=== PATIENT | female | born 1950 | race Asian ===

== ENCOUNTER 2022-09-21 10:15 | Emergency (ER) | payer MEDICARE, SELFPAY ==
--- NOTE | ~2022-09-21 | XR_ITS ---
EXAMINATION: XR knee RT 3V DATE: 09/21/2022 11:56 INDICATION: Right knee pain TECHNIQUE: Three views of the right knee were obtained. COMPARISON: None. FINDINGS: Alignment is normal. No fracture or osteochondral lesion. There is mild tricompartmental os teoarthritis characterized by tiny marginal osteophytes. No joint effusion/synovitis. Soft tissues a re unremarkable. IMPRESSION: 1. No acute osseous abnormality. Reviewed, dictated and finalized at location L.
--- NOTE | ~2022-09-21 | XR_ITS ---
EXAMINATION: XR foot RT min 3V DATE: 09/21/2022 10:49 INDICATION: Right foot pain TECHNIQUE: Dorsoplantar, lateral, and 2 oblique views of the right foot were obtained. COMPARISON: 10/09/2014 FINDINGS: There is a healed fracture in the distal aspect of the fifth metatarsal. No acute fracture is identified. There is mild to moderate polyarticular osteoarthritis. The soft tissues are unremarka ble. IMPRESSION: 1. Healed fifth metatarsal fracture without acute osseous abnormality. Reviewed, dictated and finalized at location L.
[2022-09-21 10:30] VITALS: BP 95/64; PULSE 63; RESP 18; TEMP 36.5; O2SAT 97
--- NOTE | 2022-09-21 11:40 | ED.GENADULT ---
HPI - General Adult General Chief complaint: Extremity Injury, Lower Stated complaint: right foot pain Time Seen by Provider: 09/21/22 11:08 Source: patient Mode of arrival: wheelchair Limitations: no limitations History of Present Illness HPI narrative: This is a 71-year-old female presents to the ED with chief complaint of right foot pain and right knee pain following an injury this morning. Patient states that she was walking outside and stepped on pinecone which caused her to twist and fall down to the ground. States she was initially ambulatory but started to have more pain with ambulation when she got here. Denies any further site of pain or injury. Denies any pop. Denies numbness, weakness. Related Data Allergies Allergy/AdvReac Type Severity Reaction Status Date / Time No Known Allergies Allergy Unverified 08/02/14 22:39 Review of Systems Review of Systems: CONSTITUTIONAL: Denies fever, chills, or sweats. SKIN: Endorses bruising. Denies rash or itching. MUSCULOSKELETAL: Endorses right foot pain and right knee pain. Denies back pain, joint pain, or myalgia. NEUROLOGIC: Denies headache, numbness, dizziness, or weakness. PSYCHIATRIC: Denies anxiety or depression. PMFSH Social History Social History Smoking status: Never smoker Alcohol intake: never Exam Narrative: GENERAL: Well-appearing, well-nourished, and in no acute distress. Presents in wheelchair for mobility. HEAD: Normocephalic, atraumatic. EYES: PERRLA and EOMI. EXTREMITIES: Right knee: Medial bruising. Mild effusion. Mild tenderness medially. No deformity. Normal range of motion. No edema. Left knee: Benign Right foot: Mild bruising to the dorsum of the midfoot. Mild tenderness to the dorsum of the midfoot. No deformity. No swelling. Left foot: Benign MSK exam is otherwise benign. Neurovascularly intact distally in the right lower extremity. Soft compartments. SKIN: Warm, dry, no rash. NEURO: Alert and oriented x3. No focal deficits. PSYCH: Normal mood and affect. Course Vital Signs Vital signs: Vital Signs Temperature 97.7 F 09/21/22 10:30 Pulse Rate 63 09/21/22 10:30 Respiratory Rate 18 09/21/22 10:30 Blood Pressure 95/64 L 09/21/22 10:30 Pulse Oximetry 97 09/21/22 10:30 Oxygen Delivery Room Air 09/21/22 10:30 Temperature 97.7 F 09/21/22 10:30 Pulse Rate 63 09/21/22 10:30 Respiratory Rate 18 09/21/22 10:30 Blood Pressure 95/64 L 09/21/22 10:30 Pulse Oximetry 97 09/21/22 10:30 Oxygen Delivery Room Air 09/21/22 10:30 Medical Decision Making MDM Narrative Medical decision making narrative: This is a 71-year-old female presents to the ED with chief complaint of right foot pain and right knee pain after an injury this morning. She was walking outside and stepped on a pinecone which caused her to fall. Vitals are stable. Tells me that her blood pressure normally runs pretty low. She has some bruising to the medial right knee as well as to the dorsum of the right foot. Mild tenderness in those areas. Imaging does not reveal any acute fractures or dislocations. I do not see evidence of a Lisfranc injury. Informed the patient that her imaging was negative and that she would be given Rigo wrap and crutches for comfort. She is to follow-up with her primary care on this problem. If she does not get better, she may need orthopedic follow-up. Supportive measures discussed, return precautions given. Patient is understanding and agreeable with plan for discharge. Vital Signs Vital Signs: Vital Signs Temperature 97.7 F 09/21/22 10:30 Pulse Rate 63 09/21/22 10:30 Respiratory Rate 18 09/21/22 10:30 Blood Pressure 95/64 L 09/21/22 10:30 Pulse Oximetry 97 09/21/22 10:30 Oxygen Delivery Room Air 09/21/22 10:30 Temperature 97.7 F 09/21/22 10:30 Pulse Rate 63 09/21/22 10:30 Respiratory Rate 18 09/21/22 10:30 Blood Pressure 95/64 L 09/21/22 10:30 Pulse
== END 2022-09-21 12:30 | disposition home or self-care (01) ==
PROVIDERS: Emergency Provider Physician Assistant
DX: S80.01XA Contusion of right knee, initial encounter (principal); S90.31XA Contusion of right foot, initial encounter; W01.0XXA Fall on same level from slipping, tripping and stumbling without subsequent striking against object, initial encounter
CPT/HCPCS: 73562; 73630; 99284

== ENCOUNTER 2022-12-13 14:26 | Emergency (ER) | payer MEDICARE, SELFPAY ==
--- NOTE | ~2022-12-13 | XR_ITS ---
EXAM: XR foot LT min 3V DATE: 12/13/2022 15:24 HISTORY: injury / pain LATERAL FOOT PAIN . COMPARISON: None available. FINDINGS: Decreased mineralization. Mildly comminuted fracture of the distal shaft of the left fifth metatarsal with minimal medial displacement and plantar angulation. No lytic or blastic lesion. Join t spaces are maintained. Plantar enthesopathy. No erosion or periosteal change. Soft tissue swelling over the fracture site. IMPRESSION: Comminuted, minimally displaced and angulated fracture of the left fifth metatarsal shaft . Reviewed, dictated and finalized at location K. IMPRESSION: Comminuted, minimally displaced and angulated fracture of the left fifth metatarsal shaft.
[2022-12-13 14:39] VITALS: BP 124/77; PULSE 83; RESP 16; TEMP 36.8; O2SAT 99
--- NOTE | 2022-12-13 16:11 | ED.LOWEXIN ---
HPI - Extremity Injury (Lower) General Chief Complaint: Extremity Injury, Lower Stated Complaint: L foot pain Time Seen by Provider: 12/13/22 14:56 History of Present Illness HPI Narrative: Patient is a 71-year-old female here for evaluation of left foot pain x4 hours. Patient states that she missed a step when she was getting off of her stepstool and she landed with her foot and eversion. Since then she has had pain and swelling to the lateral aspect of her left foot and she has not been able to bear weight due to the discomfort. She took Tylenol prior to arrival. She had no numbness, tingling, weakness in the foot. Related Data Allergies Allergy/AdvReac Type Severity Reaction Status Date / Time No Known Allergies Allergy Unverified 08/02/14 22:39 Review of Systems Review of Systems: Gen.: Denies fevers or chills Eyes: Denies eye pain or visual change ENT: Denies congestion Respiratory: Denies shortness of breath or cough CV: Denies chest pain or palpitations GI: Denies abdominal pain nausea, emesis or diarrhea denies burning, urgency, frequency or hematuria Musculoskeletal: Reports left foot pain Neuro: Denies numbness, tingling, weakness or focal weakness Skin: Denies rash Except as documented, all other systems reviewed and negative [facility] Social History Social History Smoking status: Never smoker Alcohol intake: never Exam Narrative: Gen: Alert, oriented, no acute distress Eyes: EOMI, no icterus Pulm: Respirations even and unlabored, symmetric thorax expansion, no audible stridor or visible cyanosis CV: 2+ DP PT pulses bilaterally. GI: No distension, no voluntary/involuntary guarding Neuro: AOx4, moves all extremities without apparent difficulty or weakness, follows commands MSK: There is tenderness to palpation to the medial third of the left fifth metatarsal. There is no overlying bruising or swelling or deformity. She has no tenderness to palpation along the ankle joint, knee or hip. Skin: No break in the skin integrity in the left foot. No jaundice, no visible bruising, rashes, lesions or wounds on exposed skin Psych: Normal mood/affect, insight/judgement good, adequate fund of knowledge, recent/remote memory intact Course Vital Signs Vital signs: Vital Signs Temperature 98.2 F 12/13/22 14:39 Pulse Rate 83 12/13/22 14:39 Respiratory Rate 16 12/13/22 14:39 Blood Pressure 124/77 12/13/22 14:39 Pulse Oximetry 99 12/13/22 14:39 Temperature 98.2 F 12/13/22 14:39 Pulse Rate 82 12/13/22 16:45 Respiratory Rate 16 12/13/22 16:45 Blood Pressure 123/80 12/13/22 16:45 Pulse Oximetry 98 12/13/22 16:45 MDM - Extremity Injury (Lower) MDM Narrative Medical decision making narrative: 71-year-old female here for evaluation of left foot pain after inversion injury earlier today with evidence of a comminuted left fifth metatarsal fracture on the x-ray. NVID and she has soft compartments. Patient unable to bear weight, she was placed in a splint and provided with orthopedic follow-up. She declines pain meds in the ED. We discussed return precautions and she voiced understanding. Discharge Plan Discharge Clinical Impression: Fracture of fifth metatarsal bone of left foot Patient Disposition: Home, Self-Care Condition: Stable Instructions: Antibiotic Form, Foot Fracture in Adults (ED), Splint Care (ED) Additional Instructions: You are found to have a fracture in one of the bones in your feet, please wear the splint as directed and follow-up with orthopedist next week. Return to the ED if your toes feel numb and tingly, you have worsening pain, you cannot move the toes. Follow-up/Referrals: PHYSICIAN NOT ON STAFF,NONSTAFF [Primary Care Provider] -
[2022-12-13 16:45] VITALS: BP 123/80; PULSE 82; RESP 16; O2SAT 98
== END 2022-12-13 16:45 | disposition home or self-care (01) ==
PROVIDERS: Emergency Provider Physician Assistant
DX: S92.352A Displaced fracture of fifth metatarsal bone, left foot, initial encounter for closed fracture (principal); W10.9XXA Fall (on) (from) unspecified stairs and steps, initial encounter
CPT/HCPCS: 29515; 73630; 99284

== ENCOUNTER 2025-05-20 15:08 | Emergency (ER) | payer MEDICARE, SELFPAY ==
--- OUTSIDE RECORDS SUMMARY | 2025-05-19 14:00 | XMS_ITS | Encounter Summary ---
Author Organization [facility] Address [address] [facility] [address] [place] [address] Phone Care Team Providers Care Banquet Server Name Role Phone Jeffry Horton MD Primary Care Provider [phone] Ligia Larsen MD Unavailable AftJennie MD PhD Unavailable Donna Moser PhD Unavailable [phone] Nae Hunt SPA ASSOCIATE Unavailable [phone] Trino Loza MD Unavailable [phone] Danika Elizondo MD PhD Unavailable [phone] Reason for Visit * Consultation (Urgent) - Authorized Specialty Diagnoses / Procedures Referred By Alex gomez Referred To Contact Thoracic Surgery / Thoracic Diseases Diagnoses Thymic carcinoma (HCC) Danika Elizondo MD PhD [address] [place] [address] Phone: tel: fax: Kelley Kohler MD [address] [facility] [address] [place] [address] Phone: tel: fax: Referral ID Status Reason Start Date Expiration Date Visits Requested Visits Authorized [id number] Authorized Specialty Services Required 06/04/2026 99 99 Encounter Details Date Type Department Care Team (Late st Contact Info) Description 05/19/2025 2:00 PM INTERNET MANAGER Office Visit [facility] Medicine Surgery [address] [facility] [address] [place] [id number] Kelley Kohler MD [id number] [place] [address] Thymic carcinoma (HCC) (Primary Dx) Social History Tobacco Use Types Packs/Day Years Used Date Smoking Tobacco: Never Passive Smoke Exposure: Never Smokeless Tobacco: Never Alcohol Use Standard Drinks/Week Comments No 0 (1 standard drink = 0.6 oz pur e alcohol) PHQ-2 Answer Date Recorded PHQ-2 Total Score (If total score is 3 or more points, staff should administer the PHQ-9) 2 04/16/2025 AUDIT-C Answer Date Recorded Frequency of Alcohol Consumption Not on file 03/19/2025 Q2: How many drinks containi ng alcohol do you have on a typical day when you are drinking? Patient does not drink Frequency of Binge Drinking Not on file 07/2024 Personal Safety Answer Date Recorded Have you ever been in or are you currently in a harmful physical or emotional relationship or is someone making you feel afraid or unsafe? 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 Not on file Not on file Not on file documented as of this encounter Last Filed Vital Signs Vital Sign Reading Time Taken Comments Blood Pressure 122/75 05/19/2025 1:52 PM INTERNET MANAGER Pulse 71 05/19/2025 1:52 PM INTERNET MANAGER Temperature 36.3 C (97.3 F) 05/19/2025 1:52 PM INTERNET MANAGER Respiratory Rate 18 05/19/2025 1:52 PM INTERNET MANAGER Oxygen Saturation 98% 05/19/2025 1:52 PM INTERNET MANAGER Inhaled Oxygen Concentration - - Weight 66 kg (145 lb 8 oz) 05/19/2025 1:52 PM CS T Height - - Body Mass Index 25.77 05/13/2025 4:46 PM INTERNET MANAGER documented in this encounter Functional Status * BP Location Answer Date of Assessment Author Left arm 05/19/2025 1:52 PM INTERNET MANAGER Demario Lees CMA * BP Location Answer Date of Assessment Author Left arm 05/19/2025 1:52 PM INTERNET MANAGER Demario Lees CMA documented as of this encounter Progress Notes * Kelley Kohler MD - 05/19/2025 2:00 PM CST Images from the original note were not included. Consult requested by: Danika Elizondo MD PhD PCP: Jeffry Horton MD New Patient Consult Dear Dr. Elizondo: Thank you for asking me to see Hari Rocha in consultation. I saw the patient in clinic today with a steam turbine operator: Adonay Craig SPA ASSOCIATE. As you know, Hari Rocha is a 74 y.o. female here for the main complaint of thymic carcinoma HPI: Hari Rocha is a 74 y.o. female never smoker who had previous left breast cancer (stage I s/p RT/chemo) who presented with hemoptysis in 01/13/25 and was found to have a soft tissue right anterior mediastinal mass. This was found when she had hemoptysis in December [address] [facility] Diagnosed with PNA and treated - follow up CT showed this soft-tissue mass in the mediastinum She walks 2 miles/day Breast surgery but no other chest surgeries, laminectomies and MRIs in previous imaging ROS: The review of systems was scanned in as a separate entry and I personally reviewed this. History: I have reviewed and agree with the past medical history, social history, family history and review of systems entered into the medical record. We also reviewed and updated the medication list and allergies. The history was pertinent for breast cancer (stage I, s/p partial mastectomy and radiation and TCx4 cycles in 2015), hypercholesteremia, DDD, spinal stenosis, LEONEL on CPAP, GERD, glaucoma. The patient's smoking history: reports that she has never smoked. She has never been exposed to tobacco smoke. She has never used smokeless tobacco. OBJECTIVE: Vitals BP 122/75 (BP Location: Left arm, Patient Position: Sitting) Pulse 71 Temp 36.3 ??C (97.3 ??F) (Temporal) Resp 18 Wt 66 kg (145 lb 8 oz) SpO2 98% BMI 25.77 kg/m?? Wt Readings from Last 1 Encounters: 05/19/25 66 kg (145 lb 8 oz) ECOG PERFORMANCE STATUS: 1 Restricted in physically strenuous activity but ambulatory and able to carry out work of a light or sedentary nature, e.g., light house work, office work Physical Exam On physical exam, patient is well appearing and in no acute distress. I have reviewed the vital signs taken in clinic today. The eyes, ears, nose and throat are normal. The skin is clear, with no icterus. No cervical or supraclavicular adenopathy. Regular rate, non-labored breathing. Abdomen is soft and nontender. There is no lower extremity edema. Skin is warm and dry. Mood and affect are normal. Patient is alert and oriented x 3. 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 3) MRI Brain 05/13/25: MRI on 05/13/2025. This was negative for intracranial metastasis. 4) MRI chest 03/28/25: FINDINGS: Again seen is a anterior mediastinal mass measuring 4.9 cm x 3.7 cm x 6.2 cm. This mass is not significantly changed in size This mass abuts the tubular ascending aorta. The mass encases the superior vena cava and left brachiocephalic vein resulting in mass effect and mild stenosis. There is additional abutment of subsegmental branches of the right upper lobe pulmonary arteries. The mass additionally abuts the anterior pericardium, posterior sternum, and right internal mammary neurovascular bundle. The mass is mildly T2 hyperintense with heterogeneous signal due to areas of susceptibility from calcification. The mass has progressive enhancement during the dynamic phases of postcontrast imaging. This is most apparent at its periphery. No microscopic fat on in and opposed imaging. There are numerous tree-in-bud nodules in the right lung, which are better evaluated on prior CT. There is bandlike consolidation in the lingula, which is improved compared to CT within the limitations in differences in technique. THORACIC AORTA: Sinuses of Valsalva (cusp to commissure): 30 mm x 30 mm x 29 mm Sinotubular junction: 35 mm x 33 mm Ascending aorta: 42 mm x 42 mm Descending thoracic aorta: 27 mm x 27 mm IMPRESSION: 1. Right anterior mediastinal mass, which is unchanged in size compared to 01/13/2025. 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 2. Encasement of the superior vena cava and left brachiocephalic vein by the mediastinal mass. There is mild narrowing of the superior vena cava, which remains patent. There is additional abutment of multiple structures, including the tubular ascending aorta, as above. 3. Similar tree-in-bud nodules in the right lung with improvement in lingular consolidation, which may be related to an infectious granulomatous process such as atypical mycobacterium. 4. Mildly dilated ascending aorta at 42 mm. 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 The tumor is somewhat complex in that it is wrapping around the innominate vein, and it compresses the SVC extra pericardial lead. There is abutment to the aorta. It appears that this likely is resectable although I am worried about a aortic margin. To resect this tumor we would have to do a sternotomy and reconstruct thesuperior vena cava and ligate the innominate vein. There is a possibility based on the imaging thatI can tell right now that there will be a positive R 1 margin on the aorta. I talked to the patientin depth about the procedure. I talked to her about this risk. I talked to Dr. Worthington about this as well. I did talk to Dr. Elizondo about doing induction chemotherapy 1st, the patient and Dr. Worthington are not super enthusiastic about this approach given that it is quite toxic and it could set her back functionally. We talked about risks of an operation, we talked about infection, bleeding, we talked about how thephrenic nerve would likely be taken and we would try to do a diaphragm plication at the same time of the operation. We talked about the possibility of an R1 resection. We talked about the possibilityof not being able to get the tumor off the aorta. We settled that we would discuss her case at tumor board tonight and get more information from the radiologist about their interpretation of the imaging and whether or not there is a plane on the aorta that can come off. If there is then we would likely plan for a resection 1st approach and adjuvant chemotherapy. We also discussed with the radiation oncologist there thought and whether or not they can provide some adjuvant radiotherapy or her chances of treatment with radiation alone and without surgery if we thought this was unresectable after discussion with our radiologist at tumor board. I provided counseling and education to the patient and to family/caregiver. We discussed the options available at this point, and discussed the risks for morbidity with and without intervention. We discussed management of the issues and settled on the following plans for management: Plan for discussion at tumor board Potential for upfront surgical resection with diaphragm plication versus nonoperative management versus neoadjuvant chemotherapy approach Kelley Kohler MD Security Guard Dispatcher completed with [employer]. Security Guard Dispatcher variances may occur. RNET MANAGER documented in this encounter Plan of Treatment Not on file documented as of this encounter Goals Goal Patient Goal Type Associated Problems Recent Progress Patient-Stated? Author CCM Chronic Pain Care Plan Chronic Care Management No Alma Singh, RN Note: Problem: Chronic Pain Goals: 1. Minimize further functional decline 2. Maximize quality of life 3. Control pain Strategies: - Activity/exercise program recommendation - Conservative stepwise pain medicine strategy with multi-disciplinary approach - Recommend healthy lifestyle strategies and compensatory methods as needed Reduce the likelihood of falling Lifestyle No Alma Singh, RN Note: Below are four things you can do to prevent falls: Begin an exercise program to improve your leg strength & balance Ask your doctor or pharmacist to review your medicines Get annual eye check-ups & update your eyeglasses Make your home safer by: Removing clutter & tripping hazards Putting railings on all stairs & adding grab bars in the bathroom Having good lighting, especially on stairs Contact your local community or senior center for information on exercise, fall prevention programs, or options for improving home safety. 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 documented in this encounter Orders Outpatient Referral Count Last Ordered Date Fir st Ordered Date AMB REFERRAL TO THORACIC SURGERY 1 05/19/20 25 documented in this encounter Care Teams Banquet Server Relationship Specialty Start Date End Date Jeffry Horton MD [facility] [address] [address] PCP - General Internal Medicine 11/05/17 Ligia Larsen MD [address] [place] [address] Radiation Oncologist Radiation Oncology 09/10/18 AftJennie MD PhD [address] [place] [address] Surgeon Surgical Oncology 09/10/18 Donna Moser, PhD [address] [facility] [place] [address] Nurse Practitioner Radiation Oncology 09/10/18 Nae Hunt SPA ASSOCIATE [address] [place] [address] Nurse Practitioner Medical Oncology 01/12/20 Trino Loza MD [address] [facility] [place] [address] Referring Physician Pulmonary Disease 04/30/25 Danika Elizondo MD PhD [address] [facility] [place] [address] Medical Oncologist/Creative Intern Medical Oncology 04/30/25 documented as of this encounter
--- OUTSIDE RECORDS SUMMARY | 2025-05-19 14:00 | XMS_ITS | Encounter Summary ---
Author Organization [facility] Address [address] [facility] [address] [place] [address] Phone Care Team Providers Care Tank Cooper Name Role Phone Jeffry Horton MD Primary Care Provider [phone] Ligia Larsen MD Unavailable AftJennie MD PhD Unavailable Donna Moser PhD Unavailable [phone] Nae Hunt LETTER CARRIER Unavailable [phone] Trino Loza MD Unavailable [phone] Danika Elizondo MD PhD Unavailable Reason for Visit * Consultation (Urgent) - Authorized Specialty Diagnoses / Procedures Referred By Alex gomez Referred To Contact Thoracic Surgery / Thoracic Diseases Diagnoses Thymic carcinoma (HCC) Danika Elizondo MD PhD [address] [place] [address] Phone: tel: fax: Kelley Kohler MD [address] [facility] 8[address]10[address]17 [place] [address] Phone: tel: fax: Referral ID Status Reason Start Date Expiration Date Visits Requested Visits Authorized [id number] Authorized Specialty Services Required 06/04/2026 99 99 Encounter Details Date Type Department Care Team (Late st Contact Info) Description 05/19/2025 2:00 PM MALT HOUSE SUPERVISOR Office Visit [facility] Medicine Surgery [address] [facility] Floor 5 [place] [id number] Kelley Kohler MD [id number] [place] [address] Thymic carcinoma (HCC) (Primary Dx) Social History [...] on file Legal Sex Female 1:14 AM MALT HOUSE SUPERVISOR Gender Identity Female 05/14/2020 6:01 PM MALT HOUSE SUPERVISOR Sexual Orientation Straight 03/03/2019 8: 24 PM CDT 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 Not on file Not on file Not on file documented as of this encounter Last Filed Vital Signs Vital Sign Reading Time Taken Comments Blood Pressure 122/75 05/19/2025 1:52 PM MALT HOUSE SUPERVISOR Pulse 71 05/19/2025 1:52 PM MALT HOUSE SUPERVISOR Temperature 36.3 C (97.3 F) 05/19/2025 1:52 PM MALT HOUSE SUPERVISOR Respiratory Rate 18 05/19/2025 1:52 PM MALT HOUSE SUPERVISOR Oxygen Saturation 98% 05/19/2025 1:52 PM MALT HOUSE SUPERVISOR Inhaled Oxygen Concentration - - Weight 66 kg (145 lb 8 oz) 05/19/2025 1:52 PM CS T Height - - Body Mass Index 25.77 05/13/2025 4:46 PM MALT HOUSE SUPERVISOR documented in this encounter Functional Status * BP Location Answer Date of Assessment Author Left arm 05/19/2025 1:52 PM MALT HOUSE SUPERVISOR Demario Lees CMA * BP Location Answer Date of Assessment Author Left arm 05/19/2025 1:52 PM MALT HOUSE SUPERVISOR Demario Lees CMA documented as of this [...] the patient in clinic today with a presentation team member: Adonay Craig LETTER CARRIER. As you know, Hari Rocha is a [...] found when she had hemoptysis in December [address] [facility] Diagnosed with PNA and treated - follow [...] versus neoadjuvant chemotherapy approach Kelley Kohler MD Warehouse Supervisor 3Rd Shift completed with [employer]. Warehouse Supervisor 3Rd Shift variances may occur. HOUSE SUPERVISOR documented in this encounter Plan of Treatment [...] 25 documented in this encounter Care Teams Tank Cooper Relationship Specialty Start Date End Date Jeffry Horton MD [facility]0 [facility] [address] [address] PCP - General Internal Medicine 11/05/17 Ligia Larsen MD [address] [facility] [address] [place] [address] Radiation Oncologist Radiation Oncology 09/10/18 AftJennie MD PhD [address] [place] [address] Surgeon Surgical Oncology 09/10/18 Donna Moser, PhD [address] [facility] [address] [place] [address] Nurse Practitioner Radiation Oncology 09/10/18 Nae uHnt LETTER CARRIER [address] [place] [address] Nurse Practitioner Medical Oncology 01/12/20 Trino Loza MD [address] DIV IM PULMONARY AND CCM, [address] [place] [address] Referring Physician Pulmonary Disease 04/30/25 Danika Elizondo MD PhD [address] [facility] MEDICAL ONCOLOGY, [address], [address]B, [address] [place] [address] Medical Oncologist/Furnace Firer Medical Oncology 04/30/25 documented as of this encounter
--- OUTSIDE RECORDS SUMMARY | 2025-05-19 15:00 | XMS_ITS | Encounter Summary ---
Author Organization [facility] Address [address] [place] [address] Phone Care Team Providers Care Resource Director Name Role Phone Jeffry Horton MD Primary Care Provider [phone] Ligia Larsen MD Unavailable Aft, Jennie Pack MD PhD Unavailable Donna Moser PhD Unavailable [phone] Nae Hunt NAILHEAD SETTER Unavailable [phone] Trino Loza MD Unavailable [phone] Danika Elizondo MD PhD Unavailable [phone] Encounter Details Date Type Department Care Team (Late st Contact Info) Description 05/19/2025 3:00 PM POSTAL SORTING OFFICER Office Visit [facility] Medicine Oncology [address] [facility] Floor 5 [place] [address] Danika Elizondo MD PhD [address] [place] [address] Thymic carcinoma (HCC) Social History Tobacco Use Types Packs/Day Years [...] on file Legal Sex Female 1:14 AM POSTAL SORTING OFFICER Gender Identity Female 05/14/2020 6:01 PM POSTAL SORTING OFFICER Sexual Orientation Straight 03/03/2019 8: 24 PM CDT 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 documented in this encounter Orders Appointment Requests Count Last Ordered Date Fi rst Ordered Date ONCBCN CLINIC APPOINTMENT REQUEST 1 025 documented in this encounter Care Teams Resource Director Relationship Specialty Start Date End Date Jeffry Horton MD [address] [place] [address] [address] [facility] [address] [place] [address] PCP - General Internal Medicine 11/05/17 Ligia Larsen MD [address] [place] [address] Radiation Oncologist Radiation Oncology 09/10/18 IvonnetJennie MD PhD [address] [place] [address] Surgeon Surgical Oncology 09/10/18 Donna Moser, PhD [address] [place] [address] Nurse Practitioner Radiation Oncology 09/10/18 Nae Hunt, NAILHEAD SETTER [address] [place] [address] Nurse Practitioner Medical Oncology 01/12/20 Trino Loza MD [address] DIV IM PULMONARY AND CCM, [address] [place] [address] Referring Physician Pulmonary Disease 04/30/25 Danika Elizondo MD PhD [address] DIV IM MEDICAL ONCOLOGY, [facility] 7A, 7B, [address] [place] [address] Medical Oncologist/Heddler Tier Medical Oncology 04/30/25 documented as of this encounter
--- OUTSIDE RECORDS SUMMARY | 2025-05-19 15:00 | XMS_ITS | Encounter Summary ---
Author Organization [facility] Address [address] [place] [address] Phone Care Team Providers Care Entry Level Accountant Name Role Phone Jeffry Horton MD Primary Care Provider Ligia Larsen MD Unavailable Aft, Jennie Pack MD PhD Unavailable [phone] Donna Moser PhD Unavailable [phone] Nae Hunt ORACLE DATABASE ARCHITECT Unavailable Trino Loza MD Unavailable [phone] Danika Elizondo MD PhD Unavailable [phone] Encounter Details Date Type Department Care Team (Late st Contact Info) Description 05/19/2025 3:00 PM COMMODITIES REQUIREMENTS ANALYST Office Visit [facility] Medicine Oncology [address] [facility] Floor 5 [place] [address] Danika Elizondo MD PhD [address] [place] [address] Thymic carcinoma (HCC) Social History [...] on file Legal Sex Female 1:14 AM COMMODITIES REQUIREMENTS ANALYST Gender Identity Female 05/14/2020 6:01 PM COMMODITIES REQUIREMENTS ANALYST Sexual Orientation Straight 03/03/2019 8: 24 PM CDT 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 documented in this encounter Orders Appointment Requests Count Last Ordered Date Fi rst Ordered Date ONCBCN CLINIC APPOINTMENT REQUEST 1 025 documented in this encounter Care Teams Entry Level Accountant Relationship Specialty Start Date End Date Jeffry Horton MD [address] [place] [address] [address] [facility] [address] [place] [address] PCP - General Internal Medicine 11/05/17 Ligia Larsen MD [address] [place] [address] Radiation Oncologist Radiation Oncology 09/10/18 IvonnetJennie MD PhD [address] [place] [address] Surgeon Surgical Oncology 09/10/18 Donna Moser, PhD [address] [place] [address] Nurse Practitioner Radiation Oncology 09/10/18 Nae Hunt, ORACLE DATABASE ARCHITECT [address] [place] [address] Nurse Practitioner Medical Oncology 01/12/20 Trino Loza MD [address] DIV IM PULMONARY AND CCM, [address] [place] [address] Referring Physician Pulmonary Disease 04/30/25 Danika Elizondo MD PhD [address] DIV IM MEDICAL ONCOLOGY, [facility] 7A, 7B, [address] [place] [address] Medical Oncologist/Orthopedics Nurse Medical Oncology 04/30/25 documented as of this encounter
--- NOTE | ~2025-05-20 | XR_ITS ---
EXAMINATION: XR foot LT min 3V, 05/20/2025 15:20 DERRICK WORKER [employer] HISTORY: injury COMPARISON: No comparisons available. Findings: Nondisplaced fractures of the proximal fourth and fifth metatarsals. Nondisplaced fracture of the shaft of the fourth metatarsal. There is a remote appearing fracture of the distal fifth metatarsal. No significant degenerative changes. Soft tissues unremarkable. Impression: Fractures detailed above Reviewed, dictated and finalized at location P. ICK WORKER [employer] Impression: Fractures detailed above
--- NOTE | ~2025-05-20 | XR_ITS ---
EXAMINATION: XR ankle LT min 3V, 05/20/2025 15:20 CARPENTRY FOREMAN HISTORY: injury COMPARISON: No comparisons available. Findings: No acute fracture or malalignment. No significant degenerative changes. Soft tissues unremarkable. Impression: No acute fracture or malalignment. Reviewed, dictated and finalized at location P. ENTRY FOREMAN Impression: No acute fracture or malalignment.
--- NOTE | 2025-05-20 15:22 | PC.NURSE ---
patient in x-ray at this time
--- NOTE | 2025-05-20 15:23 | PC.NURSE ---
patient in x-ray at this time
[2025-05-20 15:40] VITALS: BP 125/87; PULSE 70; RESP 16; TEMP 36.3; O2SAT 98
--- NOTE | 2025-05-20 15:41 | ED_ITS ---
HPI - Extremity Injury (Lower) General Chief Complaint: Extremity Injury, Lower Stated Complaint: L ankle injury Time Seen by Provider: 05/20/25 15:10 History of Present Illness HPI Narrative: 74-year-old female presents ER complaining of left foot pain. Patient states that she fell down several stairs, twisting her foot. No other injuries. Unable to bear weight her and ambulate. Related Data Home Medications ?Medication ?Instructions ?Recorded ?Confirmed ?Last Taken ?Type No Home Medications 12/14/22 01/17/23 U nknown History Allergies Allergy/AdvReac Type Severity Reaction Status Date / Time No Known Allergies Allergy Unverified 01/17/23 09:45 Review of Systems Review of Systems: All systems reviewed & are unremarkable except as noted in HPI and below PMFSH Past Medical History Medical History Arthritis of right shoulder region Social History Social History Smoking status: Never smoker Alcohol intake: never Exam Const: General: healthy appearing, no acute distress and alert Nutritional Appearance: well nourished Resp: Effort & Inspection: normal respiratory effort Auscultation: clear to auscultation bilaterally Cardio: Rate: regular rate Rhythm: regular rhythm Skin: General skin exam: normal color Neuro: General: patient oriented x3 and moves all extremities Extrem: Other: left foot: TTP with STS over the 4th and 5th metatarsals. Limited range of motion. Neurovascular is intact distally MDM MDM Narrative Medical decision making narrative: In summary: Some 4 old female presents the ER complained left foot pain following fall down several stairs. Imaging shows evidence of fractures of the 4th and 5th metatarsals. Patient was placed into a walking boot. Will use a walker she has at home. Refused pain medication. Differential Diagnosis Differential Diagnosis: Foot fracture, foot sprain, foot contusion dislocation Imaging Data Radiologist's impression: ITS Impressions Foot X-Ray 05/20/25 15:31 Impression: Fractures detailed above Ankle X-Ray 05/20/25 15:32 Impression: No acute fracture or malalignment. Discharge Plan Discharge Clinical Impression: Foot fracture, left Qualifiers: Encounter type: initial encounter Fracture type: closed Qualified Code(s): S92.902A - Unspecified fracture of left foot, initial encounter for closed fracture Patient Disposition: Home Condition: Stable Instructions: Antibiotic Form Patient Language: Micronesian Prescriptions: No Action No Home Medications Follow-up/Referrals: Ganesh Collins Jr., DPM [Physician, Podiatry] PHYSICIAN NOT ON STAFF,NONSTAFF [Primary Care Provider] Dallas Vincent MD [Physician, Orthopedics] Time of Disposition: 15:49
--- OUTSIDE RECORDS SUMMARY | 2025-05-20 16:28 | XMS_ITS | Clinical Summary ---
Author Organization [facility] Address [facility] [place] [address] Care Team Providers Care Wood Science Professor Name Role Phone Unavailable Primary Care Provider Unavailabl e Immunizations Immunization Administration Dates Next Due MODERNA COVID-19 (12+) MRNA, LNP-S, PF, 100 MCG/ 0.5 ML DOSE 08/05/2020,07/08/2020 Social History Tobacco Use Types Packs/Day Years Used Date Smoking Tobacco: Never Assessed Comments Unknown Sex and Gender Information Value Date Recorded Sex Assigned at Not on file Legal Sex Female 11:33 AM ROVING TECHNICIAN Gender Identity Not on file Sexual Orientation Not on file Plan of Treatment Health Maintenance Due Date Last Done Comments Colorectal Cancer Screening Colonoscopy (10 Years) 1950 Hepatitis C 1968 Mammogram Screening 1990 Zoster Vaccines (2 of 3) 06/29/2014 05/04/2014 Dexa Scan (General) 12/30/2015 DTaP, Tdap and Td Vaccines (2 - Td or Tdap) 08/08/2017 08/08/2007 COVID-19 Vaccine (3 - season) 2025 08/05/2020, 07/08/2020 Influenza Adult (#1) 2025 03/11/2019, 03/18/2018, 02/26/2018, Additional history exists RSV Immunization or 60+ Years (1 - 1-dose 75+ series) 2025 Pneumococcal Vaccine: 50+ Years Completed 06/18/2017, 06/18/2016, 06/13/2016, Additional history exists Hepatitis A Vaccines Aged Out No long er eligible based on patient's age to complete this topic Meningococcal B Vaccine Aged Out No l onger eligible based on patient's age to complete this topic Meningococcal Vaccine Aged Out No tory bravo eligible based on patient's age to complete this topic RSV Immunizations Under 20 Months Aged Out No longer eligible based on patient's age to complete this topic
--- OUTSIDE RECORDS SUMMARY | 2025-05-20 16:28 | XMS_ITS | Encounter Summary ---
Author Organization [facility] Address [address] [place] [address] Phone Care Team Providers Care Molding Cutter Name Role Phone Jeffry Horton MD Primary Care Provider [phone] Ligia Larsen MD Unavailable Aft, Jennie Pack MD PhD Unavailable Donna Moser PhD Unavailable [phone] Nae Hunt PROPERTY LOSS INSURANCE CLAIM ADJUSTER Unavailable [phone] Trino Loza MD Unavailable [phone] Danika Elizondo MD PhD Unavailable Encounter Details Date Type Department Care Team (Late st Contact Info) Description 03/23/2025 Results Follow-Up [facility] Medicine Pulmonary [address] [facility] Advanced Medicine 8th [place] [address] [place] [address] Trino Loza MD [address] [facility] [address] [place] [address] [email or web address] Blood Social History Tobacco Use Types Packs/Day Years Used Date Smoking Tobacco: Never Passive Smoke Exposure: Never Smokeless Tobacco: Never Alcohol Use Standard Drinks/Week Comments No 0 (1 standard drink = 0.6 oz pur e alcohol) PHQ-2 Answer Date Recorded PHQ-2 Total Score (If total score is 3 or more points, staff should administer the PHQ-9) 2 03/11/2025 AUDIT-C Answer Date Recorded Frequency of Alcohol [...] on file Legal Sex Female 1:14 AM STEAM AND GAS TURBINE ASSEMBLER Gender Identity Female 05/14/2020 6:01 PM STEAM AND GAS TURBINE ASSEMBLER Sexual Orientation Straight 03/03/2019 8: 24 PM CDT 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 Author CCM Chronic Pain Care Plan Chronic Care Management No Alma Singh, DAYAN Note: Problem: Chronic Pain Goals: 1. Minimize further functional decline 2. Maximize quality of life 3. Control pain Strategies: - Activity/exercise program recommendation - Conservative stepwise pain medicine strategy with multi-disciplinary approach - Recommend healthy lifestyle strategies and compensatory methods as needed Reduce the likelihood of falling Lifestyle No Alma Singh, DAYAN Note: Below are four things you can [...] stairs Contact your local community or [facility] [place] for information on exercise, fall prevention programs, or options for improving home safety. documented as of this encounter Visit Diagnoses Not on filedocumented in this encounter Care Teams Molding Cutter Relationship Specialty Start Date End Date Jeffry Horton MD [address] [place] [address] PCP - General Internal Medicine 11/05/17 Ligia Larsen MD [address] [place] [address] Radiation Oncologist Radiation Oncology 09/10/18 AftJennie MD PhD [address] [place] [address] Surgeon Surgical Oncology 09/10/18 Donna Moser, PhD [address] [place] [address] Nurse Practitioner Radiation Oncology 09/10/18 Nae Hunt, PROPERTY LOSS INSURANCE CLAIM ADJUSTER [address] [place] [address] Nurse Practitioner Medical Oncology 01/12/20 Trino Loza MD [address] DIV IM PULMONARY AND CCM, [address] [place] [address] Referring Physician Pulmonary Disease 04/30/25 Danika Elizondo MD PhD [address] DIV IM MEDICAL ONCOLOGY, [address], [address] [place] [address] Medical Oncologist/Insurance Legal Assistant Medical Oncology 04/30/25 documented as of this encounter
--- OUTSIDE RECORDS SUMMARY | 2025-05-20 16:28 | XMS_ITS | Encounter Summary ---
Author Organization [facility] Address [address] [place] [address] Phone Care Team Providers Care Image Scientist Name Role Phone Jeffry Horton MD Primary Care Provider [phone] Ligia Larsen MD Unavailable Aft, Jennie Pack MD PhD Unavailable [phone] Donna Moser PhD Unavailable [phone] Nae Hunt RADAR ENGINEER Unavailable Trino Loza MD Unavailable [phone] Danika Elizondo MD PhD Unavailable [phone] Encounter Details Date Type Department Care Team (Late st Contact Info) Description 04/16/2025 Results Follow-Up [facility] Medicine Pulmonary [address] [facility] Advanced Medicine 8th [place] [address] [place] [address] Trino Loza MD [address] [facility] [address] [place] [address] Differential, auto Social History Tobacco Use Types Packs/Day Years [...] on file Legal Sex Female 1:14 AM TRANSFER STATION ATTENDANT Gender Identity Female 05/14/2020 6:01 PM TRANSFER STATION ATTENDANT Sexual Orientation Straight 03/03/2019 8: 24 PM CDT 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 Answer Date of Assessment Author Never 04/16/2025 1:47 PM CDT Michael Yao Provider * Q2: How many drinks containing alcohol do you have on a typical day when you are drinking? Answer Date of Assessment Author Patient does not drink 04/16/2025 1:47 PM CDT My chart, Generic Provider * Q3: How often do you have six or more drinks on one occasion? Answer Date of Assessment Author Never 04/16/2025 1:47 PM CDT Michael Yao Provider documented as of this encounter Plan of Treatment Not on file documented as of this encounter Goals Goal Patient Goal Type Associated Problems Recent Progress Patient-Stated? Author [facility] Chronic Pain Care Plan Chronic Care Management No Alma Singh, DAYAN Note: Problem: Chronic Pain Goals: 1. Minimize further functional decline 2. Maximize quality of life 3. Control pain Strategies: - Activity/exercise program recommendation - Conservative stepwise pain medicine strategy with multi-disciplinary approach - Recommend healthy lifestyle strategies and compensatory methods as needed Reduce the likelihood of falling Lifestyle Alma Merchant RN Note: Below are four things you [...] on stairs Contact your local community or [facility] for information on exercise, fall prevention programs, or options for improving home safety. documented as of this encounter Visit Diagnoses Not on filedocumented in this encounter Care Teams Image Scientist Relationship Specialty Start Date End Date Jeffry Horton MD [facility] [address] [address] PCP - General Internal Medicine 11/05/17 Ligia Larsen MD [address] [facility] # LL [facility] [address] [place] [address] Radiation Oncologist Radiation Oncology 09/10/18 Jennie Liu MD PhD [address] [facility] [address] LL [facility] [address] [place] [address] Surgeon Surgical Oncology 09/10/18 Donna Moser, PhD [address] [facility] [address] LL [facility] [address] [place] [address] Nurse Practitioner Radiation Oncology 09/10/18 Nae Hunt, RADAR ENGINEER [address] [place] [address] Nurse Practitioner Medical Oncology 01/12/20 Trino Loza MD [address] [facility] [address] DIV IM PULMONARY AND CCM, [address] [place] [address] Referring Physician Pulmonary Disease 04/30/25 Danika Elizondo MD PhD [address] [facility] [address] DIV IM MEDICAL ONCOLOGY, [address], [address], [address] [place] [address] Medical Oncologist/Bell Tier Medical Oncology 04/30/25 documented as of this encounter
--- OUTSIDE RECORDS SUMMARY | 2025-05-20 16:28 | XMS_ITS | Encounter Summary ---
Author Organization [facility] Address [address] [place] [address] Care Team Providers Care [employer] English Teacher Name Role Phone Jeffry Horton MD Primary Care Provider Ligia Larsen MD Unavailable Aft, Jennie Pack MD PhD Unavailable [phone] Donna Moser PhD Unavailable [phone] Nae Hunt SECURITY TECH Unavailable [phone] Trino Loza MD Unavailable [phone] Danika Elizondo MD PhD Unavailable [phone] Encounter Details Date Type Department Care Team (Late st Contact Info) Description 04/20/2025 Results Follow-Up [facility] [address] [place] [address] Jeffry Horton MD [address] [place] [address] [address] [facility] [address] [place] [address] Lipid panel, Hemoglobin A1c, Comprehensive metabolic panel, without glucose (Outreach), Additional followed-up results: 2 Social History Tobacco Use Types Packs/Day Years [...] on file Legal Sex Female 1:14 AM SAMPLE DRILLER Gender Identity Female 05/14/2020 6:01 PM SAMPLE DRILLER Sexual Orientation Straight 03/03/2019 8: 24 PM CDT 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 Not on file Not on file Not on file documented as of this encounter Functional Status * Question Answer Date of Assessment Author MAP (mmHg) 86 04/22/2025 10:30 AM Chasity Angelo RN * [place] Fall Risk Question Answer Date of Assessment Author History of Falling 0 04/22/2025 8:29 AM Chasity Barahona RN Secondary Diagnosis 0 04/22/2025 8:29 AM CS Chasity Wade RN Ambulatory Aids 0 04/22/2025 8:29 AM Chasity Headley RN Intravenous Therapy/Heparin/Saline Lock 0 04/22/2025 8:29 AM Ashia Barahona RN Gait/Transferring 0 04/22/2025 8:29 AM Chasity Barahona RN Mental Status 0 04/22/2025 8:29 AM Chasity Angelo RN [place] Fall Risk Score (Score >= 45 places fall precaution order) 0 04/22/2025 8:29 AM Chasity Barahona RN Prior Fall Event (Autopopulated from EMR) None found 04/22/2025 8:29 AM Emperatriz Barahona RN * BP Location Answer Date of Assessment Author Right arm 04/20/2025 1:24 PM Shin Marrero MA * BP Location Answer Date of Assessment Author Right arm 04/20/2025 1:24 PM Shin Marrero MA documented as of this encounter Plan of [...] on stairs Contact your local community or [facility] for information on exercise, fall prevention programs, or options for improving home safety. documented as of this encounter Visit Diagnoses Not on filedocumented in this encounter Care Teams [employer] English Teacher Relationship Specialty Start Date End Date Jeffry Horton MD [address] [place] [address] [address] [place] [address] PCP - General Internal Medicine 11/05/17 Ligia Larsen MD [address] [facility] [address] [place] [address] Radiation Oncologist Radiation Oncology 09/10/18 Jennie Liu MD PhD [address] [place] [address] Surgeon Surgical Oncology 09/10/18 Donna Moser, PhD [address] [facility] [address] [place] [address] Nurse Practitioner Radiation Oncology 09/10/18 Nae Hunt, SECURITY TECH [address] [facility] [place] [address] Nurse Practitioner Medical Oncology 01/12/20 Trino Loza MD [address] [facility] [address] DIV IM PULMONARY AND CCM, [address] [place] [address] Referring Physician Pulmonary Disease 04/30/25 Danika Elizondo MD PhD [address] [facility] [address] DIV IM MEDICAL ONCOLOGY, [address] [place] [address] Medical Oncologist/Angle Furnaceman Medical Oncology 04/30/25 documented as of this encounter
--- OUTSIDE RECORDS SUMMARY | 2025-05-20 16:28 | XMS_ITS | Data Portability ---
[facility] [address] [facility] [place] [address] Care Team Providers Care Chartered Wealth Manager Name Role Phone XENA PRAKASH Mill Stenciler MICHAEL HENDRIX Primary Care Provider Assessment No assessment recorded. Plan of Treatment Reminders Order Date Submit Date Provider Last Modified By Organization Details Last Modified Time Details Appointments None recorded. Lab CBC 2016 017 [facility], [address] [facility] [address] [address], [place], [address], 7 08:31:00 CMP, serum or plasma 2016 017 [facility], [address] [facility] [address] [address], [address], [place], [address], 7 08:31:00 vitamin B12 + folate, serum or blood 2016 017 [facility], [address] [facility], [place], [address], 7 08:31:01 pap, IG + reflex HR HPV (16+18) 2016 017 [facility], [address] [facility] [address] [address], [address], [place], [address], 7 14:36:53 vitamin D, 25-hydroxy, total, serum 2015 016 [facility], [address], [place], [address], 6 04:30:04 HbA1c (hemoglobin A1c), blood 2015 016 [facility], [address], [address], [place], [address], 6 04:29:58 CBC 2015 016 [facility], [address], [address], [place], [address], 6 04:29:56 lipid panel, serum 2015 016 [facility], [address], [address], [place], [address], 6 04:29:55 CMP, serum or plasma 2015 016 [facility], [address], [address], [place], [address], 6 04:30:20 TSH, ultra-sensi tive, serum 2015 016 [facility], [address], [address], [place], [address], 6 04:30:11 Referral colonoscopy referral 2016 017 [email or web address] Not available 7 15:18:10 Procedures None recorded. Surgeries None recorded. Imaging MAMMO, diagnostic, digital, unilateral - Pt. had a lumpectomy and subsequentl y a benign needle biopsy with clip placement. 2016 017 [email or web address] Not available 7 15:18:10 Medication Orders None recorded. Patient TargetsNo targets recorded. Patient Instructions Encounter Date Encounter Id Patient Instructions Last Modified By Organization Details Last Modified Time 09/09/2015 [id number] breast lumps: care instructions [email or web address] Not available 09/09/2015 16:37:25 04/13/2016 [id number] healthy diet and exercise f/u in 6 month nsuthan Not available 04/13/2016 10:05:45 09/21/2016 [id number] healthy diet and exercise f/u in 1 year nsuthan Not available 09/21/2016 09:05:34 Reason for Referral Colonoscopy Referral for Scr eening for malignant neoplasm of colon Referring Physician: Xena Prakash SQUARE DANCE CALLER, Encounter Date: 09/12/2016 Results Created Date Observation Date Name Description Value Unit Range Abnormal Flag Note LastModifiedBy Organization Detail LastModifiedTime 10/25/19 16 10/26/2015 CBC w/ auto diff WBC 5.7 x10e3 /uL 3.4-10 .8 Not Available [facility] ([facility]) [address] [place], [address], 10/26/2015 07:22:33 10/25/19 16 10/26/2015 CBC w/ auto diff RBC 4.33 x10e6 /uL 3.77-5 .28 Not Available [facility] ([facility]) [address] [place], [address], 10/26/2015 07:22:33 10/25/19 16 10/26/2015 CBC w/ auto diff hemoglobin 13.5 g/dL 11.1-1 5.9 Not Available [facility] ([facility]) [address] [place], [address], 10/26/2015 07:22:33 10/25/19 16 10/26/2015 CBC w/ auto diff hematocrit 41.0 % 34.0-4 6.6 Not Available [facility] ([facility]) [address] [facility], [place], [address], 10/26/2015 07:22:33 10/25/19 16 10/26/2015 CBC w/ auto diff MCV 95 fL 79-97 Not Available [facility] ([facility]) [address] [facility], [place], [address], 10/26/2015 07:22:33 10/25/19 16 10/26/2015 CBC w/ auto diff MCH 31.2 pg 26.6-3 3.0 Not Available [facility] ([facility]) [address] [facility], [place], [address], 10/26/2015 07:22:33 10/25/19 16 10/26/2015 CBC w/ auto diff MCHC 32.9 g/dL 31.5-3 5.7 Not Available [facility] ([facility]) [address] [facility], [place], [address], 10/26/2015 07:22:33 10/25/19 16 10/26/2015 CBC w/ auto diff RDW 15.4 % 12.3-1 5.4 Not Available [facility] ([facility]) [address] [place], [address], 10/26/2015 07:22:33 10/25/19 16 10/26/2015 CBC w/ auto diff platelets 223 x10e3 /uL 150-37 9 Not Available [facility] ([facility]) [address] [place], [address], 10/26/2015 07:22:33 10/25/19 16 10/26/2015 CBC w/ auto diff neutrophils 65 % Not Available [facility] ([facility]) [address] [place], [address], 10/26/2015 07:22:33 10/25/19 16 10/26/2015 CBC w/ auto diff lymphs 26 % Not Available [facility] ([facility]) [address] [place], [address], 10/26/2015 07:22:33 10/25/19 16 10/26/2015 CBC w/ auto diff monocytes 7 % Not Available [facility] ([facility]) [address] [place], [address], 10/26/2015 07:22:33 10/25/19 16 10/26/2015 CBC w/ auto diff eos 2 % Not Available [facility] ([facility]) [address] [place], [address], 10/26/2015 07:22:33 10/25/19 16 10/26/2015 CBC w/ auto diff basos 0 % Not Available [facility] ([facility]) [address] [place], [address], 10/26/2015 07:22:33 10/25/19 16 10/26/2015 CBC w/ auto diff immature cells SOLAR THERMAL TECHNICIAN Not Available [facility] ([facility]) [address] [place], [address], 10/26/2015 07:22:33 10/25/19 16 10/26/2015 CBC w/ auto diff neutrophils (absolute) 3.7 x10e3 /uL 1.4-7. 0 Not Available [facility] ([facility]) [address] [place], [address], 10/26/2015 07:22:33 10/25/19 16 10/26/2015 CBC w/ auto diff lymphs (absolute) 1.5 x10e3 /uL 0.7-3. 1 Not Available [facility] ([facility]) [address] [place], [address], 10/26/2015 07:22:33 10/25/19 16 10/26/2015 CBC w/ auto diff monocytes(ab solute) 0.4 x10e3 /uL 0.1-0. 9 Not Available [facility] ([facility]) [address] [place], [address], 10/26/2015 07:22:33 10/25/19 16 10/26/2015 CBC w/ auto diff eos (absolute) 0.1 x10e3 /uL 0.0-0. 4 Not Available [facility] ([facility]) [address] [place], [address], 10/26/2015 07:22:33 10/25/19 16 10/26/2015 CBC w/ auto diff baso (absolute) 0.0 x10e3 /uL 0.0-0. 2 Not Available [facility] ([facility]) [address] [place], [address], 10/26/2015 07:22:33 10/25/19 16 10/26/2015 CBC w/ auto diff immature granulocytes 0 % Not Available [facility] ([facility]) [address] [place], [address], 10/26/2015 07:22:33 10/25/19 16 10/26/2015 CBC w/ auto diff immature grans (abs) 0.0 x10e3 /uL 0.0-0. 1 Not Available [facility] ([facility]) [address] [place], [address], 10/26/2015 07:22:33 10/25/19 16 10/26/2015 CBC w/ auto diff NRBC SOLAR THERMAL TECHNICIAN Not Available [facility] ([facility]) [address] [place], [address], 10/26/2015 07:22:33 10/25/19 16 10/26/2015 CBC w/ auto diff hematology comments: SOLAR THERMAL TECHNICIAN A HAND- WRITT EN PANEL /PROF KORI WAS RECEI TERESA FROM YOUR OFFIC E. IN ACCOR DANCE WITH THE [facility] RP ALIVIA UOUS TEST CODE POLIC Y DATED DECEMBER 2002, WE HAVE ASSIG DG CBC WITH DIFFE BELTI AL/PL MERVAT T, TEST CODE #[address] IF THIS IS NOT THE TESTI NG YOU WISHE D TO RECEI VE ON THIS SPECI MEN, PLEAS E CONTA CT THE [facility] RP CLIEN T INQUI RY/ TECHN ICAL SERVI ZEENAT DEPAR TMENT TO NESHA FY THE TEST ORDER . WE APPRE CIATE YOUR BUSIN ESS. Not Available [facility] ([facility]) [address] [facility], [place], [address], 10/26/2015 07:22:33 10/25/19 16 10/26/2015 PT/PT T, plasm a INR 1.0 0.8-1. 2 REFER ENCE INTER DARIUS IS FOR NON-A NTICO AGULA VASHTI PATIE NTS. SUGGE STED INR THERA PEUTI C RANGE FOR VITAM IN K ANTAG ONIST THERA PY: STAND ZA DOSE (MODE RATE INTEN SITY THERA PEUTI C RANGE ): 2.0 - 3.0 HIGHE R INTEN SITY THERA PEUTI C RANGE 2.5 - 3.5 Not Available [facility] ([facility]) [address] [facility], [place], [address], 10/26/2015 07:22:33 10/25/19 16 10/26/2015 PT/PT T, plasm a prothrombin time 10.4 sec 9.1-12 .0 Not Available [facility] ([facility]) [address] [facility], [place], [address], 10/26/2015 07:22:33 10/25/19 16 10/26/2015 PT/PT T, plasm a APTT 30 sec 24-33 THIS TEST HAS NOT BEEN VALID ATED FOR MONIT ORING UNFRA CTION ATED HEPAR IN THERA PY. APTT- BASED THERA PEUTI C RANGE S FOR UNFRA CTION ATED HEPAR IN THERA PY HAVE NOT BEEN ESTAB SHONA Marti. FOR GENER AL GUIDE LINES ON HEPAR IN MONIT ORING , REFER TO THE [facility] RP TREV DE LA CRUZ OF SERVI ZEENAT. Not Available [facility] ([facility]) [address] [place], [address], 10/26/2015 07:22:33 09/13/19 17 09/13/2016 pap, IG + refle x HR HPV (16+1 8) diagnosis: COMMEN T NEGAT [place] FOR INTRA EPITH ELIAL LESIO N AND CHASE GONZALEZ . CELLU CARLOS QUINONEZ ES ASSOC IATED WITH ATROP HY ARE PRESE NT. Not Available [facility] ([facility]) [address] [place], [address], 09/14/2016 14:36:53 09/13/19 17 09/13/2016 pap, IG + refle x HR HPV (16+1 8) specimen adequacy: COMMEN T SATIS FACTO RY FOR EVALU ATION . ENDOC ERVIC AL COMPO NENT MAY NOT BE DISTI NGUIS HED IN CASES OF ATROP HY. Not Available [facility] ([facility]) [address] [place], [address], 09/14/2016 14:36:53 09/13/19 17 09/13/2016 pap, IG + refle x HR HPV (16+1 8) clinician provided ICD10: SHAGUFTA Grier Z01.4 19 Not Available [facility] ([facility]) [address] [place], [address], 09/14/2016 14:36:53 09/13/19 17 09/13/2016 pap, IG + refle x HR HPV (16+1 8) performed by: SHAGUFTA CLARK TH, CYTOT GUTIERREZ Grier (ASCP ) Not Available [facility] ([facility]) [address] [place], [address], 09/14/2016 14:36:53 09/13/19 17 09/13/2016 pap, IG + refle x HR HPV (16+1 8) . . Not Available [facility] ([facility]) [address] [place], [address], 09/14/2016 14:36:53 09/13/19 17 09/13/2016 pap, IG + refle x HR HPV (16+1 8) note: COMMEN T THE PAP SMEAR IS A SCREE GREGOR TEST DESIG DG TO AID IN THE DETEC TION OF CHAD LIGNA NT AND MALIG NANT CONDI TIONS OF THE UTERI NE CERVI X. IT IS NOT A DIAGN OSTIC PROCE DURE AND SHOUL D NOT BE USED THE SOLE MEANS OF DETEC TING CERVI STEPHENIE CANCE R. BOTH FALSE -POSI TIVE AND FALSE -NEGA TIVE REPOR TS DO OCCUR . Not Available [facility] ([facility]) [address] [place], [address], 09/14/2016 14:36:53 09/13/19 17 09/13/2016 pap, IG + refle x HR HPV (16+1 8) test methodology: SHAGUFTA T THIS LIQUI D BASED THINP REP(R ) PAP TEST WAS SCREE DG WITH THE USE OF AN IMAGE GUIDE D MARIANNA M. Not Available [facility] ([facility]) [address] [facility], [place], [address], 09/14/2016 14:36:53 09/13/19 17 09/14/2016 pap, IG + refle x HR HPV (16+1 8) HPV, high-risk NEGATI VE negati ve THIS HIGH- RISK HPV TEST DETEC TS THIRT EEN HIGH- RISK TYPES (16/1 8/31/ 33/35 /39/4 5/51/ 52/56 /58/5 /68) WITHO UT DIFFE RENTI ATION . Not Available [facility] ([facility]) [address] [place], [address], 09/14/2016 14:36:53 09/22/19 17 09/22/2016 CMP, serum or plasm a glucose, serum 83 mg/dL 65-99 Not Available [facility] ([facility]) [address] [place], [address], 09/22/2016 08:31:00 09/22/19 17 09/22/2016 CMP, serum or plasm a BUN 12 mg/dL 8-27 Not Available [facility] ([facility]) [address] [facility] [place], [address], 09/22/2016 08:31:00 09/22/1909/22/2016 CMP, serum or plasm a creatinine, serum 0.64 mg/dL 0.57-1 .00 Not Available [facility] ([facility]) [address] [facility] [place], [address], 09/22/2016 08:31:00 09/22/1909/22/2016 CMP, serum or plasm a eGFR if nonafricn AM 94 mL/mi n/1.7 3 >59 Not Available [facility] ([facility]) [address] [facility] [place], [address], 09/22/2016 08:31:00 09/22/1909/22/2016 CMP, serum or plasm a eGFR if africn AM 108 mL/mi n/1.7 3 >59 Not Available [facility] ([facility]) [address] [facility] [place], [address], 09/22/2016 08:31:00 09/22/1909/22/2016 CMP, serum or plasm a BUN/creatini ne ratio 19 12-28 PLE ASE NOTE REFER ENCE INTER DARIUS QUINONEZ E Not Available [facility] ([facility]) [address] [facility] [place], [address], 09/22/2016 08:31:00 09/22/1909/22/2016 CMP, serum or plasm a sodium, serum 141 mmol/ L 134-14 4 Not Available [facility] ([facility]) [address] [facility] [place], [address], 09/22/2016 08:31:00 09/22/1909/22/2016 CMP, serum or plasm a potassium, serum 4.4 mmol/ L 3.5-5. 2 Not Available [facility] ([facility]) [address] [facility] [place], [address], 09/22/2016 08:31:00 09/22/19 17 09/22/2016 CMP, serum or plasm a chloride, serum 100 mmol/ L 96-106 Not Available [facility] ([facility]) [address] [place], [address], 09/22/2016 08:31:00 09/22/19 17 09/22/2016 CMP, serum or plasm a carbon dioxide, total 25 mmol/ L 18-29 Not Available [facility] ([facility]) [address] [place], [address], 09/22/2016 08:31:00 09/22/1909/22/2016 CMP, serum or plasm a calcium, serum 9.3 mg/dL 8.7-10 .3 Not Available [facility] ([facility]) [address] [place], [address], 09/22/2016 08:31:00 09/22/1909/22/2016 CMP, serum or plasm a protein, total, serum 6.2 g/dL 6.0-8. 5 Not Available [facility] ([facility]) [address] [place], [address], 09/22/2016 08:31:00 09/22/1909/22/2016 CMP, serum or plasm a albumin, serum 4.4 g/dL 3.6-4. 8 Not Available [facility] ([facility]) [address] [place], [address], 09/22/2016 08:31:00 09/22/1909/22/2016 CMP, serum or plasm a globulin, total 1.8 g/dL 1.5-4. 5 Not Available [facility] ([facility]) [address] [place], [address], 09/22/2016 08:31:00 09/22/1909/22/2016 CMP, serum or plasm a A/G ratio 2.4 1.2-2. 2 above high normal PLE ASE NOTE REFER ENCE INTER DARIUS QUINONEZ E Not Available [facility] ([facility]) [address] [place], [address], 09/22/2016 08:31:00 09/22/1909/22/2016 CMP, serum or plasm a bilirubin, total 0.4 mg/dL 0.0-1. 2 Not Available [facility] ([facility]) [address] [place], [address], 09/22/2016 08:31:00 09/22/1909/22/2016 CMP, serum or plasm a alkaline phosphatase, S 55 IU/L 39-117 Not Available [facility] ([facility]) [address] [facility] [place], [address], 09/22/2016 08:31:00 09/22/1909/22/2016 CMP, serum or plasm a AST (SGOT) 18 IU/L 0-40 Not Available [facility] ([facility]) [address] [place], [address], 09/22/2016 08:31:00 09/22/1909/22/2016 CMP, serum or plasm a ALT (SGPT) 12 IU/L 0-32 Not Available [facility] ([facility]) [address] [facility] [place], [address], 09/22/2016 08:31:00 09/22/1909/22/2016 CBC WBC 3.6 x10e3 /uL 3.4-10 .8 Not Available [facility] ([facility]) [address] [facility] [place], [address], 09/22/2016 08:31:00 09/22/1909/22/2016 CBC RBC 4.28 x10e6 /uL 3.77-5 .28 Not Available [facility] ([facility]) [address] [facility] [place], [address], 09/22/2016 08:31:00 09/22/1909/22/2016 CBC hemoglobin 14.1 g/dL 11.1-1 5.9 KANA IFIED BY SAMY JACKSON Not Available [facility] ([facility]) [address] [facility], [place], [address], 09/22/2016 08:31:00 09/22/1909/22/2016 CBC hematocrit 42.1 % 34.0-4 6.6 Not Available [facility] ([facility]) [address] [facility], [place], [address], 09/22/2016 08:31:00 09/22/1909/22/2016 CBC MCV 98 fL 79-97 above high normal Not Available [facility] ([facility]) [address] [facility], [place], [address], 09/22/2016 08:31:00 09/22/1909/22/2016 CBC MCH 32.9 pg 26.6-3 3.0 Not Available [facility] ([facility]) [address] [facility], [place], [address], 09/22/2016 08:31:00 09/22/1909/22/2016 CBC MCHC 33.5 g/dL 31.5-3 5.7 Not Available [facility] ([facility]) [address] [facility], [place], [address], 09/22/2016 08:31:00 09/22/1909/22/2016 CBC RDW 14.3 % 12.3-1 5.4 Not Available [facility] ([facility]) [address] [facility] [place], [address], 09/22/2016 08:31:00 09/22/1909/22/2016 CBC NRBC 0 % 0 - 0 Not Available [facility] ([facility]) [address] [facility] [place], [address], 09/22/2016 08:31:00 09/22/19 17 09/22/2016 vitam in B12 + folat e, serum or blood vitamin B12 628 pg/mL 211-94 6 Not Available [facility] ([facility]) [address] [facility], [place], [address], 09/22/2016 08:31:01 09/22/19 17 09/22/2016 vitam in B12 + folat e, serum or blood folate (folic acid), serum >20.0 NG/mL >3.0 A SERUM FOLAT E CEFERINO NTRAT ION OF LESS THAN 3.1 NG/ML IS CONSI DERED TO REPRE SENT CLINI STEPHENIE DEFIC IENCY . Not Available [facility] ([facility]) [address] [facility], [place], [address], 09/22/2016 08:31:01 08/03/19 16 08/02/2015 MAMMO , diagn ostic , bilat eral No observ ation record ed. [email or web address] Not Available 2015 13:13:52 08/23/19 16 08/23/2015 digit al mammo gram, speci al views , unila teral No observ ation record ed. [email or web address] Not Available 2015 13:20:10 08/27/19 16 05/27/2012 imagi ng/di agnos tic resul t No observ ation record ed. [email or web address] Not Available 14:56:39 08/27/19 16 06/20/2010 imagi ng/di agnos tic resul t No observ ation record ed. [email or web address] Not Available 14:57:54 08/27/19 16 06/20/2010 imagi ng/di agnos tic resul t No observ ation record ed. [email or web address] Not Available 14:59:05 08/27/19 16 05/22/2011 imagi ng/di agnos tic resul t No observ ation record ed. [email or web address] Not Available 15:00:05 08/31/19 16 08/30/2015 lorna kwong am No observ ation record ed. [email or web address] [facility] [address] [place], [address], 03/09/2016 13:22:49 09/02/19 16 08/30/2015 imagi ng/di agnos tic resul t No observ ation record ed. [email or web address] [facility] [address] [place], [address], 09/02/2015 12:21:36 03/29/20 16 02/24/2016 MRI, abdom en, w/o contr ast No observ ation record ed. [email or web address] Not Available 2015 17:17:40 03/29/20 16 03/28/2016 XR, lumba r spine No observ ation record ed. Not Available 2015 17:19:01 06/01/20 16 02/24/2016 MRI proce dure (PROC ) No observ ation record ed. [email or web address] Not Available 2015 11:14:06 Result Notes None recorded. Problems Name Problem SNOMED Code Status Onset Date Resolution Date Notes Provider Name and Address Organization Details Recorded Time Fracture of metacarp al bone 995248060 Active Homerodom Hernández null, [place] - [facility] 6 11:15:59 Closed fracture of metatars al bone 18528048 Active Homerostan Hernández null, [place] - [facility] 6 11:15:59 Pain in limb 53502449 Completed 04/13/2016 Michael Hendrix MD Attn: [address] yeh,[address] [place], [address] [facility] [place] - [facility] 6 08:48:20 Edema of lower extremit y 438101091 Active Homerodom Hernández [place], [place] [facility] 11:15:59 Hyperlip idemia 78760635 Active Homero Hernández [place] [facility] 11:15:59 Blood leukocyt e number below referenc e range 940482390 Completed 04/13/2016 Michael Hendrix MD Attn: Gu[address] yeh,[address] [place], [address], [place] - [facility] 6 09:44:54 Leukopen ia 20266396 Active Homero Hernández null, [place] - [facility] 6 11:15:59 Mammogra phy abnormal 787671896 Completed 04/13/2016 Michael Hendrix MD Attn: [address] yeh,[address] [place], [address], [place] - [facility] 6 09:44:29 Breast lump present 924842842 Completed 04/13/2016 Michael Hendrix MD Attn: Gu[address] yeh,[address] [place], [address], [place] [facility] 6 08:48:30 Allergic conjunct ivitis 655583185 Completed 04/13/2016 Michael Hendrix MD Attn: Gu[address] yeh,[address] [place], [address], [place] [facility] 6 08:48:24 Breast lump 30134759 Completed 04/13/2016 Michael Hendrix MD Attn: [address] yeh,[address] [place], [address], [place] [facility] 6 08:48:14 Cough 28905846 Completed 04/13/2016 Michael Hendrix MD Attn: Gu[address] yeh,[address] [place], [address], [place] [facility] 6 08:48:04 Carcinom a of breast 909254138 Active Stage I A grade 3 invasive ductal CA Left breast cancer-ER /AL -neg, HER-2/saba -neg s/p TC chemother apy and radiation therapy Michael Hendrix MD Attn: Gu[address] yeh,[address] [place], [address], [place] [facility] 6 09:57:16 Low back pain 337036626 Active 2015 with radiculop athy -seeing ortho at [place] s/p laminecto my 1996 Michael Hendrix MD Attn: Accountin g,[address] [facility], [place], [address], [facility] 6 10:00:31 Problem Notes None recorded. Procedures Surgical History Date Name Laterality Status Provider Name and Address Organization Details Recorded Time 09/01/19 17 Most Recent Mammogram completed Adriane Kunz RN [facility] 09/12/2016 08:54:21 09/01/19 17 Breast Biopsy completed Adriane Kunz RN [facility] 09/12/2016 08:55:30 09/16/19 16 Breast Biopsy completed Adriane Kunz RN [facility] 09/12/2016 08:56:10 05/08/20 12 Date of Last Pap Smear completed Xena Prakash [facility] 08/27/2015 09:24:30 06/18/19 05 Colonoscopy with biopsy completed Michael Hendrix MD Attn: Accounting,[address] [facility], [place], [address], [facility] 04/13/2016 08:55:10 Chemotherapy drug completed Adriane Kunz RN [facility] 09/12/2016 08:56:52 Radiation treatment aid(s) completed Adriane Kunz RN [facility] 09/12/2016 08:57:22 Caesarean Section completed Betina Mendoza [facility] 08/27/2015 09:01:32 Other completed Betina Mendoza [facility] 08/27/2015 09:01:32 Imaging Results None recorded. Procedure Notes None recorded. Medical Equipment None Reported. Allergies No known drug allergies Medications Name Sig Start Date Stop Date Status Note LastModified by Organization Details LastModified Time amoxicillin 500 mg capsule active Not Available Not Available Not Available azelastine 0.05 % eye drops INSTILL 1 DROP INTO AFFECTED EYE(S) BY OPHTHALMI C ROUTE 2 TIMES PER DAY 09/12 completed Not Available Not Available Not Available atorvastati n 20 mg tablet Take 1 tablet every day by oral route. 04/13 completed Not Available Not Available Not Available desoximetas one 0.25 % topical cream 04/13 completed Not Available Not Available Not Available B Complex 1 tablet Take 1 tablet every day by oral route. active Not Available Not Available No t Available ciprofloxac in 750 mg tablet 04/13 completed Not Available Not Available Not Available cetirizine 10 mg tablet Take 1 tablet every day by oral route. 09/12 completed Not Available Not Available Not Available atorvastati n 10 mg tablet Take 1 tablet every day by oral route. active Not Available Not Available No t Available azithromyci n 250 mg tablet TAKE 2 TABLETS (500 MG) BY ORAL ROUTE ONCE DAILY FOR 1 DAY THEN 1 TABLET (250 MG) BY ORAL ROUTE ONCE DAILY FOR 4 DAYS 09/12 completed Not Available Not Available Not Available meloxicam 15 mg tablet 09/12 completed Not Available Not Available Not Available prochlorper azine maleate 10 mg tablet 04/13 completed Not Available Not Available Not Available triamterene 37.5 mg-hydrochl orothiazide 25 mg capsule 04/13 completed Not Available Not Available Not Available ondansetron 8 mg disintegrat ing tablet 04/13 completed Not Available Not Available Not Available lidocaine-p rilocaine 2.5 %-2.5 % topical cream 04/13 completed Not Available Not Available Not Available oxycodone-a cetaminophe n 5 mg-325 mg tablet 04/13 completed Not Available Not Available Not Available propranolol 40 mg tablet active Not Available Not Available Not Available dexamethaso ne 4 mg tablet 04/13 completed Not Available Not Available Not Available Glucosamine 500 mg tablet Take 2 tablets every day by oral route. active Not Available Not Available No t Available folic acid 1 mg tablet 04/13 completed Not Available Not Available Not Available Epitol 200 mg tablet active Not Available Not Available No t Available montelukast 10 mg tablet active Not Available Not Available Not Available Fish Oil 500 mg capsule Take 2 capsules every day by oral route. active Not Available Not Available No t Available Pneumovax-2 3 25 mcg/0.5 mL injection syringe active Not Available Not Available Not Available Crestor 5 mg tablet Take 1 tablet every day by oral route. 2014 active Not Available Not Available Not Avai lable Zostavax (PF) 19,400 unit/0.65 mL subcutaneou s suspension active Not Available Not Available N ot Available Pataday 0.2 % eye drops INSTALL 1 DROP IN EACH EYE DAILY 2016 active Not Available Not Available Not Avai lable Prevnar 13 (PF) 0.5 mL intramuscul ar syringe 04/13 completed Not Available Not Available Not Available Vitamin D3 50 mcg (2,000 unit) capsule Take 1 capsule every day by oral route. active Not Available Not Available No t Available Fluzone High-Dose (PF) 180 mcg/0.5 mL intramuscul ar syringe 04/13 completed Not Available Not Available Not Available Vitals Date Recorded Body weight Body mass index (BMI) Body height Systolic And Diastolic Provider Name and Address Organization Details Last Updated DateTime 08/27/2015 97596.950 875 g 23.6 kg/m2 162.56 cm 118/76 mm[Hg] Betina [place] [facility] 08/27/2015 09:01:32 Date Recorded Body height Body temperature Oxygen saturation Heart rate Systolic And Diastolic Provider Name and Address Organization Details Last Updated DateTime 6 162.56 cm 98 [degF] 97 % 74 /min 130/74 mm[Hg] Pat Ga MA [facility] 6 13:56:13 Date Recorded Body height Body weight Body mass index (BMI) Systolic And Diastolic Provider Name and Address Organization Details Last Updated DateTime 09/12/2016 162.56 cm 96016.39 g 23.7 kg/m2 110/72 mm[Hg] Adriane Kunz RN [facility] 09/12/2016 08:50:35 Date Recorded Body height Heart rate Respiratory rate Body temperature Body weight Body mass index (BMI) Oxygen saturation Systolic And Diastolic Provider Name and Address Organization Details Last Updated DateTime 7 162.56 cm 80 /min 16 /min 98 [degF] 18546.6 7 g 23.6 kg/m2 97 % 90/68 mm[Hg] Nabila Nugent [facility] 7 08:45:10 Date Recorded Body height Body weight Body mass index (BMI) Heart rate Respiratory rate Body temperature Oxygen saturation Systolic And Diastolic Provider Name and Address Organization Details Last Updated DateTime 6 162.56 cm 19837.1 5 g 23.5 kg/m2 77 /min 16 /min 98.5 [degF] 99 % 118/74 mm[Hg] Jennifer BoyceALLY melendez [place] - [facility] 6 08:38:41 Social History Question Answer Notes LastModified by Organizat ion Details LastModified Time Tobacco Smoking Status Never Smoker [place] null, [place] - [facility] 03/17/2015 13:55:47 Do You Have An Advance Directive? Yes [email or web address] Information not available 09/12/2016 Is Blood Transfusion Acceptable In An Emergency? Yes [email or web address] Information not available 09/12/2016 What Is Your Level Of Caffeine Consumption? Moderate 2 Cups Of Coffee Daily Information not available 03/17/2015 How Much Tobacco Do You Chew? None Information not available 08/27/2015 What Type Of Diet Are You Following? REGULAR Information not available 08/27/2015 Live Alone Or With Others? With Others Information not available 08/27/2015 How Many Children Do You Have? 1 Information not available 08/27/2015 Performs Monthly Self-breast Exam? Yes Information not available 08/27/2015 What Is Your Relationship Status? Information not available 08/27/2015 Seat Belts Used Routinely Yes Information not available 08/27/2015 Are You Sexually Active? Yes Information not available 08/27/2015 How Much Tobacco Do You Smoke? No Information not available 09/21/2016 General Stress Level Medium Information not available 08/27/2015 Do You Use Sunscreen Routinely? Yes Information not available 08/27/2015 How Many Years Have You Smoked Tobacco? 0 Information not available 09/21/2016 Sex: Unknown Functional Status Question Answer Note LastModified by Organization D etails LastModified Time What is your level of alcohol consumption? None Information not available 03/17/2015 Are you currently employed? Yes Information not available 08/27/2015 What is your exercise level? Moderate Information not available 08/27/2015 Mental Status None recorded. Family History Relationship Description Onset Age of this Age Resolved Age Notes LastModified by Organization Details LastModified Time Mother Hypercholest erolemia [email or web address] Not available 2015 13:56:13 Mother Osteoporosis Not avail able 09/09/2015 13:56:13 Daughter Epilepsy [email or web address] Not availab le 09/09/2015 13:56:13 Medical History Condition Response Other N High Blood Pressure N Breast Cancer Y Depression N Blood Clots N Lung Disease N Breast Problem N Anesthesia Complications N Headaches/Migraines N Anxiety Disorder N Muscle, Joint, or Bone Problems Y Polyps N Infertility N Acid Reflux (GERD) N Cancer N Endometriosis N High Cholesterol Y Liver Disease N Thyroid Problems N Kidney or Bladder Problems N GI Problems N Acne N Eating Disorder N Anemia N Diabetes N Ovarian Cancer N Blood Transfusions N Seizures/Epilepsy Y Abuse/Domestic Violence N Asthma N Hepatitis N Heart Disease N Pre-Eclampsia N Osteoporosis N Gynecological History Statement/Question Response On BCP's at Conception? N STIs/STDs N HPV Vaccine N Current Control Method Menopause Most Recent Mammogram 08/31/2016 Age at First Child 37 If Post Menopausal, Age at Menopause 50 Sexually Active? Y Date of Last Pap Smear 05/08/2012 Sexual Problems? N LMP Obstetrics History GPAL:G 2 P 1 0 1 1 Type Value Multiple Births 0 Full Term 1 Induced 0 Spontaneous 1 Premature 0 Living 1 Ectopics 0 Total 2 Immunizations Vaccine Type Date Status Note Provider Nam e and Address Organization Details Recorded Time zoster live 4 completed Homero Hernández null, [place] [facility] 09/09/2015 14:23:30 Influenza, high-dose, trivalent, PF 6 completed Destiny Tirado RN null, [facility] 03/22/2016 09:51:39 Pneumococcal conjugate PCV 13 6 completed Jennifer Bolivar MA null, [place] 04/13/2016 08:42:28 Tdap 8 completed Malissa Alvarado [place], [place] 04/13/2016 10:29:45 pneumococcal polysaccharide PPV23 6 completed DAYAN Gil[place], [facility] 06/14/2016 16:41:52 Influenza, split virus, quadrivalent, preservative 7 completed DAYAN [place], [facility] 04/26/2017 13:14:17 Past Encounters Encounter ID Performer Location Encounter Start Date Encounter Closed Date Diagnosis/Indication Diagnosis SNOMED-CT Code Diagnosis ICD10 Code Diagnosis IMO Codes Diagnosis Note [id number] Emil Keysmonserrat, DPM [facility] [address] [place] [address] 08/11/2014 10:05:07 08/11/2014 14:58:22 Closed fracture of metatarsal bone 95982907 Pain in limb 42215238 [id number] MD Ching Avaloshalto (Adult Med) [address] [place] [address] 03/17/2015 13:41:24 03/17/2015 14:56:24 Hyperlipidemia 96349580 Patient wants to change the Atorvastat in to Crestor because Atorvastat in is expensive. Will start Crestor 5 mg po daily. Repeat the lipid panel in 2 months. Leukopenia 35708084 Last c bc showed normal WBC count. Repeat the CBC in 2 months. [id number] MD Ching Carvajalhalto ([employer]) [address] [place] [address] 08/27/2015 08:41:49 08/27/2015 09:55:32 Gynecologic examination 24487641 Z01.411 Normal female exam except left breast lump originally found by the patient. She had fasting blood work done 05/2015. She declines STD testing. Breast lump present 1621 37480 N63 Pt. had mammogram and ultrasond of left breast. She has a suspicious mass with a satellite lesion and microcalci fications in the left breast. She is schduled for an end-block resection on 09/16/[address] Liu at [facility]. [id number] MD Sha Avalos (Adult Med) [address] [place] [address] 09/09/2015 13:52:20 09/10/2015 15:14:29 Hyperlipidemia 82151635 E78.5 Continue Atorvastat in 10 mg po daily. Last Lipid panel showed LDL 78 and HDL 89 Breast lump 46562803 N63 Left Brest mass. Patient will go for lumpectomy and sentinel lymph node biopsy. [id number] MD Sha Manning (Adult Med) [address] [place] [address] 04/13/2016 08:34:01 04/13/2016 10:22:59 Low back pain 857267675 M54.5 with radiculopa thy s/p laminectom y 1996pt is seeing ortho and receiving steroid injection pt is on Mobic prn Hyperlipidemia 68850494 E78.5 off of statin for months check labs Dizziness 171289811 R42 had evaluation in the past with ekg/echo/c t head/ tilt table which were benign per pt Discussed about antihistam ine causing dizziness -trial of discontinu ation of Zyrtec for 2 wks Vitamin D deficiency 347 62248 E55.9 [id number] MD Sha Carvajal ([employer]) [address] [place] [address] 09/12/2016 08:37:08 09/14/2016 15:18:10 Gynecologic examination 51385495 Z01.419 Last pap done 05/08/12 was negative with negative hr-HPV. Pt. will be due for pap prior to next annual exam. Pap done today. History of malignant neoplasm of breast 139269575 Z85.3 Pt. completed lumpectomy , chemo, and radiation of the left breast in Feb. She had a calcium deposit on follow-up mammogram and underwent a needle biopsy that was benign and clip placement. Screening for malignant neoplasm of colon 608077546 Z12.11 Last was 2011. Pt. saw Dr. Montoya at [facility]. Dimpling o f surface of breast 265861274 N64.59 Pt. with h/o left breast cancer s/p lumpectomy and benign needle biopsy with clip placement. Now with dimpling of the skin in the same area. Pt. is concerned. Imaging ordered. [id number] MD Sha Manning (Adult Med) [address] [place] [address] 09/21/2016 08:31:44 09/21/2016 12:17:57 Hyperlipidemia 06469662 E78.5 diet and exercise off of statin Dizziness 840004157 R42 -improving had evaluation in the past with ekg/echo/c t head/ tilt table which were benign per pt Low back pain 053560677 M54.5 with radiculopa thy s/p laminectom y 1996pt was seeing ortho and received steroid injectionc ontinue back muscle exercises Carcinoma of breast 2548 48284 C50.919 s/p chemoradia tion Recently had breast biopsy for a lump and it was benign Health Concerns Section Related Observation LastModified by Organization Detai ls LastModified Time None Recorded Concern Status LastModified by Organization Details LastModified Time None Recorded Advance Directives Directive Y: Payers Insurance Date Sequence Insurance Name Policy Number Policy Haney Covered Member ID Haney Member ID Guarantor Name 09/18/2016 1 [facility] (O) [id number] Hari Grier [employer] [id number] Hari Grier [employer] Notes Date Note Type Note Provider Name and Address Organization Details Recorded Time 6 text/html Annual GYNReported by PatientHistoryFor history, patient reportsno gynecologic complaints.Genitourinary symptomsFor menstrual cycle, patient reportsnormal menses. For urinary symptoms, patient reportsno hematuriaandno incontinence. For vulva, patient reportsno genital lesion. For vagina, patient reportsnormal vaginal discharge.Breast symptomsFor breast, patient reportsno breast pain,no breast lump, andno nipple discharge.ContraceptionFor current contraception, (menopause).Endocrine symptomsFor sexual complaints, patient reportsno sexual complaints,no pain during intercourse, andnormal libido. For menopausal symptoms, patient reportsno menopausal symptomsandnormal vaginal lubrication.Psychological symptomsFor psychological symptoms, patient reportsno depression,no anxiety, andno pmdd.Preventative measuresFor preventive measures, patient reportsencourage self breast examination,encourage regular exercise,encourage no tobacco use,encourage regular mammograms starting age 40,mammogram performed within the past year, andup to date on colonoscopy screening (last was 2011, good for 10 years). REUBEN [place] [facility] 08/27/2015 09:33:34 6 text/html HyperlipidemiaReported by PatientHPIFor type of hyperlipidemia, patient reportscombined. For duration, patient reportschronic. For control, patient reportsat goal. For compliance, patient reportscompliant,compliant with diet, andexercises. For complications, patient reportsno coronary artery disease. REUBEN Gann [facility] 09/09/2015 16:15:31 6 text/html DizzinessReported by PatientHPIFor severity, patient reportssome effect on daily activities. For context, patient reportsallergies (pt is on zyrtec)but reportsnon-smoker. For quality, patient reportslightheadedness. For onset/timing, patient reportsactual date of onset: (chronic for years). For aggravating factors, patient reportspositional change. For associated symptoms, patient reportsno blurred vision,no earache,no nausea,no vomiting,no weak limbs, andno history of diabetes. For prior treatments, patient reportsmeclizine. For prior tests, (ekg/echo/ct head /tilt table test).pt is here to establish ( pt of ) Back PainReported by PatientHPIFor location, patient reportspain radiating to the legs(lumbar spine). For quality, patient reportsdull. For severity, patient reportsmoderate (5-7). For associated symptoms, patient reportsnumbness of the legs/feetbut reportsno fever,no weak limbs, andno incontinence. For duration, patient reportschronic. For onset/timing, patient reportsrecurrent episode. For context, patient reportsprior back problems (s/p laminectomy 1996),used medications for back pain, andhad evaluations by back specialist(pt is seeing ortho and receiving injection). Michael Hendrix MD Attn: Accounting,[address] [place] [address], [phone], [place] - [facility] 04/13/2016 10:33:24 7 text/html Annual GYNReported by PatientGenitourinary symptomsFor menstrual cycle, patient reportsnormal menses. For urinary symptoms, patient reportsno hematuriaandno incontinence. For vulva, patient reportsno genital lesion. For vagina, patient reportsnormal vaginal discharge.Breast symptomsFor breast, patient reportsno breast pain,no breast lump, andno nipple discharge.ContraceptionFor current contraception, (menopause).Endocrine symptomsFor sexual complaints, patient reportsno sexual complaints,no pain during intercourse, andnormal libido. For menopausal symptoms, patient reportsno menopausal symptomsandnormal vaginal lubrication.Psychological symptomsFor psychological symptoms, patient reportsno depression,no anxiety, andno pmdd.Preventative measuresFor preventive measures, patient reportsencourage self breast examination,encourage regular exercise,encourage no tobacco use,encourage regular mammograms starting age 40,mammogram performed within the past year, andneeds to schedule colonoscopy. Xena Larry blank, [facility] 09/12/2016 17:44:39 7 text/html HyperlipidemiaReported by PatientHPIFor duration, patient reportschronic. For current therapy, patient reportscurrently taking: (none). For compliance, patient reportscompliant with dietandexercises. For complications, patient reportsno coronary artery disease,no peripheral artery disease, andno cardiovascular disease. For control, (with diet and exercise). Back PainReported by PatientHPIFor location, patient reportspain radiating to the legs(lumbar spine). For severity, patient reportsmild (1-4)but reportsimproving. For associated symptoms, patient reportsnumbness of the legs/feetbut reportsno fever,no weak limbs, andno incontinence. For duration, patient reportschronic. For onset/timing, patient reportsrecurrent episode. For context, patient reportsprior back problems (s/p laminectomy 1996),used medications for back pain, andhad evaluations by back specialist(pt was seeing ortho and received injection. pt is doing back muscle exercises.). Michael Hendrix MD Attn: Accounting,[address] [place] [address], [phone], [facility] 09/21/2016 11:40:30 OBGyn Episode Ob Episode Information Episode Created Date Number of Fetuses Patient Bloodtype Patient rh Status Prepregnancy Weight lbs Domestic Partner Domestic Partner Phone Father Name Cook Helper Vegetable Status 08/27/19 16 1 CLOSED Fetus Data First Name Last Name Admitted to NICU Weight (g) Sex Living Outcome Pediatric Complications Fetus ID Race Codes Race Delivery Type 3430.28 95 F Full Term [id number] Jatinder Calculation Initial Jatinder Date Initial Exam Date Initial Exam Provider Initial Ultrasound Date Last Menstrual Period Date Ultra Sound Weeks Gestation 0 Eighteen To Twenty Week Jatinder Update Ultra Sound Date Fundal Height At Umbil Quickening Date Ultra Sound Latest Weeks Gestation Final Jatinder Confirmed By Final Jatinder Confirmed Date Final Jatinder Date Ultra Sound Latest Days Gestation 0 0 Menstrual History Last Menstrual Date Menses Monthly On Bcp Conception Prior Menses Frequency Hcg Plus Date Menarche Onset Age Delivery Information Delivery Date Delivery Type Labor Anesthesia Weeks Gestation Incision Type Labor Labor Length Hrs Delivered By Post Complications Tubal Sterilization Discharge Date Comments 9 Discharge Information Feeding Method Contraceptive Method Maternal HG B and HCT Levels Ob Episode Information Episode Created Date Number of Fetuses Patient Bloodtype Patient rh Status Prepregnancy Weight lbs Domestic Partner Domestic Partner Phone Father Name Cook Helper Vegetable Status 08/27/19 16 1 CLOSED Fetus Data First Name Last Name Admitted to NICU Weight (g) Sex Living Outcome Pediatric Complications Fetus ID Race Codes Race Delivery Type , Spontane ous [id number] Jatinder Calculation Initial Jatinder Date Initial Exam Date Initial Exam Provider Initial Ultrasound Date Last Menstrual Period Date Ultra Sound Weeks Gestation 0 Eighteen To Twenty Week Jatinder Update Ultra Sound Date Fundal Height At Umbil Quickening Date Ultra Sound Latest Weeks Gestation Final Jatinder Confirmed By Final Jatinder Confirmed Date Final Jatinder Date Ultra Sound Latest Days Gestation 0 0 Menstrual History Last Menstrual Date Menses Monthly On Bcp Conception Prior Menses Frequency Hcg Plus Date Menarche Onset Age Delivery Information Delivery Date Delivery Type Labor Anesthesia Weeks Gestation Incision Type Labor Labor Length Hrs Delivered By Post Complications Tubal Sterilization Discharge Date Comments 7 Discharge Information Feeding Method Contraceptive Method Maternal HG B and HCT Levels
--- OUTSIDE RECORDS SUMMARY | 2025-05-20 16:28 | XMS_ITS ---
Author Organization [facility] Address [address] [address] Care Team Providers Care Sap Technical Developer Name Role Phone Jeffry Horton MD Primary Care Provider [phone] Ligia Larsen MD Unavailable AftJennie MD PhD Unavailable [phone] Donna Moser PhD Unavailable [phone] Nae Hunt INTERIOR DESIGN PROFESSOR Unavailable [phone] Trino Loza MD Unavailable [phone] Danika Elizondo MD PhD Unavailable [phone] Active Problems Patient Care Coordination No te Formatting of this note migh t be different from the original. This is a 74 year old female presenting to us at the request of Dr. 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 She has a medical history significant for hypercholesteremia, DDD, spinal stenosis, LEONEL on CPAP, GERD, glaucoma. She has a medical history significant for stage I breast cancer and is status post lumpectomy followed by adjuvant radiation and TC x4 in 2015. She underwent a chest CT on 01/13/2025 to further evaluate symptoms of hemoptysis. This showed a partially calcified infiltrative soft tissue mass in the right anterior mediastinum. She underwent a pulmonary function test and a 6 minute walk on 03/02/2025. She was able to ambulate 1275 ft and was able to maintain an SpO2 greater than 90% during the 6 minutes of walking. Her FEV1 is 87% of predicted, her DLCO is 88% of predicted. She then underwent a PET scan on 03/27/2025 that showed a markedly avid heterogeneous mass in the anterior mediastinum abutting the aortic wall. She underwent a MRA of the chest on 03/28/2025 that showed a right anterior mediastinum mass with encasement of the superior vena cava. She underwent a CT-guided biopsy on 04/22/2025 and surgical pathology was consistent with a thymic carcinoma. She underwent a brain MRI on 05/13/2025. This was negative for intracranial metastasis. She is here for further surgical evaluation and discussion. Problem Noted Date Diagnosed Date Thymic carcinoma 05/05/2025 Cervical spondylosis 04/24/2025 Bronchiectasis without complication 03/25/2025 Assessment & Plan (04/20/2025 2:49 PM CORPORATE BOND TRADER): Incidental finding on CT imaging. Managing without medications. 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 Right posterior capsular opacification Glaucoma suspect of both eyes 01/07/2025 Pseudophakia of right eye 06/04/2024 Overview (06/04/2024): 06/04/2024- Extraction Cataract - Phacoemulsification And Lens Implant - Right MX60E of power 22.0D AIM: PLANO Assessment & Plan (06/20/2024 9:18 AM CORPORATE BOND TRADER): Status-post Extraction Cataract - Phacoemulsification And Lens Implant - Right 06/04/2024- aim plano Best corrected vision is much improved and the patient is pleased with results. The eye is well-healed with no evidence of infection. Plan discontinue ocuflox and taper prednisione TID (3) x 1 week, BID (2) x 1 week , then daily x 1week, then discontinue . Call if any inflammation increases or other symptoms worsen or occur. Glasses prescription was offered/given for use as needed. The patient was instructed to contact us if any new concerns occur with this eye. Assessment & Plan (06/04/2024 11:17 AM CORPORATE BOND TRADER): Post op day 1s/p Extraction Cataract - Phacoemulsification And Lens Implant - Right 06/04/2024 MX60E of power 22.0D AIM: PLANO No complaints; Doing well Use ofloxacin and prednisolone to operative eye QID; ok to stop antibiotic drop after 1 week Eye shield at bedtime, glasses or shield during the day PO instructions given RTC as scheduled, earlier if any complaints or concerns Hemoptysis 05/21/2024 Spondylosis of cervical shellie on without myelopathy or radiculopathy 02/27/2024 Assessment & Plan (03/18/2024 11:42 AM CDT): Activity as tolerated. S/p epidural injection 4 weeks ago without much change Other secondary scoliosis, lumbar region 024 Small intestinal bacterial overgrowth (SIBO) Gastroesophageal reflux disease 08/25/2022 Assessment & Plan (05/01/2025 12:23 PM CORPORATE BOND TRADER): 1. Chronic, well controlled 2. Discussed how use of her CPAP can help control her reflux 3. She will try tapering off of the pantoprazole Assessment & Plan (02/14/2025 10:15 AM CDT): Suspect recurrent dyspeptic symptoms versus GERD. Start pantoprazole 20 mg daily. Cervical stenosis of spine 04/06/2022 Overview (02/14/2025): Last MRI 09/2023 C5/6 impingement without signal change Assessment & Plan (02/14/2025 10:14 AM CDT): Last MRI 09/2023 C5/6 impingement without signal change; managing with Celebrex and gabapentin. Cervical radiculopathy 04/06/2022 LEONEL on CPAP 03/12/2022 Assessment & Plan (05/01/2025 12:23 PM CORPORATE BOND TRADER): - Chronic, well-controlled - The patient is compliant with positive airway pressure (PAP) therapy and is benefiting from its use. Recommend patient to continue therapy and to maintain compliance - She will continue nightly gabapentin - CPAP usage was monitored. Continue CPAP at current settings. - The humidifier is being used nightly. There are no issues with the mask. - Established a Correct Diagnosis of Obstructive Sleep Apnea Using Objective Tools - Assessed and educated patient on co-morbidities associated with LEONEL including hypertension, stroke, myocardial infarction, decreased daytime alertness, and motor vehicle accidents. - The patient was advised to monitor blood pressure and, if elevated, to contact her PCP for management. - Advised patient to use nasal saline washes, flonase and zrytec to help with nasal congestion symptoms. - Discussed importance of exercise to prevent further weight gain. - The patient was encouraged to contact either her home health company or the [facility] should any problems occur with the CPAP equipment in the near future. - A follow-up appointment will be made approximately 12 months from now for re-evaluation of her obstructive sleep apnea and use of CPAP. Orders: PAP Machine Replacement Supplies Assessment & Plan (10/02/2023 1:54 PM CDT): Continue with CPAP; using nightly with benefit. Assessment & Plan (03/16/2022 12:20 PM CDT): New diagnosis. Awaiting CPAP device. Assessment & Plan (03/15/2022 3:42 PM CDT): 1. Chronic, Poorly-controlled 2. Reviewed sleep study results 3. Discussed treatment options 4. Patient decided on CPAP therapy 5. Will place order Spinal stenosis of lumbar region with radiculopa thy 07/02/2020 Overview (07/02/2020): Added automatically from request for surgery [id number] Assessment & Plan (02/14/2025 10:15 AM CDT): Last MRI 09/2023 C5/6 impingement without signal change; managing with Celebrex and gabapentin. Assessment & Plan (09/16/2024 8:41 PM CDT): Managed with generic Celebrex and gabapentin. Increase gabapentin from 300 mg daily to 300 mg b.i.d.. Assessment & Plan (03/18/2024 11:42 AM CDT): Managed with generic Celebrex and gabapentin Assessment & Plan (10/08/2023 5:26 PM CDT): Worsening lumbar spinal stenosis radiculopathy. Pt had discussions with close friends and family, she will likely defer surgery for now. She has travel planned for the end of summer and based on her activity level, she is willing to continue monitoring for now. Due to nighttime symptoms, will add gabapentin 100 mg nightly. Assessment & Plan (10/02/2023 1:55 PM CDT): Planning for major spinal surgery next month. Patient desires to be more active and still travel continue with Celebrex. Assessment & Plan (04/03/2023 12:32 PM CDT): Status post physical therapy Assessment & Plan (03/16/2022 12:20 PM CDT): Activity as tolerated. DDD (degenerative disc disease), lumbar 03/06/20 Encounter for follow-up surveillance of breast c ancer 09/10/2018 Pure hypercholesterolemia 03/06/2018 Assessment & Plan (04/20/2025 2:53 PM CORPORATE BOND TRADER): Diet-controlled hyperlipidemia. Target LDL less than 130. Check CMP and FLP. Assessment & Plan (09/16/2024 8:41 PM CDT): Diet-controlled hyperlipidemia. Target LDL less than 130. Assessment & Plan (03/18/2024 11:41 AM CDT): Diet-controlled hyperlipidemia. Target LDL less than 130. Check FLP. Assessment & Plan (04/03/2023 12:32 PM CDT): Target LDL less than 100. Continue current diet and exercise. Check FLP. Assessment & Plan (03/16/2022 12:20 PM CDT): Target LDL less than 130. Continue current diet and exercise. Check CMP and FLP. Combined forms of age-related cataract of left e ghislaine 10/03/2017 Assessment & Plan (06/20/2024 9:18 AM CORPORATE BOND TRADER): BAT to visually sig but no issues with ADL. Angles ok OK to monitor prior to considering cataract extraction (CE) left eye (OS). Assessment & Plan (02/21/2024 3:32 PM CDT): Patient complains of significant symptoms and problems with activities of daily living due to visually significant disease. R/B/A of cataract surgery discussed with the patient including bleeding, infection, chronic inflammation, need for glasses and/or second surgery, loss of vision, loss of eye, and even very rarely, . Patient's questions were answered and wants to proceed with cataract extraction with intraocular lens implant. Pamphlet given and plans were made to schedule this elective surgery. Recommend phaco/intraocular lens (IOL) OD. Pre-op drops: ofloxacin. Post op drops: Prednisiolone Pre-op pre-operative testing needed: Ascan/automated topography/manual or auto K's. Aim: plano, consider toric if needed Notes: 30/ None Out of contact prior to testing Note monovision right eye (OD) distance should alleviate narrow angles Assessment & Plan (07/05/2023 2:31 PM CORPORATE BOND TRADER): Not visually significant. Do not recommend surgery at this time. Continue to monitor. Patient to call if problems with activities of daily living. Brochure offered/given. Likes monovision ctl left eye (OS)>OD Assessment & Plan (04/05/2023 2:31 PM CDT): Not visually significant. Do not recommend surgery at this time. Continue to monitor. Patient to call if problems with activities of daily living. Brochure offered/given. Likes monovision ctl left eye (OS)>OD Assessment & Plan (09/14/2021 11:05 AM CDT): Not visually significant. Do not recommend surgery at this time. Continue to monitor. Patient to call if problems with activities of daily living. Brochure offered/given. left eye (OS)>OD Assessment & Plan (05/20/2021 10:32 AM CORPORATE BOND TRADER): Not visually significant. Do not recommend surgery at this time. Continue to monitor. Patient to call if problems with activities of daily living. Brochure offered/given. left eye (OS)>OD Assessment & Plan (05/19/2020 3:11 PM CORPORATE BOND TRADER): Not visually significant. Do not recommend surgery at this time. Continue to monitor. Patient to call if problems with activities of daily living. Brochure offered/given. History of breast cancer 08/14/2016 Assessment & Plan (10/02/2023 1:53 PM CDT): Diagnosis and treatment 2015. No recurrence. Assessment & Plan (03/16/2022 12:19 PM CDT): Followed by Medical Oncology. History of malignant neoplasm of breast 08/14/19 17 Assessment & Plan (03/16/2022 12:20 PM CDT): Followed by oncology. History of spinal surgery 03/28/2016 Lumbar radiculopathy 03/28/2016 Current Treatment and Therapy Plans No current plan information found. Past Treatment and Therapy Plans No past plan information found. Lifetime Dose Tracking * Chemical Lifetime Dose Automatic Entry Manual Entr y Fluoro Time 2.418 minutes 2.418 minutes 0 minutes Air kerma at the reference point (Ka,r) 13.065 mGy 1 3.065 mGy 0 mGy DLP 1,622 mGycm 1,622 mGycm 0 mGycm Resolved Problems Problem Noted Date Diagnosed Date Resolved Date Allergic conjunctivitis 05/21/2024 07/2 08/2024 Breast lump 05/21/2024 02/14/2025 Closed fracture of metatarsal bone 05/21/2024 02/14/2025 Edema of lower extremity 05/21/2024 Fracture of metacarpal bone 05/21/2024 02/14/2025 Hyperlipidemia 05/21/2024 02/14/2025 Leukopenia 05/21/2024 02/14/2025 Pain in limb 05/21/2024 02/14/2025 Combined forms of age-relate d cataract of right eye 04/09/2024 06/04/2024 Abdominal bloating 03/01/2023 Colon cancer screening 03/01/202302/14 Asthenopia of both eyes 05/20/202112/17 Assessment & Plan (07/05/2023 2:31 PM CORPORATE BOND TRADER): Has always been hyperopic No longer wearing CTL MRx is better than +1.25 OTC, but will try various OTC first. Did not like bifocals in the past. Assessment & Plan (04/05/2023 1:43 PM CDT): Has always been hyperopic No longer wearing CTL MRx is better than +1.25 OTC, but will try various OTC first. Did not like bifocals in the past. Assessment & Plan (09/14/2021 11:05 AM CDT): Has always been hyperopic No longer wearing CTL MRx is better than +1.25 OTC, but will try various OTC first. Did not like bifocals in the past. Assessment & Plan (05/20/2021 10:38 AM CORPORATE BOND TRADER): Has always been hyperopic No longer wearing CTL MRx is better than +1.25 OTC, but will try various OTC first. Did not like bifocals in the past. 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 No need to garrido into cataract extraction (CE) left eye (OS) yet. Will monitor. Cotninue timolol BID Assessment & Plan (06/05/2024 8:13 AM CORPORATE BOND TRADER): On timolol both eyes (OU) chronically- will continue Now open angles right eye (OD) Will monitor. Assessment & Plan (05/21/2024 8:56 PM CORPORATE BOND TRADER): Follows with Dr. Mendoza, here for second opinion about cataract extraction. No family history of glaucoma. Tmax 24/. Drop intolerances: latanoprost (dryness, irritation). IOP 20/18 on timolol BID- initiated in Sept, tolerating well Gonioscopy with 270 degrees appositional closure both eyes (OU) Avg CCT OCT RNFL with focal superior thinning OD - noted on prior exams HVF with nonspecific but very early corresponding changes OD, full OS Discussed options of management: Continue observation/tx with timolol Doubt benefit of laser peripheral iridotomy (LPI) with lens rise Cataract extraction (CE)- more definitive management, but signs of minimal RNFL changes Recommend cataract extraction (CE)/intraocular lens (IOL)- pt to proceed with surgery. Dr. Mendoza has discussed R/B/A Assessment & Plan (02/21/2024 3:28 PM CDT): History of CDR asymmetry & large optic nerves ([place] in [place]). No FHx, normal pach Has been latanoprost both eyes (OU) at bedtime (qHS). But now unable to tolerate it and has not been taking it. Intraocular pressure (IOP) elevated right eye (OD)>left eye (OS) and definitely with higher intraocular pressure (IOP) right eye (OD)>left eye (OS). Would recommend cataract extraction (CE) right eye (right eye (OD). Would not recommend MIGS. Warned may still need drops after cataract extraction (CE). Trial of timolol BID both eyes (OU). Assessment & Plan (07/05/2023 3:51 PM CORPORATE BOND TRADER): History of CDR asymmetry & large optic nerves ([place] in [place]). No FHx, normal pach Has been latanoprost both eyes (OU) at bedtime (qHS). Rarely misses Right eye (OD) with slight suggestion of changes right eye (OD)>OS, but stable since Mar 2023. Good response to drops but note some dry eye sx. Consider SLT OD. Narrow on exam but with deniz, suspect will have areas for treatment Assessment & Plan (04/05/2023 2:30 PM CDT): History of CDR asymmetry & large optic nerves ([place] in [place]). No FHx, normal pach Reviewed OCT and HVF today. right eye (OD) with slight suggestion of changes right eye (OD)>OS, but no glaucomatous changes. Some narrowing of angles. Recommend latanoprost both eyes (both eyes (OU) at bedtime (qHS). Assessment & Plan (09/14/2021 12:22 PM CDT): History of CDR asymmetry & large optic nerves ([place]ika in [place]). No FHx, normal pach Reviewed OCT and HVF today. right eye (OD) with slight suggestion of changes right eye (OD)>OS, but no glaucomatous changes. Assessment & Plan (05/20/2021 10:35 AM CORPORATE BOND TRADER): History of CDR asymmetry. intraocular pressure (IOP) WNL, normal testing and pachs. First time with higher intraocular pressure (IOP). No FHx. Plan baseline testing- HVF and ONOCT Assessment & Plan (05/19/2020 3:07 PM CORPORATE BOND TRADER): History of CDR asymmetry. intraocular pressure (IOP) WNL, normal testing and pachs. Will continue to monitor. Assessment & Plan (10/01/2018 10:11 AM CDT): Glaucoma suspect based on CDR asymmetry: IOP within normal limits, RNFL normal, visual field and pachs today: Trichiasis 10/03/2017 01/07/2025 Low back pain 04/13/2016 02/14/2025 Overview (05/21/2024): with radiculopathy -seeing ortho at [place] s/p laminectomy 1996 Abnormal mammogram 08/23/2015 8 Mammogram abnormal 08/23/2015 8
--- OUTSIDE RECORDS SUMMARY | 2025-05-20 16:29 | XMS_ITS | Encounter Summary ---
Author Organization [facility] Healthcare Address [address] [place] [address] Care Team Prov[address] Care [address] Freight Brake Coupler Name Role Phone Jeffry Horton MD Primary Care Provider [phone] Ligia Larsen MD Unavailable Aft, Jennie Pack MD PhD Unavailable [phone] Donna Moser PhD Unavailable [phone] Nae Hunt TUCKING MACHINE OPERATOR Unavailable [phone] Trino Loza MD Unavailable [phone] Danika Elizondo MD PhD Unavailable [phone] Reason for Visit * Reason Onset Date Comments Scheduling Appointments 02/22/2024/ LVM for patient to call back to schedule. Encounter Details Date Type Department Care Team (Late st Contact Info) Description 02/22/2024 Telephone [facility] [address], [address] [place] [id number] Lalita Campoverde MD [address] [place] [address] Scheduling Appointments (02/21 LVM for patient to call back to schedule.) Social History Tobacco Use Types Packs/Day Years Used Date Smoking Tobacco: Never Passive Smoke Exposure: Never Smokeless Tobacco: Never Alcohol Use Standard Drinks/Week Comments No 0 (1 standard drink = 0.6 oz pur e alcohol) AUDIT-C Answer Date Recorded Q1: How often do you have a drink containing alcohol? Never 12/31/2023 Q2: How many drinks containi ng alcohol do you have on a typical day when you are drinking? Patient does not drink Q3: How often do you have si x or more drinks on one occasion? Never 12/31/2023 PHQ-2 Answer Date Recorded PHQ-2 Total Score (If total score is 3 or more points, staff should administer the PHQ-9) 0 04/03/2023 Personal Safety Answer Date Recorded Have you ever been in or are you currently in a harmful physical or emotional relationship or is someone making you feel afraid or unsafe? 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 documented as of this encounter Visit Diagnoses Not on filedocumented in this encounter Care Teams Road Freight Brake Coupler Relationship Specialty Start Date End Date Jeffry Horton MD [address] [place] [address] PCP - General Internal Medicine 11/05/17 Ligia Larsen MD [address] [place] [address] Radiation Oncologist Radiation Oncology 09/10/18 AftJennie MD PhD [address] [place] [address] Surgeon Surgical Oncology 09/10/18 Donna Moser, PhD [address] [place] [address] Nurse Practitioner Radiation Oncology 09/10/18 Nae Hunt, TUCKING MACHINE OPERATOR [address] [place] [address] Nurse Practitioner Medical Oncology 01/12/20 Trino Loza MD [address] DIV IM PULMONARY AND CCM[address] [place] [address] Referring Physician Pulmonary Disease 04/30/25 Danika Elizondo MD PhD [address] DIV IM MEDICAL ONCOLOGY, [facility] [address] [place] [address] Medical Oncologist/Servicenow Administrator Developer Medical Oncology 04/30/25 documented as of this encounter
--- OUTSIDE RECORDS SUMMARY | 2025-05-20 16:29 | XMS_ITS | Encounter Summary ---
Author Organization [facility] Address [address] [place] [address] Phone Care Team Providers Care Loadmaster Name Role Phone Jeffry Horton MD Primary Care Provider [phone] Ligia Larsen MD Unavailable Aft, Jennie Pack MD PhD Unavailable [phone] Donna Moser PhD Unavailable [phone] Nae Hunt FIREWORKS ASSEMBLY SUPERVISOR Unavailable [phone] Trino Loza MD Unavailable [phone] Danika Elizondo MD PhD Unavailable [phone] Reason for Referral * MRI/CAT/PET Scan (Routine) - Authorized Specialty Diagnoses / Procedures Referred By Alex gomez Referred To Contact Radiology Diagnoses Thymic carcinoma (HCC) Procedures CT angiogram chest with and without contrast Adonay Craig, [place] [address] [facility] [address] [place] [address] Phone: tel: fax: [address] [address] Referral ID Status Reason Start Date Expiration Date V isits Requested Visits Authorized [id number] Authorized 05/19/2025 06/18/2026 1 1 OR PRINCIPAL Encounter Details Date Type Department Care Team (Late st Contact Info) Description 05/19/2025 Orders Only [facility] Medicine Surgery [address] [facility] Floor 5 [place] [id number] Adonay Craig NP [address] [place] [address] Thymic carcinoma (HCC) (Primary Dx) Social History [...] on file Legal Sex Female 1:14 AM SENIOR PRINCIPAL Gender Identity Female 05/14/2020 6:01 PM SENIOR PRINCIPAL Sexual Orientation Straight 03/03/2019 8: 24 PM CDT 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 Not on file Not on file Not on file documented as of this encounter Functional Status * BP Location Answer Date of Assessment Author Left arm 05/19/2025 1:52 PM SENIOR PRINCIPAL Demario Lees CMA * BP Location Answer Date of Assessment Author Left arm 05/19/2025 1:52 PM Demario Stapleton CMA documented as of this encounter Plan of Treatment Scheduled Orders Name Type Priority Associated Diagnoses Orde r Schedule CT angiogram chest with and without contrast Imaging Schedule ASAF, Read ASAF (Appt Today, Awaiting Results) Thymic carcinoma (HCC) Expected: 05/20/2025, Expires: 05/19/2026 documented as of this encounter Goals Goal [...] on stairs Contact your local community or [facility] for information on exercise, fall prevention programs, or options for improving home safety. 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 documented in this encounter Care Teams Loadmaster Relationship Specialty Start Date End Date Jeffry Horton MD [address] [place] [address] DR Santos [address] [address] PCP - General Internal Medicine 11/05/17 Ligia Larsen MD [address] [facility] [address] [place] [address] Radiation Oncologist Radiation Oncology 09/10/18 Jennie Liu MD PhD [address] [facility] [address] [place] [address] Surgeon Surgical Oncology 09/10/18 Donna Moser, PhD [address] [facility] [address] [place] [address] Nurse Practitioner Radiation Oncology 09/10/18 Nae Hunt, FIREWORKS ASSEMBLY SUPERVISOR [address] [place] [address] Nurse Practitioner Medical Oncology 01/12/20 Trino Loza MD [address] [facility] DIV IM PULMONARY AND CCM, [address] [place] [address] Referring Physician Pulmonary Disease 04/30/25 Danika Elizondo MD PhD [address] [facility] DIV IM MEDICAL ONCOLOGY, [facility] 7A, 7B, [address] [place] [address] Medical Oncologist/Traffic Administrator Medical Oncology 04/30/25 documented as of this encounter
--- OUTSIDE RECORDS SUMMARY | 2025-05-20 16:29 | XMS_ITS | Encounter Summary ---
Author Organization [facility] Address [address] [place] [address] Phone Care Team Providers Care Grain Sampler Name Role Phone Jeffry Horton MD Primary Care Provider [phone] Ligia Larsen MD Unavailable Aft, Jennie Pack MD PhD Unavailable [phone] Donna Moser PhD Unavailable [phone] Nae Hunt INSPECTOR AND ADJUSTER GOLF CLUB HEAD Unavailable [phone] Trino Loza MD Unavailable [phone] Danika Elizondo MD PhD Unavailable [phone] Encounter Details Date Type Department Care Team (Late st Contact Info) Description 05/20/2025 Telephone [facility] Medicine Surgery [address] [facility] [address] [place] [address] Luca Alvarado RMA Social History Tobacco Use Types Packs/Day Years [...] on file Legal Sex Female 1:14 AM CAFE COOK Gender Identity Female 05/14/2020 6:01 PM CAFE COOK Sexual Orientation Straight 03/03/2019 8: 24 PM CDT 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 Pt is aware of date, time and location COOK documented in this encounter Plan of Treatment [...] on stairs Contact your local community or [facility] for information on exercise, fall prevention programs, or options for improving home safety. documented as of this encounter Visit Diagnoses Not on filedocumented in this encounter Care Teams Grain Sampler Relationship Specialty Start Date End Date Jeffry Horton MD [facility] [address] [place] [address] PCP - General Internal Medicine 11/05/17 Ligia Larsen MD [address] [place] [address] Radiation Oncologist Radiation Oncology 09/10/18 AftJennie MD PhD [address] [place] [address] Surgeon Surgical Oncology 09/10/18 Donna Moser, PhD [address] [place] [address] Nurse Practitioner Radiation Oncology 09/10/18 Nae Hunt, INSPECTOR AND ADJUSTER GOLF CLUB HEAD [address] [facility] [place] [address] Nurse Practitioner Medical Oncology 01/12/20 Trino Loza MD [address] DIV IM PULMONARY AND CCM, [address] [place] [address] Referring Physician Pulmonary Disease 04/30/25 Danika Elizondo MD PhD [address] DIV IM MEDICAL ONCOLOGY, [address], [address], [address] [place] [address] Medical Oncologist/Research Nutritionist Medical Oncology 04/30/25 documented as of this encounter
--- OUTSIDE RECORDS SUMMARY | 2025-05-20 16:29 | XMS_ITS | Encounter Summary ---
Author Organization [facility] Address [address] [place] [address] Phone Care Team Providers Care Police Guard Name Role Phone Jeffry Horton MD Primary Care Provider [phone] Ligia Larsen MD Unavailable Aft, Jennie Pack MD PhD Unavailable Donna Moser PhD Unavailable [phone] Nae Hunt PRODUCTION LEAD Unavailable [phone] Trino Loza MD Unavailable [phone] Danika Elizondo MD PhD Unavailable [phone] Encounter Details Date Type Department Care Team (Late st Contact Info) Description 10/15/[address] [facility] Medicine Gastroenterology [address] [facility] 2nd Floor [address] [place] [address] Tania Oliveira MD [address] [place] [address] Social History Tobacco Use Types Packs/Day Years Used Date Smoking Tobacco: Never Passive Smoke Exposure: Never Smokeless Tobacco: Never Alcohol Use Standard Drinks/Week Comments No 0 (1 standard drink = 0.6 oz pur e alcohol) AUDIT-C Answer Date Recorded Q1: How often do you have a drink containing alcohol? Never 03/16/2022 Q2: How many drinks containi ng alcohol do you have on a typical day when you are drinking? Patient does not drink Q3: How often do you have si x or more drinks on one occasion? 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 Not on file Not on file Not on file documented as of this encounter Plan of Treatment Not on file documented as of this encounter Visit Diagnoses Not on filedocumented in this encounter Care Teams Police Guard Relationship Specialty Start Date End Date Jeffry Horton MD [address] [place] [address] DR [address] [address] PCP - General Internal Medicine 11/05/17 Ligia Larsen MD [address] [place] [address] Radiation Oncologist Radiation Oncology 09/10/18 Jennie Liu MD PhD [address] [address] Surgeon Surgical Oncology 09/10/18 Donna Moser, PhD [address] [address] Nurse Practitioner Radiation Oncology 09/10/18 Nae Hunt PRODUCTION LEAD [address] [place] [address] Nurse Practitioner Medical Oncology 01/12/20 Trino Loza MD [address] [facility] [address] DIV IM PULMONARY AND CCM, [address] [place] [address] Referring Physician Pulmonary Disease 04/30/25 Danika Elizondo MD PhD [address] [facility] [address] DIV IM MEDICAL ONCOLOGY, [facility] [address]A, 7B, [address] [place] [address] Medical Oncologist/Hi Lo Driver Medical Oncology 04/30/25 documented as of this encounter
--- OUTSIDE RECORDS SUMMARY | 2025-05-20 16:29 | XMS_ITS | Encounter Summary ---
Author Organization [facility] Address [address] [place] [address] Care Team Providers Care Machine Learning Intern Name Role Phone Jeffry Horton MD Primary Care Provider [phone] Ligia Larsen MD Unavailable Aft, Jennie Pack MD PhD Unavailable [phone] Roman Bentley MD Unavailable [phone] Donna Moser PhD Unavailable [phone] Nea Hunt CVIR TECH Unavailable [phone] Trino Loza MD Unavailable [phone] Danika Elizondo MD PhD Unavailable [phone] Encounter Details Date Type Department Care Team (Late st Contact Info) Description 07/18/[address] 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 Job End Date 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 Not on file Not on file Not on file documented as of this encounter Plan of Treatment Not on file documented as of this encounter Visit Diagnoses Not on filedocumented in this encounter Care Teams Machine Learning Intern Relationship Specialty Start Date End Date Jeffry Horton MD [facility] [address] [place] [address] PCP - General Internal Medicine 11/05/17 Ligia Larsen MD [address] [place] [address] Radiation Oncologist Radiation Oncology 09/10/18 IvonnetJennie MD PhD [address] [facility] [address] [place] [address] Surgeon Surgical Oncology 09/10/18 Romna Bentley MD [address] [place] [address] Referring Physician Medical Oncology 09/10/18 01/11/20 Donna Moser, PhD [address] [place] [address] Nurse Practitioner Radiation Oncology 09/10/18 Nae Hunt, CVIR TECH [address] [facility] [place] [address] Nurse Practitioner Medical Oncology 01/12/20 Trino Loza MD [address] DIV IM PULMONARY AND CCM, [address] [place] [address] Referring Physician Pulmonary Disease 04/30/25 Danika Elizondo MD PhD [address] [facility] MEDICAL ONCOLOGY, [address], [address] [place] [address] Medical Oncologist/Electronic Pagination System Operator Medical Oncology 04/30/25 documented as of this encounter
--- OUTSIDE RECORDS SUMMARY | 2025-05-20 16:29 | XMS_ITS | Encounter Summary ---
Author Organization [facility] Address [address] [place] [address] Phone Care Team Providers Care Bundle Shaker Name Role Phone Jeffry Horton MD Primary Care Provider [phone] Ligia Larsen MD Unavailable Aft, Jennie Pack MD PhD Unavailable [phone] Donna Moser PhD Unavailable [phone] Nae Hunt CLAM BED LABORER Unavailable [phone] Trino Loza MD Unavailable [phone] Danika Elizondo MD PhD Unavailable [phone] Reason for Referral * Diagnostic Imaging (Routine) - Closed Specialty Diagnoses / Procedures Referred By Alex gomez Referred To Contact Diagnoses Combined form of age-related cataract, both eyes Procedures IOL Biometry - OU - Both Eyes Claire Mendoza MD Phone: tel: fax: [facility] (All Locations) Referral ID Status Reason Start Date Expiration Date Visits Re quested Visits Authorized [id number] Closed 02/21/2024 03/22/2025 1 1 Encounter Details Date Type Department Care Team (Late st Contact Info) Description 02/21/2024 Orders Only [facility] Medicine Ophthalmology 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 documented as of this encounter Procedures Procedure Name Priority Date/Time Associated Diagnosis Comments TOPOGRAPHY NON-BILLABLE - OU - BOTH EYES Routine 04/23/2024 3:54 PM BREAKER HAND Combined form of age-related cataract, both eyes documented in this encounter Results * Topography Non-Billable - OU - Both Eyes (04/23/2024 3:54 PM BREAKER HAND) Anatomical Region Laterality Modality Head Other Narrative 04/25/2024 1:05 PM BREAKER HAND Good cooperation Non-billable topography for preoperative measurements. Will review for cataract surgery us Claire Mendoza MD OPHTH MAPPING Final Result * IOL Biometry - OU - Both Eyes (04/23/2024 3:53 PM BREAKER HAND) AC IOL (OS) 2.68 CONTINUUM AC IOL (OD) 2.62 CONTINUUM White to White (OS) 11.8 mm CONTINUUM White to White (OD) 12.2 mm CONTINUUM A LENGTH (OS) 23.65 CONTINUUM A LENGTH (OD) 23.25 CONTINUUM Anatomical Region Laterality Modality Head Other Narrative 04/25/2024 1:06 PM BREAKER HAND Right Eye Axial length was 23.25. White to white was 12.2 mm. AC Depth was 2.62. Left Eye Axial length was 23.65. White to white was 11.8 mm. AC Depth was 2.68. Notes Scan reviewed. Will use intraocular lens (IOL) calculations for intraocular lens (IOL) selection for upcoming surgery. us Claire Mendoza MD OPHTH ULTRASOUND Final Result documented in this encounter Visit Diagnoses Diagnosis Combined form of age-related cataract, both eyes- Primary Combined form of age-related cataract, both eyes documented in this encounter Care Teams Bundle Shaker Relationship Specialty Start Date End Date Jeffry Horton MD [address] [facility] [place] [address] PCP - General Internal Medicine 11/05/17 Ligia Larsen MD [address] [place] [address] Radiation Oncologist Radiation Oncology 09/10/18 Jennie Liu MD PhD [address] [place] [address] Surgeon Surgical Oncology 09/10/18 Donna Moser, PhD [address] [place] [address] Nurse Practitioner Radiation Oncology 09/10/18 Nae Hunt, CLAM BED LABORER [address] [place] [address] Nurse Practitioner Medical Oncology 01/12/20 Trino Loza MD [address] DIV IM PULMONARY AND CCM, [address] [place] [address] Referring Physician Pulmonary Disease 04/30/25 Danika Elizondo MD PhD [address] DIV IM MEDICAL ONCOLOGY, [address] [place] [address] Medical Oncologist/Theoretical Physics Teacher Medical Oncology 04/30/25 documented as of this encounter
--- OUTSIDE RECORDS SUMMARY | 2025-05-20 16:29 | XMS_ITS | Clinical Summary ---
Author Organization [facility] Address [address] [address] Care Team Providers Care Wood Heel Attacher Name Role Phone Jeffry Horton MD Primary Care Provider [phone] Ligia Larsen MD Unavailable Aft, Jennie Pack MD PhD Unavailable [phone] Donna Moser PhD Unavailable [phone] Nae Hunt POTATO INSPECTOR Unavailable [phone] Trino Loza MD Unavailable [phone] Danika Elizondo MD PhD Unavailable [phone] Allergies Active Allergy Reactions Criticality Noted Date Comments Meperidine Vomiting Low 12/03/2017 Latanoprost Redness Low 05/21/2024 Medications b complex vitamins capsuleIndicati ons:SUPPLEMENT Take 1 capsule by mouth every morning Active cholecalciferol (VITAMIN D-3) 2,000 unit tabletIndicatio ns:Prevention of Vitamin D Deficiency Take 1 tablet (2,000 Units total) by mouth every morning Active tretinoin (RETIN-A) 0.05 % creamIndication s:melasma Apply 1 application (deactivated) topically nightly 0 Active docosahexaenoic acid/epa (FISH OIL ORAL)Indication s:SUPPLEMENT Take 1,000 mg by mouth every morning Active cetirizine (ZyrTEC) 10 mg tabletIndicatio ns:Seasonal Allergic Rhinitis Take 1 tablet (10 mg total) by mouth nightly Active fluticasone propionate (FLONASE) 50 mcg/actuation nasal spray Administer 2 sprays into each nostril daily 3 each 4 5 Active hydroquinone 4 % cream APPLY CREAM TOPICALLY NIGHTLY 29 g 3 5 Active gabapentin (NEURONTIN) 300 mg capsule Take 1 capsule (300 mg total) by mouth 2 (two) times a day 180 capsule 3 5 Active celecoxib (CeleBREX) 200 mg capsule TAKE 1 CAPSULE BY MOUTH ONCE DAILY NEEDED FOR PAIN 90 capsule [address] (PROTONIX) 20 mg EC tablet Take 1 tablet (20 mg total) by mouth daily 90 tablet 3 5 Active sodium chloride 3 % nebulizer solution Take 4 mL by nebulization 2 (two) times a day as needed for other (for sputum induction) 240 mL 2 5 Active Active Problems Patient Care Coordination No te [...] by adjuvant radiation and TC x4 in 2016. She underwent a chest CT on 01/13/2025 [...] 03/25/2025 Assessment & Plan (04/20/2025 2:49 PM COUNTER SALES PERSON): Incidental finding on CT imaging. Managing without medications. 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 Right posterior capsular opacification Glaucoma suspect of both eyes 01/07/2025 Pseudophakia of right eye 06/04/2024 Overview (06/04/2024): 06/04/2024- Extraction Cataract - Phacoemulsification And Lens Implant - Right [id number] of power 22.0D AIM: PLANO Assessment & Plan (06/20/2024 9:18 AM COUNTER SALES PERSON): Status-post Extraction Cataract - Phacoemulsification And Lens [...] eye. Assessment & Plan (06/04/2024 11:17 AM COUNTER SALES PERSON): Post op day 1s/p Extraction Cataract - [...] 08/25/2022 Assessment & Plan (05/01/2025 12:23 PM COUNTER SALES PERSON): 1. Chronic, well controlled 2. Discussed how [...] 03/12/2022 Assessment & Plan (05/01/2025 12:23 PM COUNTER SALES PERSON): - Chronic, well-controlled - The patient is [...] (07/02/2020): Added automatically from request for surgery [id number] Assessment & Plan (02/14/2025 10:15 AM CDT): [...] tolerated. DDD (degenerative disc disease), lumbar 03/06/20 19 Encounter for follow-up surveillance of breast c ancer 09/10/2018 Pure hypercholesterolemia 03/06/2018 Assessment & Plan (04/20/2025 2:53 PM COUNTER SALES PERSON): Diet-controlled hyperlipidemia. Target LDL less than 130. [...] forms of age-related cataract of left e ye 10/03/2017 Assessment & Plan (06/20/2024 9:18 AM COUNTER SALES PERSON): BAT to visually sig but no issues [...] angles Assessment & Plan (07/05/2023 2:31 PM COUNTER SALES PERSON): Not visually significant. Do not recommend surgery [...] (OS)>OD Assessment & Plan (05/20/2021 10:32 AM COUNTER SALES PERSON): Not visually significant. Do not recommend surgery at this time. Continue to monitor. Patient to call if problems with activities of daily living. Brochure offered/given. left eye (OS)>OD Assessment & Plan (05/19/2020 3:11 PM COUNTER SALES PERSON): Not visually significant. Do not recommend surgery [...] of spinal surgery 03/28/2016 Lumbar radiculopathy 03/28/2016 Resolved Problems Problem Noted Date Diagnosed Date Resolved Date Allergic conjunctivitis 05/21/202412/17 Breast lump 05/21/2024 02/14/2025 Closed fracture of metatarsal bone 05/21/2024 02/14/2025 Edema of lower extremity 05/21/2024 Fracture of metacarpal bone 05/21/2024 02/14/2025 Hyperlipidemia 05/21/2024 02/14/2025 Leukopenia 05/21/2024 02/14/2025 Pain in limb 05/21/2024 02/14/2025 Combined forms of age-relate d cataract of right eye 04/09/2024 06/04/2024 Abdominal bloating 03/01/2023 Colon cancer screening 03/01/202302/14 Asthenopia of both eyes 05/20/202112/17 Assessment & Plan (07/05/2023 2:31 PM COUNTER SALES PERSON): Has always been hyperopic No longer wearing [...] past. Assessment & Plan (05/20/2021 10:38 AM COUNTER SALES PERSON): Has always been hyperopic No longer wearing CTL MRx is better than +1.25 OTC, but will try various OTC first. Did not like bifocals in the past. Malignant neoplasm of upper- outer quadrant of left breast in female, estrogen receptor negative 10/30/2017 09/16/2024 Cancer Staging:Pathologic stage from 09/16/2015:Stage IB(pT1c, pN0(sn), cM0, G3, ER-, OR-, HER2-) - Signed by Donna Moser, PhD on 09/10/2018 Clinical: cN0, cM0 - Signed by Donan Moser, PhD on 09/10/2018 Madarosis of left lower eyelid 10/03/2017 05/19/2020 Primary angle closure suspect of both eyes 10/03/2017 01/07/2025 Assessment & Plan (06/20/2024 9:17 AM COUNTER SALES PERSON): Was more concerning right eye (OD) than left eye (OS) Intraocular pressure (IOP) now good both eyes (OU) on timolol and left eye (OS) does not look occludable. No need to garrido into cataract extraction (CE) left eye (OS) yet. Will monitor. Cotninue timolol BID Assessment & Plan (06/05/2024 8:13 AM COUNTER SALES PERSON): On timolol both eyes (OU) chronically- will continue Now open angles right eye (OD) Will monitor. Assessment & Plan (05/21/2024 8:56 PM COUNTER SALES PERSON): Follows with Dr. Mendoza, here for second [...] (OU). Assessment & Plan (07/05/2023 3:51 PM COUNTER SALES PERSON): History of CDR asymmetry & large optic nerves ([place] in [place]). No FHx, normal pach Has been latanoprost [...] asymmetry & large optic nerves ([place] in [place]). No FHx, normal pach Reviewed OCT and HVF today. right eye (OD) with slight suggestion of changes right eye (OD)>OS, but no glaucomatous changes. Some narrowing of angles. Recommend latanoprost both eyes (both eyes (OU) at bedtime (qHS). Assessment & Plan (09/14/2021 12:22 PM CDT): History of CDR asymmetry & large optic nerves ([place] in [place]). No FHx, normal pach Reviewed OCT and HVF today. right eye (OD) with slight suggestion of changes right eye (OD)>OS, but no glaucomatous changes. Assessment & Plan (05/20/2021 10:35 AM COUNTER SALES PERSON): History of CDR asymmetry. intraocular pressure (IOP) WNL, normal testing and pachs. First time with higher intraocular pressure (IOP). No FHx. Plan baseline testing- HVF and ONOCT Assessment & Plan (05/19/2020 3:07 PM COUNTER SALES PERSON): History of CDR asymmetry. intraocular pressure (IOP) WNL, normal testing and pachs. Will continue to monitor. Assessment & Plan (10/01/2018 10:11 AM CDT): Glaucoma suspect based on CDR asymmetry: IOP within normal limits, RNFL normal, visual field and pachs today: Trichiasis 10/03/2017 01/07/2025 Low back pain 04/13/2016 02/14/2025 Overview (05/21/2024): with radiculopathy -seeing ortho at [place] s/p laminectomy 1997 Abnormal mammogram 08/23/2015 8 Mammogram abnormal 08/23/2015 8 Encounters Date Type Department Care Team Description 05/20/2025 Telephone [facility] Medicine Surgery [address] [facility] [address] [place] [phone] Luca Alvarado RMA 05/19/2025 3:00 PM COUNTER SALES PERSON Office Visit [facility] Medicine Oncology [facility] Floor 5 [place] [phone] Danika Elizondo MD PhD 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 2:00 PM COUNTER SALES PERSON Office Visit [facility] Medicine Surgery [facility] 5 [place] [phone] Kelley Kohler MD Thymic carcinoma (HCC) (Primary Dx) 05/19/2025 Orders Only [facility] Medicine Surgery [address] [place] [address] 5 [place] [phone] Adonay Craig NP Thymic carcinoma (HCC) (Primary Dx) 05/18/2025 Orders Only [facility] Oncology [address] [place] [address] 5 [place] [phone] Danika Elizondo MD PhD Thymic carcinoma (HCC) (Primary Dx) 05/13/2025 4:16 PM COUNTER SALES PERSON - 05/13/2025 11:59 PM COUNTER SALES PERSON Hospital Encounter [facility] Radiology at [address] [address] Thymic carcinoma (HCC) Discharge Disposition: Discharge to home or self care 05/11/2025 Orders Only [facility] Radiology at [address] [address] Caty Rivera RN 05/05/2025 3:00 PM COUNTER SALES PERSON Lab [facility] - Lab Collection [address] [facility] Floor 5 [place] [address] Thymic carcinoma (HCC) 05/05/2025 1:40 PM COUNTER SALES PERSON Office Visit [facility] Oncology [address] [place] [address] 5 [place] [address] Danika Elizondo MD PhD Thymic carcinoma (HCC) (Primary Dx) 05/01/2025 11:45 AM COUNTER SALES PERSON Office Visit [facility] [place] [facility] [address] [facility] [address] [place] [phone] Maurizio Wolfe MD LEONEL on CPAP (Primary Dx); Gastroesophageal reflux disease, unspecified whether esophagitis present 04/29/2025 Orders Only [facility] Pulmonary [address] [facility] 8th [place] [address] [place] [phone] Trino Loza MD Primary thymic carcinoma (HCC) (Primary Dx) 04/24/2025 7:39 AM COUNTER SALES PERSON - 04/24/2025 11:59 PM COUNTER SALES PERSON Hospital Encounter [facility] at [address], [address] [place] [phone] Lalita Campoverde MD Cervical spondylosis Discharge Disposition: Discharge to home or self care 04/24/2025 Telephone [facility] at [address], [address] [place] [phone] Lalita Campoverde MD POST R CMBB #1 CALL 04/22/2025 10:29 AM COUNTER SALES PERSON - 04/22/2025 11:59 PM COUNTER SALES PERSON Hospital Encounter [facility] Imaging [address] [place] [address] Discharge Disposition: Discharge to home or self care 04/22/2025 7:50 AM COUNTER SALES PERSON - 04/22/2025 11:59 PM COUNTER SALES PERSON Hospital Encounter [facility] Imaging [address] [place] [address] Chasity Alvarado RN Mediastinal mass Discharge Disposition: Discharge to home or self care 04/21/2025 Telephone [facility] [address] [facility] 8th [place] [address] [place] [address] Fahad Castillo RN 04/20/2025 4:54 PM COUNTER SALES PERSON - 04/20/2025 11:59 PM COUNTER SALES PERSON Hospital Encounter [address] [place] [address] Discharge Disposition: Discharge to home or self care 04/20/2025 2:30 PM COUNTER SALES PERSON Office Visit [facility] Group at the [address] [phone] Jeffry Horton MD Encounter for annual wellness visit (AWV) in Medicare patient (Primary Dx); Pure hypercholesterolemia; Elevated glucose; Bronchiectasis without complication (HCC); Mediastinal mass 04/20/2025 Results Follow-Up [facility] at the [address] [phone] Jeffry Horton MD Lipid panel, Hemoglobin A1c, Comprehensive metabolic panel, without glucose (Outreach), Additional followed-up results: 2 04/20/2025 Orders Only [facility] at the [address] [phone] Jeffry Horton MD Pure hypercholesterolemia; Elevated glucose 04/16/2025 9:35 AM CDT Lab [facility] ([facility]) [address] [place] [phone] Bronchiectasis without complication (HCC); Mediastinal mass; Cough with hemoptysis 04/16/2025 8:30 AM CDT Office Visit [facility] Medicine Pulmonary [address] [facility] 8th [place] [address] [place] [phone] Trino Loza MD Mediastinal mass (Primary Dx); Bronchiectasis without complication (HCC); Cough with hemoptysis; 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; Fibrosing mediastinitis 04/16/2025 Results Follow-Up [facility] Medicine Pulmonary [address] [facility] 8th [place] [address] [place] [phone] Trino Loza MD Differential, auto 04/13/2025 Telephone [facility] Medicine Pulmonary [address] [facility] 8th [place] [address] [place] [phone] Trell Martinez CPhT 04/02/2025 Telephone [facility] [address] [facility] 8th [place] [address] [place] [address] Fahad Castillo, RN 04/02/2025 Telephone [facility] [address] [facility] 8th [place] [address] [place] [address] Dedra Herrera, HOSPITAL CLEANING SPECIALIST 03/30/2025 Telephone Radiology 1 [place] [address] Lydia Chau, RT 03/28/2025 9:30 AM CDT - 03/28/2025 11:59 PM CDT Hospital Encounter [facility] [address] [place] [address] Trino Loza MD Mediastinal mass; Aortitis Discharge Disposition: Discharge to home or self care 03/27/2025 9:54 AM CDT - 03/27/2025 11:59 PM CDT Hospital Encounter [facility] [address] [place] [address] Discharge Disposition: Discharge to home or self care 03/27/2025 9:54 AM CDT - 03/27/2025 11:59 PM CDT Hospital Encounter [facility] - [facility] [address] [facility] [address] [place] [address] Mediastinal mass; Malignant neoplasm of anterior mediastinum (HCC) Discharge Disposition: Discharge to home or self care 03/27/2025 Orders Only [facility] [address] [facility] [address] [place] [phone] Trino Loza MD Mediastinal mass (Primary Dx); Aortitis 03/25/2025 Telephone [facility] [address] [facility] 8th [place] [address] [place] [address] Dedra Herrera, HOSPITAL CLEANING SPECIALIST 03/24/2025 Telephone [facility] [address] [facility] 8th [place] [address] [place] [address] Fahad Castillo, RN 03/23/2025 Orders Only [facility] Medicine Pulmonary [address] [facility] 8th [place] [address] [place] [address] Fahad Castillo, RN Mediastinal mass (Primary Dx) 03/23/2025 Telephone [facility] Medicine Pulmonary [address] [facility] 8th [place] [address] [place] [address] Fahad Castillo, RN 03/23/2025 Orders Only [facility] Group at the [address] [place] [phone] Jeffry Horton MD 03/23/2025 Results Follow-Up [facility] Medicine Pulmonary [address] [facility] 8th [place] [address] [place] [phone] Trino Loza MD T-SPOT.TB Blood 03/23/2025 Telephone [facility] Medicine Pulmonary [address] [facility] 8th [place] [address] [place] [address] Fahad Castillo, DAYAN 03/19/2025 10:45 AM CDT Lab [facility] [address] [place] [address] [place] [address] Hemoptysis; Multiple lung nodules on CT 03/19/2025 9:09 AM CDT - 03/19/2025 11:59 PM CDT Hospital Encounter [facility] at [facility] [address] [address], [address] [place] [phone] Lalita Campoverde MD Cervical spondylosis (Primary Dx); Cervicalgia; DDD (degenerative disc disease), cervical Discharge Disposition: Discharge to home or self care 03/19/2025 8:30 AM CDT Telemedicine [facility] Medicine Pulmonary [address] [facility] 8th [place] [address] [place] [address] Trino Loza MD Bronchiectasis without complication (HCC) (Primary Dx); Hemoptysis; Lung nodules; Multiple lung nodules on CT; Mediastinal mass; Malignant neoplasm of anterior mediastinum (HCC); 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 03/19/2025 Telephone [facility] Medicine Pulmonary [address] [facility] 8th [place] [address] [place] [address] Fahad Castillo RN 03/02/2025 11:35 AM CDT - 03/02/2025 11:59 PM CDT Hospital Encounter [facility] [address] [place] [address] Hemoptysis Discharge Disposition: Discharge to home or self care 03/02/2025 10:30 AM CDT - 03/02/2025 11:59 PM CDT Hospital Encounter [facility] Medicine Pulmonary [address] [facility] [address] [place] [phone] Hemoptysis Discharge Disposition: Discharge to home or self care from Last 3 Months Immunizations Immunization Administration Dates Next Due COVID-19 MRNA (MODERNA) .5 M L (50 MCG) VACCINE (12 YEARS AND UP) 03/21/2023 Influenza, Quad, Adjuvantate d, Intramuscular 03/21/2023,04/02/2020 Influenza, Quadrivalent, Hig h Dose, Preservative Free, Intrr 03/16/2022,03/11/2021 Influenza, Quadrivalent, Spl it, Intramuscular 04/24/2017 Influenza, Quadrivalent, Spl it, Preservative Free, Intramuscular 04/02/2020 Influenza, Trivalent, Adjuva nted, Intramuscular 03/21/2025,03/11/2019,02/26/2018 Influenza, Trivalent, High D ose, Split, Preservative Free, Intramuscular 03/18/2024,04/24/2017,03/18/2016 Influenza, Unspecified 03/18/2018 Moderna SARS-CoV-2 Monovalen t Vaccination (12+ YRS) 08/05/2020,07/08/2020 Moderna Sars-cov-2 Bivalent Vaccine 50 Mcg/0.5 mL (12+ YRS)-Blue/Mack 04/03/2022 Pneumococcal Conjugate PCV 13 06/18/2016, 016,10/23/2015 Pneumococcal Polysaccharide PPV23 06/18/2017, RSV, Bivalent, Protein Subun it Rsvpref, Diluent (Abrysvo) 10/20/2024 Sars-cov-2 Covid-19 Mrna, Bi valent, Original/omicron Ba.1 10/20/2024,02/25/2024 Sars-cov-2 Covid-19 Mrna, Bi valent, Original/omicron Ba.1, A 03/21/2023 Tdap 04/01/2021,08/08/2007 ZOSTER LIVE 05/04/2014 ZOSTER Recombinant 06/20/2021,04/01/2021 Surgical History Surgery Date Site/Laterality Comments PORT PLACEMENT CHEST >5 YEARS 11/12/2015 N/A US UNLISTED PROCEDURE LYMPH SYSTEM 09/16/2015 N/A PORT REMOVAL 05/29/2016 N/A SECTION FL UPPER GI AIR CONTRAST W KUB 03/09/2020 Left BREAST SURGERY 06/18/2015 - 06/17/2016 Left 2016 lumpectomy TUBAL LIGATION 06/18/1988 - 06/17/1989 LUMBAR LAMINECTOMY 06/18/1996 - 06/17/1997 CATARACT EXTRACTION 06/04/2024 Right [id number] of power 22.0D AIM: Dr. Claire ESCALONA Medical History Medical History Date Comments Arthritis Cancer (HCC) GERD (gastroesophageal reflux disease) Seizures (HCC) Chronic pain disorder Low back pain Breast cancer (HCC) Cataract 2002 Sleep apnea 1998 History of radiation therapy History of chemotherapy Glaucoma Closed fracture of metatarsal bone 05/21/2024 Hemoptysis Family History Medical History Relation Name Comments Asthma Brother 2 Manjitn Liver cancer Father hepatoma Father Hepatitis B Heart disease Mother AF, at 97 y/o Pancreatic cancer Sister 1 Asthma Sister 2 Chinda Anesthesia problems Neg Hx Relation Name Status Comments Brother 1 Alive Brother 2 [place] Daughter Alive Father Mother AF, at 97 y/o Alive Sister 1 Alive Sister 2 Chinda Social History Tobacco Use Types Packs/Day Years Used Date Smoking Tobacco: Never Passive Smoke Exposure: Never Smokeless Tobacco: Never Tobacco Cessation:Counseling Given: Not Answered Alcohol Use Standard Drinks/Week Comments No 0 [...] on file Legal Sex Female 1:14 AM COUNTER SALES PERSON Gender Identity Female 05/14/2020 6:01 PM COUNTER SALES PERSON Sexual Orientation Straight 03/03/2019 8: 24 PM CDT 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 Job End Date 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 Not on file Not on file Not on file Obstetrics History Para Term AB IAB SAB Ectopic Multiple Livin g Live Births 2 1 1 Date Outcome GA Total Labor Labor/2nd/3rd Weight Sex Type Anes PTL Radha A1 A5 Name Clin Term Last Filed Vital Signs Vital Sign Reading Time Taken Comments Blood Pressure 122/75 05/19/2025 1:52 PM COUNTER SALES PERSON Pulse 71 05/19/2025 1:52 PM COUNTER SALES PERSON Temperature 36.3 C (97.3 F) 05/19/2025 1:52 PM COUNTER SALES PERSON Respiratory Rate 18 05/19/2025 1:52 PM COUNTER SALES PERSON Oxygen Saturation 98% 05/19/2025 1:52 PM COUNTER SALES PERSON Inhaled Oxygen Concentration - - Weight 66 kg (145 lb 8 oz) 05/19/2025 1:52 PM CS T Height 160 cm (5' 3) 05/13/2025 4:46 PM COUNTER SALES PERSON Body Mass Index 25.77 05/13/2025 4:46 PM COUNTER SALES PERSON Plan of Treatment Health Maintenance Due Date Last Done Comments Hepatitis C Screening 1950 Hepatitis B Screening 1968 Osteoporosis Screening-Bone Density Scan 03/21/2024 03/21/2022, 03/10/2020 Covid-19 Vaccine (9 - 2024-2 6 season) 2025 10/20/2024, 10/20/2024, 02/25/2024, Additional history exists Breast Cancer Screening-Mammogram 12/03/2025 12/03/2024, 12/04/2023, 12/07/2022, Additional history exists Depression Screening 04/20/2026 04/20/2025, 02/13/2025, 01/05/2025, Additional history exists Well Visit 65+ 04/20/2026 04/20/2025, 06/2023, 04/03/2023, Additional history exists Fall Risk Assessment 04/24/2026 04/24/2025, 04/20/2025, 03/19/2025, Additional history exists DTaP/Tdap/Td Vaccine (3 - Td or Tdap) 04/01/2031 04/01/2021, 08/08/2007 Colon Cancer Screening-Colonoscopy 03/28/2033 03/28/2023, 12/26/2017 Pneumococcal vaccine 65+ Completed 018, 06/18/2016, 06/13/2016, Additional history exists Zoster Vaccine Completed 06/20/2021, 03/18, 05/04/2014 Colon Cancer Screening-CT Colonography Discontinued 03/28/2023, 12/26/2017 Colon Cancer Screening-DNA Stool Discontinued 03/28/20 23, 12/26/2017 Colon Cancer Screening-FIT Discontinued 03/28/2023, Colon Cancer Screening-Sigmoidoscopy Discontinued 03/28/2023, 12/26/2017 Influenza Vaccine Completed 03/21/2025, , 03/21/2023, Additional history exists Goals Goal Patient Goal Type Associated Problems [...] programs, or options for improving home safety. Medical Devices Implanted Type Area Titrator Device Identifier Shelf Expiration Date Model / Serial / Lot [employer] Lens Iol 22d Envista Hydrophobic Acrylic Strl [id number] - [id number] - [id number] Implanted:Qty: 1 on 06/04/2024 by Claire Mendoza MD at [facility] Right: Eye [employer] [id number] 12/15/2026 [id number] / [id number] / [id number] Procedures Procedure Name Priority Date/Time Associated Diagnosis Comments MRI BRAIN W WO CONTRAST Schedule Routine, Read Routine (OP Routine) 05/13/2025 5:47 PM COUNTER SALES PERSON Thymic carcinoma (HCC) TEMPUS XF Routine 05/05/2025 3:05 PM COUNTER SALES PERSON Thymic carcinoma (HCC) PAIN MGMT IMAGING CERVICAL/THORACIC FACET/MEDIAL BRANCH BLOCK RIGHT Schedule Routine, Read Routine (OP Routine) 04/24/2025 8:46 AM COUNTER SALES PERSON Cervical spondylosis XR CHEST 1 VIEW IP Routine 04/22/2025 10:[address] MEDIASTINUM NEEDLE BIOPSY Schedule Routine, Read Routine (OP Routine) 04/22/2025 10:12 AM COUNTER SALES PERSON Mediastinal mass MYCOLOGY (FUNGAL) CULTURE Routine 04/22/2025 10:00 AM COUNTER SALES PERSON MYCOBACTERIOLOGY AFB CULTURE Routine 04/22/2025 10:00 AM COUNTER SALES PERSON AEROBIC AND ANAEROBIC CULTURE AND GRAM STAIN Routine 04/22/2025 10:00 AM COUNTER SALES PERSON FLOW LEUKEMIA/LYMPHOMA Routine 04/22/2025 9:48 AM COUNTER SALES PERSON SURGICAL PATHOLOGY Routine 04/22/2025 9:48 AM COUNTER SALES PERSON Mediastinal mass EGFR Routine 04/20/2025 2:24 PM COUNTER SALES PERSON Pure hypercholesterolemia GLUCOSE, RANDOM (OUTREACH) Routine 04/20/2025 2:24 PM COUNTER SALES PERSON Pure hypercholesterolemia COMPREHENSIVE METABOLIC PANEL WITHOUT GLUCOSE (OUTREACH) Routine 04/20/2025 2:24 PM COUNTER SALES PERSON Pure hypercholesterolemia HEMOGLOBIN A1C Routine 04/20/2025 2:24 PM COUNTER SALES PERSON Elevated glucose COMPREHENSIVE METABOLIC PANEL (OUTREACH) Routine 04/20/2025 2:24 PM COUNTER SALES PERSON Pure hypercholesterolemia LIPID PANEL Routine 04/20/2025 2:24 PM COUNTER SALES PERSON Pure hypercholesterolemia DIFFERENTIAL AUTO Routine 04/16/2025 9:58 AM CDT Mediastinal mass PROTIME-INR Routine 04/16/2025 9:58 AM CDT Mediastinal mass Cough with hemoptysis CBC WITH AUTO DIFFERENTIAL Routine 04/16/2025 9:58 AM CDT Mediastinal mass ALLERGIC BRONCHOPULMONARY ASPERGILLOSIS CASCADE Routine 04/16/2025 9:46 AM CDT Bronchiectasis without complication (HCC) IGG Routine 04/16/2025 9:46 AM CDT Bronchiectasis without complication (HCC) IGM Routine 04/16/2025 9:46 AM CDT Bronchiectasis without complication (HCC) IMMUNOGLOBULIN IGG SUBCLASSES Routine 04/16/2025 9:46 AM CDT Bronchiectasis without complication (HCC) MICHELLE QUALITATIVE WITH REFLEX TO MICHELLE QUANTITATIVE Routine 04/16/2025 9:46 AM CDT Bronchiectasis without complication (HCC) CYCLIC CITRUL PEPTIDE ANTIBODY, IGG Routine 04/16/2025 9:46 AM CDT Bronchiectasis without complication (HCC) ANTI-NEUTROPHILIC CYTOPLASMIC ANTIBODY (ANCA) WITH REFLEX TO MPO AND PR3 ABS Routine 04/16/2025 9:46 AM CDT Bronchiectasis without complication (HCC) RHEUMATOID FACTOR Routine 04/16/2025 9:46 AM CDT Bronchiectasis without complication (HCC) ONI ANTIBODY EVALUATION WITH REFLEX Routine 04/16/2025 9:46 AM CDT Bronchiectasis without complication (HCC) IGA Routine 04/16/2025 9:46 AM CDT Bronchiectasis without complication (HCC) [id number] PROTEOTYPE Routine 04/16/2025 9:46 AM CDT Bronchiectasis without complication (HCC) MRA CHEST W WO CONTRAST Schedule Routine, Read Routine (OP Routine) 03/28/2025 11:07 AM CDT Mediastinal mass Aortitis PET/CT FDG SKULL TO THIGH Schedule Routine, Read Routine (OP Routine) 03/27/2025 12:46 PM CDT 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) HISTOPLASMA ANTIBODY Routine 03/19/2025 11:14 AM CDT Multiple lung nodules on CT ALLERGIC BRONCHOPULMONARY ASPERGILLOSIS CASCADE Routine 03/19/2025 11:03 AM CDT Hemoptysis Multiple lung nodules on CT COCCIDIOIDES ANTIBODY SCREEN W/REFLEX Routine 03/19/2025 11:03 AM CDT Multiple lung nodules on CT T-SPOT.TB Routine 03/19/2025 11:03 AM CDT Hemoptysis Multiple lung nodules on CT ASPERGILLUS GALACTOMANNAN ANTIGEN Routine 03/19/2025 11:03 AM CDT Multiple lung nodules on CT BLASTOMYCES ANTIBODY, EIA, S Routine 03/19/2025 11:03 AM CDT Multiple lung nodules on CT CRYPTOCOCCAL ANTIGEN, SERUM Routine 03/19/2025 11:03 AM CDT Multiple lung nodules on CT XR CHEST PA LATERAL 2 VIEWS Schedule Routine, Read Routine (OP Routine) 03/02/2025 11:42 AM CDT Hemoptysis PULMONARY FUNCTION TEST (PFT) Routine 03/02/2025 11:29 AM CDT Hemoptysis SCREENING MAMMOGRAM BILATERAL W KEN Schedule Routine, Read Routine (OP Routine) 12/03/2024 9:45 AM CDT Screening mammogram, encounter for COLONOSCOPY 03/28/2023 10:06 AM CDT DEXA AXIAL SKELETON BONE DENSITY 1 OR MORE SITES Schedule Routine, Read Routine (OP Routine) 03/21/2022 10:36 AM CDT Osteopenia, unspecified location Asymptomatic menopausal state from Last 3 Months or Most Recently Relevant to Health Maintenance Results * MRI Brain W WO Contrast (05/13/2025 5:47 PM COUNTER SALES PERSON) Anatomical Region Laterality Modality Head and Neck N/A Magnetic Resonan ce 05/15/2025 8:5 8 AM COUNTER SALES PERSON Impressions 05/15/2025 11:25 AM COUNTER SALES PERSON 1. No evidence of intracranial metastatic disease. 2. Numerous T2/FLAIR white matter hyperintensities, compatible with chronic microvascular changes. Dictated by: Richard Barakat M.D. The radiology attending physician has personally reviewed this study, and had reviewed and/or edited this written report and agrees with it. Electronically signed by: Babatunde Chambers M.D. 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 Contrast information: 12 mL Gadoterate Meglumine IV COMPARISON: None Available. FINDINGS: The scalp and calvarium are normal. The superior sagittal sinus demonstrates normal venous flow. The corpus callosum is normal in shape and signal intensity. The posterior fossa is unremarkable. The pituitary and sella are normal. The brainstem and craniocervical junction are unremarkable. Numerous small T2/FLAIR hyperintensities in the periventricular, deep and subcortical white matter, compatible with chronic microvascular changes. Diffusion weighted images reveal no hyperintensities to suggest acute cerebral infarction. The susceptibility weighted sequences reveal no evidence of acute or chronic hemorrhage. The ventricles are normal in size and position without evidence of hydrocephalus. The paranasal sinuses are normal. The visualized portions of the mastoids are unremarkable. Right ocular lens replacement. Normal flow voids are demonstrated in the carotid arteries and basilar artery. There is no abnormal contrast enhancement. 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 Contrast information: 12 mL Gadoterate Meglumine IV COMPARISON: None Available. FINDINGS: The scalp and calvarium are normal. The superior sagittal sinus demonstrates normal venous flow. The corpus callosum is normal in shape and signal intensity. The posterior fossa is unremarkable. The pituitary and sella are normal. The brainstem and craniocervical junction are unremarkable. Numerous small T2/FLAIR hyperintensities in the periventricular, deep and subcortical white matter, compatible with chronic microvascular changes. Diffusion weighted images reveal no hyperintensities to suggest acute cerebral infarction. The susceptibility weighted sequences reveal no evidence of acute or chronic hemorrhage. The ventricles are normal in size and position without evidence of hydrocephalus. The paranasal sinuses are normal. The visualized portions of the mastoids are unremarkable. Right ocular lens replacement. Normal flow voids are demonstrated in the carotid arteries and basilar artery. There is no abnormal contrast enhancement. IMPRESSION: 1. No evidence of intracranial metastatic disease. 2. Numerous T2/FLAIR white matter hyperintensities, compatible with chronic microvascular changes. Dictated by: Richard Barakat M.D. The radiology attending physician has personally reviewed this study, and had reviewed and/or edited this written report and agrees with it. Electronically signed by: Babatunde Chambers M.D. us Danika Elizondo MD PhD IMG MRI PROCEDURES Final R esult * [facility] - Lab Collect (05/05/2025 3:05 PM COUNTER SALES PERSON) Reason for Study To identify mutations relevant to patient's cancer. 05/12/2025 3:31 PM COUNTER SALES PERSON [facility] Genetic Diseases Assessed Cancer 05/12/2025 3:31 PM COUNTER SALES PERSON [facility] Description of Ranges of DNA Sequences Examined 105 gene liquid biopsy 05/12/2025 3:31 PM COUNTER SALES PERSON [facility] Overall Interpretation positive 05/12/2025 3:31 PM COUNTER SALES PERSON [facility] [email or web address] [id number] 05/12/2025 3:31 PM COUNTER SALES PERSON [facility] Comment:[facility] link Low Coverage Regions JAK1, SPOP 05/12/2025 3:31 PM COUNTER SALES PERSON [facility] Trial Count 1 05/12/2025 3:31 PM COUNTER SALES PERSON [facility]: Clinical Trial Match 1 Clinical Trial NCT ID: [id number] Clinical Trial Title: A Dgmft-Ua-Dhbcx, Phase 1 Study Evaluating Oral TACC3 PPI Inhibitor, AO-252, in Advanced Solid Tumors With or Without Brain Metastases Clinical Trial URL: [email or web address] ltrials.gov/[email or web address] /[email or web address] Clinical Phase: Phase 1 Clinical Trial Matches: TP53 p.S96fs mutation Clinical Trial Distance and Location: [address], [place], [place] 05/12/2025 3:31 PM COUNTER SALES PERSON [facility] Blood Tumor Mutational [place] Note bTMB cannot be calculated due to insufficient circulating tumor DNA. 05/12/2025 3:31 PM COUNTER SALES PERSON [facility] ctDNA Tumor Fraction <0.25 % 05/12/2025 3:31 PM COUNTER SALES PERSON [facility] Microsatellite Instability Note MSI-High not detected 05/12/2025 3:31 PM COUNTER SALES PERSON [facility] Treatment Implications Note No reportable treatment options found. 05/12/2025 3:31 PM COUNTER SALES PERSON [facility] Blood specimen (specimen) 05/05/2025 3:05 PM COUNTER SALES PERSON 05/06/2025 6:43 PM COUNTER SALES PERSON Narrative This result has genomic variants that were not included in this document. Danika Elizondo MD PhD LAB GENETIC TESTING Final Result Performing Organization Address [facility] de Phone Number [facility] [address] [facility], [address] [place] [address] [facility] [address] [facility], [address] [place] [address] * Imaging Cervical/Thoracic Facet Medial Branch Block Right (32713) (04/24/2025 8:46 AM COUNTER SALES PERSON) Narrative [facility] - 04/24/2025 8:47 AM COUNTER SALES PERSON The images from this study are not interpreted by Radiology. Please refer to the physician's procedure / OR operative note. Lalita Campoverde MD IMG PAIN MGMT PROCEDURES F inal Result Performing Organization Address [facility] de Phone Number [facility] * XR Chest 1 View (04/22/2025 10:36 AM COUNTER SALES PERSON) Anatomical Region Laterality Modality Body, Chest N/A Computed Radiogr aphy 04/22/2025 10:4 6 AM COUNTER SALES PERSON Impressions 04/22/2025 10:48 AM COUNTER SALES PERSON Comparison made to chest radiograph 03/02/2025. No pneumothorax. No pleural effusion. No pulmonary consolidation. Widening of the right paratracheal stripe corresponding to known mediastinal mass. Normal heart size. Atherosclerosis of the aortic arch. Dictated by: Selwyn Gutierrez MD The radiology attending physician has personally reviewed this study, and had reviewed and/or edited this written report and agrees with it. Electronically signed by: Main Hackett M.D. Narrative 04/22/2025 10:48 AM COUNTER SALES PERSON EXAMINATION: 1 view chest radiograph Procedure Note Main Hackett MD - 04/22/2025 EXAMINATION: 1 view chest radiograph IMPRESSION: Comparison made to chest radiograph 03/02/2025. No pneumothorax. No pleural effusion. No pulmonary consolidation. Widening of the right paratracheal stripe corresponding to known mediastinal mass. Normal heart size. Atherosclerosis of the aortic arch. Dictated by: Selwyn Gutierrez MD The radiology attending physician has personally reviewed this study, and had reviewed and/or edited this written report and agrees with it. Electronically signed by: Main Hackett M.D. us Idris Gardner MD IMG XR PROCEDURES Final Result * CT Mediastinum Needle Biopsy (04/22/2025 10:12 AM COUNTER SALES PERSON) Anatomical Region Laterality Modality Mediastinum N/A Computed Tomogra phy 04/22/2025 10:4 9 AM COUNTER SALES PERSON Impressions 04/22/2025 10:49 AM COUNTER SALES PERSON Successful CT-guided core biopsy of the mediastinal mass. Please see separate pathology results for interpretation of the submitted biopsy material. Electronically signed by: Idris Gardner M.D., MPH Narrative 04/22/2025 10:49 AM COUNTER SALES PERSON EXAMINATION: 1. CT guided core biopsy of mediastinal lesion 2. CT guidance for needle placement. 3. CT guided FNA of mediastinal lesion HISTORY: Anterior mediastinal mass with uptake on PET scan. Technique: The benefits, risks and alternatives to the procedure were discussed with the patient. The risk of possible pneumothorax was explained to the patient. Written consent was obtained for a lung nodule biopsy and possible chest tube placement if there was a pneumothorax. The patient was placed in a supine position. Initial CT images were performed for localization. An appropriate biopsy site was selected and marked on the skin. A biopsy site was prepped and draped in the usual sterile fashion. The overlying skin and soft tissues were anesthetized with less than 5 mL of 1% lidocaine. Under computed tomography guidance, a coaxial needle biopsy system was utilized. An outer needle was advanced into the lesion under CT guidance. Breathing instructions were provided to the patient throughout the procedure. After positioning the outer needle adjacent to the lesion, an inner core biopsy device was advanced into the lesion. Total of 6 core biopsies were obtained, directing the outer coaxial needle towards the lesion. The core material was placed in formalin and RPMI. 3 additional passes were made with Franseen needles for cultures. Cultures were sent for culture sensitivity Gram stain anaerobic and aerobic and fungal. Core biopsy tissue was also provided to the Genomics research team for processing. [place] utilized: Coaxial outer needle: 5 cm 19-gauge Biopsy Needle: 10 cm 20-gauge FNA needle: 10 cm Franseen needle The skin was then cleansed with peroxide, dressed with sterile Band-Aid. FINDINGS: The initial CT localization images demonstrated anterior mediastinal nodule. Images obtained during the core biopsy procedure demonstrate positioning of the outer coaxial needle adjacent to the lesion of interest. As the patient was feeling well and did not report any new symptoms, the patient was subsequently discharged home in good condition. The patient was instructed to go the nearest emergency room if they should develop chest pain, shortness of breath or hemoptysis greater than 5 tablespoons. ATTENDING RADIOLOGIST: The attending radiologist Dr. Idris Gardner M.D., MPH was present for the entire procedure. Procedure Note Idris Gardner MD - 04/22/2025 EXAMINATION: 1. CT guided core biopsy of mediastinal lesion 2. CT guidance for needle placement. 3. CT guided FNA of mediastinal lesion HISTORY: Anterior mediastinal mass with uptake on PET scan. Technique: The benefits, risks and alternatives to the procedure were discussed with the patient. The risk of possible pneumothorax was explained to the patient. Written consent was obtained for a lung nodule biopsy and possible chest tube placement if there was a pneumothorax. The patient was placed in a supine position. Initial CT images were performed for localization. An appropriate biopsy site was selected and marked on the skin. A biopsy site was prepped and draped in the usual sterile fashion. The overlying skin and soft tissues were anesthetized with less than 5 mL of 1% lidocaine. Under computed tomography guidance, a coaxial needle biopsy system was utilized. An outer needle was advanced into the lesion under CT guidance. Breathing instructions were provided to the patient throughout the procedure. After positioning the outer needle adjacent to the lesion, an inner core biopsy device was advanced into the lesion. Total of 6 core biopsies were obtained, directing the outer coaxial needle towards the lesion. The core material was placed in formalin and RPMI. 3 additional passes were made with Franseen needles for cultures. Cultures were sent for culture sensitivity Gram stain anaerobic and aerobic and fungal. Core biopsy tissue was also provided to the Genomics research team for processing. [place] utilized: Coaxial outer needle: 5 cm 19-gauge Biopsy Needle: 10 cm 20-gauge FNA needle: 10 cm Franseen needle The skin was then cleansed with peroxide, dressed with sterile Band-Aid. FINDINGS: The initial CT localization images demonstrated anterior mediastinal nodule. Images obtained during the core biopsy procedure demonstrate positioning of the outer coaxial needle adjacent to the lesion of interest. As the patient was feeling well and did not report any new symptoms, the patient was subsequently discharged home in good condition. The patient was instructed to go the nearest emergency room if they should develop chest pain, shortness of breath or hemoptysis greater than 5 tablespoons. ATTENDING RADIOLOGIST: The attending radiologist Dr. Idris Gardner M.D., MPH was present for the entire procedure. IMPRESSION: Successful CT-guided core biopsy of the mediastinal mass. Please see separate pathology results for interpretation of the submitted biopsy material. Electronically signed by: Idris Gardner M.D., MPH us Trino Loza MD IMG CT PROCEDURES Fi nal Result * Mycology (fungal) culture Aspirate Mediastinum (04/22/2025 10:00 AM COUNTER SALES PERSON) Report Final Report: No fungus isolated Comment:Testing performed by : [facility], [facility] [facility], [place]., [address] Aspirate (Mediastinum) 04/22/2025 10:00 AM COUNTER SALES PERSON 04/22/2025 12:38 PM COUNTER SALES PERSON Narrative [facility] - 05/20/2025 1:00 PM COUNTER SALES PERSON Mycology cultures are held for 4 weeks. us Trino Loza MD LAB MICROBIOLOGY - G ENERAL ORDERABLES Final Result Performing Organization Address [facility]/ZIP Co de Phone Number [facility]UD [facility] [address] [address] [facility] [employer] [place] [address] * Aerobic and anaerobic culture and gram stain Wound Mediastinum (04/22/2025 10:00 AM COUNTER SALES PERSON) Direct Specimen Exam Stain: No polymorphonuclear leukocytes seen. No organisms seen. Comment:Testing performed by : [facility], [address] [place] [address]., [id number] Report Final Report: No growth ELIUD JACOBS Comment:Testing performed by : [facility], [address] [place] [address]., [id number] Wound (Mediastinum) 04/22/2025 10:00 AM COUNTER SALES PERSON 04/22/2025 12:38 PM COUNTER SALES PERSON Trino Loza MD LAB MICROBIOLOGY - G ENERAL ORDERABLES Final Result Performing Organization Address [facility] Co de Phone Number EL[facility]UD [facility] [address] [address] [employer] [place] [address] * Flow Leukemia/Lymphoma Tissue (04/22/2025 9:48 AM COUNTER SALES PERSON) Barakat Stain Test Completed Comment:Testing performed by : [facility], [address] [place]., [address] Leukemia/Lymp hipolito Result See separate Surgical Pathology report. ELIUD JACOBS Comment:Testing performed by : [facility], [address] [place]., [address] Tissue 04/22/2025 9:48 AM COUNTER SALES PERSON 04/22/2025 5:12 PM COUNTER SALES PERSON us Chasity Alvarado RN LAB PATHOLOGY ORDERABLES F inal Result Performing Organization Address City/[facility]/ZIP Co de Phone Number [facility] [address] [address] [facility] [place] [address] * Surgical pathology (04/22/2025 9:48 AM COUNTER SALES PERSON) Tissue (Mediastinal, Mass/Biopsy including flow) 04/22/2025 9:48 AM COUNTER SALES PERSON Comment:SURGICAL PATH AND FL OW 1-Formalin 1-RPMI Tissue specimen (specimen) (Mediastinal, Mass/Biopsy including flow) 04/22/2025 9:53 AM COUNTER SALES PERSON Comment:Send to flow Narrative PATHOLOGY BJ - 04/28/2025 12:51 PM COUNTER SALES PERSON EPIC results best viewed via link to PDF [facility] [place] [address] Note to Patients: This report may contain a detailed description of human tissue sent by a health care provider to the laboratory for pathologic evaluation. The content of this report is essential for diagnosis and may provide important critical findings. This information may be unfamiliar to patients to review without a medical professional present. It is advised that the patient review this report in the presence of a health care provider who can answer questions and explain the details. SURGICAL PATHOLOGY REPORT FINAL WITH ADDENDUM Patient Name: LASHELL NIETO MD Gender: F : 1950 (Age: 74) Address: [address] [place] [id number] Hospital #: [id number] Taken:04/22/2025 Received:04/22/2025 Reported: 04/28/2025 Patient Type: [facility] EP ANCIL Client [facility] Service: Laboratory Location: Physician(s): Idris Gardner M.D. Dr. Jeffry Horton M.D. Diagnosis: A. Mediastinum, biopsy - Thymic squamous cell carcinoma, see comment B. Tissue, flow cytometry: - Too few cells to perform flow cytometry chra/04/23/2025 16:59 By this signature, I attest that the above diagnosis is based upon my personal examination of the slides(and/or other material indicated in the diagnosis). Yadi Canada MD PhD Report Electronically Reviewed and Signed Out By Yadi Canada MD PhD 04/28/2025 12:51:15 Microscopic Description and Comment: (Part A) Sections show a dense stroma with clusters of atypical epithelioid cells, demonstrating nuclear pleomorphism, moderate amount of cytoplasm, and variably prominent nucleoli. Multiple rounds of immunostains were performed (single antibody procedure with appropriate controls) for further characterization. Lesional cells are positive for P40, CK5/6, Cd5 and c-Kit. INSM-1 demonstrates patchy positivity. TTF-1 and GATA3 are negative. 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 This part of the case was reviewed by an additional cardiothoracic pathologists for quality system manager. This result was flagged as significant and was sent to Drs. Idris Gardner and Trino Loza via [employer] chat on 04/28/2025. 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 Flow Cytometric Analysis Specimen quality: paucicellular Flow cytometry was not performed due to insufficient viable cell counts. A Barakat-Giemsa stained cytospin from the flow cytometry specimen was examined for internal quality control specialist purposes. (The flow cytometry was reviewed by Dr. Jennifer Roblero, hematopathologist) Nigel Johansen M.D. History: The patient is a 74-year-old woman presenting with mediastinal mass. Operative procedure: Mediastinal mass biopsy. Specimen(s) Received: A: Send to flow B: Send to flow Gross Description: Received in formalin and a white cytology cassette labeled sent to flow is one white core of soft tissue measuring 0.7 cm in length by 0.1 cm in diameter. Labeled A1. Jar 0. elsw/04/22/2025 16:19 PA(s): Lydia Robles FLOW CYTOMETRY: LEUKEMIA PANEL Specimen information: TISSUE Cell count: 0.02x10^6 Too few cells to perform flow cytometric analysis By this signature, I attest that the above diagnosis is based upon my personal examination of the slides(and/or other material). Addenda/Procedures Addendum Ordered:04/28/2025Status:Signed OutAddendum Complete:04/28/2025y:Yadi Canada MD PhDAddendum Signed Out:04/28/2025 Addendum Comment A TRPS1 immunostain was performed with proper controls and it is negative. The original diagnosis remains unchanged. By this signature, I attest that the above diagnosis is based upon my personal examination of the slides(and/or other material indicated in the diagnosis). Yadi Canada MD PhDReport Electronically Reviewed and Signed Out By Yadi Canada MD PhD 04/28/2025 15:48:35Nigel Johansen M.D. The TRPS-1 IHC test was performed by [facility], [address] [place] [address]. Microscopic slide review and interpretation for this case was performed at [facility], Department of Surgical Pathology, [address] [facility] [place], [place] [id number], [place] [address] CLIA # [id number] The performance characteristics of some immunohistochemical stains, fluorescence in-situ hybridization tests and immunophenotyping by flow cytometry cited in this report (if any) were determined by the Surgical Pathology and Flow Cytometry Departments at [facility] as part of an ongoing quality system manager program and in compliance with federally mandated regulations drawn from the Clinical Laboratory Improvement Act of 1988 (CLIA '88). Some of these tests rely on the use of analyte specific reagents and are subject to specific labeling requirements by the US Food and Drug Administration. Such diagnostic tests may only be performed in a facility that is certified by the Department of Health and Human Services as a high complexity laboratory under CLIA '88. The FDA has determined that such clearance or approval is not necessary. This test is used for clinical purposes. It should not be regarded as investigational or for research. Nevertheless, federal rules concerning the medical use of analyte specific reagents require that the following disclaimer be attached to the report: This test was developed and its performance characteristics determined by the Surgical Pathology and Flow Cytometry Departments of [facility]. It has not been cleared or approved by the U. S. Food and Drug Administration. IMAGES AND SCANNED DOCUMENTS, IF INCLUDED, ONLY VIEWABLE IN PDF VERSION OF REPORT Idris Gardner MD LAB PATHOLOGY ORDERABLES Final Result PATHOLOGY [facility] [phone] * Glucose, random (Outreach) (04/20/2025 2:24 PM COUNTER SALES PERSON) Glucose 114 70 - 199 mg/dL Comment: Interpretive Data Fasting glucose >/= 126 mg/dl is diagnostic for diabetes. Fasting is defined as no caloric intake for at least 8 hours. Fasting glucose between 100 mg/dl to 125 mg/dl is diagnostic of prediabetes. In a patient with classic symptoms of hyperglycemia or hyperglycemic crisis, a random glucose >/= 200 mg/dl is diagnostic for diabetes. In the absence of unequivocal hyperglycemia, results should be confirmed by repeat testing. The classification and Diagnosis of Diabetes Diabetes Care 2021; 46: S19-S40. Current interpretive data was last revised 2022. Blood 04/20/2025 2:24 PM COUNTER SALES PERSON 04/20/2025 5:51 PM COUNTER SALES PERSON Jeffry Horton MD LAB BLOOD ORDERABLES Final Re sult [facility] Department [place] [address] * eGFR (04/20/2025 2:24 PM COUNTER SALES PERSON) eGFR >90 >=60 mL/min/1. 73 m2 Comment: Interpretive Data Reference Interval Normal >/= 90 mL/min/1.73m2 Mildly decreased* 60 - 89 mL/min/1.73m2 Mildly to moderately decreased 45 - 59 mL/min/1.73m2 Moderately to severely decreased 30 - 44 mL/min/1.73m2 Severely decreased 15 - 29 mL/min/1.73m2 Kidney Failure < 15 mL/min/1.73m2 *Relative to young adult level Estimated glomerular filtration rate is determined by the 2020 CKD-EPI equation recommended by the National Kidney Foundation (A Unifying Approach to GFR Estimation: Recommendations of the NKF-ASK Task Force on Reassessing the Inclusion of Race in Diagnosing Kidney Disease, JASN 2020). The CKD-EPI equation should not be used for patients with unstable renal function and has not been validated in children and those over 70. Current interpretive data was last reviewed 2021. Blood 04/20/2025 2:24 PM COUNTER SALES PERSON 04/20/2025 5:57 PM COUNTER SALES PERSON Jeffry Horton MD LAB BLOOD ORDERABLES Final Re sult Performing Organization Address City/[facility]/ZIP Co de Phone Number [facility] Department of [employer] [place] [address] * Comprehensive metabolic panel, without glucose (Outreach) (04/20/2025 2:24 PM COUNTER SALES PERSON) Sodium 142 135 - 145 mmol/L Potassium, pl 3.6 3.3 - 4.9 mmol/L [facility] Chloride 103 97 - 110 mmol/L [facility] CO2 25 22 - 32 mmol/L [facility] Anion gap 14 2 - 15 mmol/L [facility] BUN 18 6 - 25 mg/dL [facility] Creatinine 0.68 0.60 - 1.10 mg/dL [facility] Calcium 9.3 8.5 - 10.3 mg/dL [facility] Protein, pl 6.9 6.5 - 8.5 g/dL [facility] Albumin 4.0 3.5 - 5.0 g/dL [facility] Bilirubin, total 0.3 0.1 - 1.2 mg/dL [facility] Alk phos 81 40 - 130 Units/L [facility] AST 25 10 - 45 Units/L [facility] ALT 23 7 - 45 Units/L [facility] Blood 04/20/2025 2:24 PM COUNTER SALES PERSON 04/20/2025 5:51 PM COUNTER SALES PERSON Jeffry Horton MD LAB BLOOD ORDERABLES Final Re sult Performing Organization Address City/[facility]/ZIP Co de Phone Number [facility] Department of [employer] [place] [address] * Hemoglobin A1c (04/20/2025 2:24 PM COUNTER SALES PERSON) Hgb A1C 5.5 4.0 - 5.6 % Estimated Average Glucose 111 mg/dL [facility] Comment: The ADA recommends reporting an estimated Average Glucose (eAG) with all Hemoglobin A1c results using the equation derived from a study of 507 normal and diabetic adults. Minority populations were underrepresented and children were not included. (Diabetes Care 2020; 43(S1): S66-S76). The eAG is not equivalent to a fasting glucose. Blood 04/20/2025 2:24 PM COUNTER SALES PERSON 04/20/2025 5:51 PM COUNTER SALES PERSON us Jeffry Horton MD LAB BLOOD ORDERABLES Final Re sult [facility] Department [place] [address] * Lipid panel (04/20/2025 2:24 PM COUNTER SALES PERSON) Cholesterol 190 30 - 199 mg/dL Comment: Interpretive Data Ages < or = 19 years Acceptable: <170 mg/dL Borderline high: 170-199 mg/dL High: >or= 200 mg/dL Ages > or = 20 years Desirable: <200 mg/dL Borderline high: 200-239 mg/dL High: >or= 240 mg/dL Literature References: 1. Expert Panel on Integrated Guidelines for Cardiovascular Health and Risk Reduction in Children and Adolescents. Pediatrics 2011;128:S213 2. NCEP Expert Panel. Circulation 2004;110:227 Current Interpretive Data was last revised on 2018. Triglycerides 96 <=149 mg/dL [facility] Comment: Interpretive Data Ages < or = 9 years Acceptable: <75 mg/dL Borderline high: 75-99 mg/dL High: >or= 100 mg/dL Ages 10 to 20 years Acceptable: <90 mg/dL Borderline high: 90-129 mg/dL High: >or= 130 mg/dL Ages > or = 20 years Desirable: <150 mg/dL Borderline high: 150-199 mg/dL High: 200-499 mg/dL Very high: >or= 499 mg/dL Literature References: 1. Expert Panel on Integrated Guidelines for Cardiovascular Health and Risk Reduction in Children and Adolescents. Pediatrics 2011;128:S213 2. NCEP Expert Panel. Circulation 2004;110:227 Current Interpretive Data was last revised on 2018. HDL 66 >=40 mg/dL [facility] Comment: Interpretive Data Ages < or = 19 years Acceptable: >45 mg/dL Borderline low: 40-45 mg/dL Low: <40 mg/dL Ages > or = 20 years Desirable: >or= 60 mg/dL Low: <40 mg/dL Literature References: 1. Expert Panel on Integrated Guidelines for Cardiovascular Health and Risk Reduction in Children and Adolescents. Pediatrics 2011;128:S213 2. NCEP Expert Panel. Circulation 2004;110:227 Current Interpretive Data was last revised on 2018. LDL, calculated 107 <=129 mg/dL [facility] Comment: Interpretive Data Ages < or = 19 years Acceptable: <110 mg/dL Borderline high: 110-129 mg/dL High: >or= 130 mg/dL Ages > or = 20 years Optimal: <100 mg/dL Near optimal: 100-129 mg/dL Borderline high: 130-159 mg/dL High: >160 mg/dL Calculated using the Paddy LDL-C estimating equation. This equation was implemented on 2024. Prior to this date LDL-C was estimated using the Friedewald equation. Literature References: 1. Expert Panel on Integrated Guidelines for Cardiovascular Health and Risk Reduction in Children and Adolescents. Pediatrics 2011;128:S213 2. NCEP Expert Panel. Circulation 2004;110:227 3. Paddy Sweeney al. MODE Cardiol. 2019October 16;5(5):540-548. doi: 10.1001/[email or web address] Current Interpretive Data was last revised on 2024. Non-HDL Cholesterol 124 mg/dL [facility] Comment: Interpretive Data Ages < or = 19 years Acceptable: <120 mg/dL Borderline high: 120-144 mg/dL High: >145 mg/dL Ages > or = 20 years When triglycerides are >200 mg/dL, Non-HDL cholesterol is a secondary target of therapy with treatment goals that are 30 mg/dL greater than the LDL cholesterol target. Literature References: 1. Expert Panel on Integrated Guidelines for Cardiovascular Health and Risk Reduction in Children and Adolescents. Pediatrics 2011;128:S213 2. NCEP Expert Panel. Circulation 2004;110:227 Current Interpretive Data was last revised on 2018. Chol/HDL ratio 3 [facility] Blood 04/20/2025 2:24 PM COUNTER SALES PERSON 04/20/2025 5:51 PM COUNTER SALES PERSON us Jeffry Horton MD LAB BLOOD ORDERABLES Final Re sult [facility] Department [place] [address] * Differential, auto (04/16/2025 9:58 AM CDT) Neutrophil abs 5.90 1.50 - 6.50 K/cumm Imm gran abs 0.03 0.00 - 0.10 K/cumm [facility] Lymphocyte abs 1.19 0.80 - 3.30 K/cumm [facility] Monocyte abs 0.49 0.20 - 0.80 K/cumm [facility] Eosinophil abs 0.12 0.00 - 0.50 K/cumm [facility] Basophil abs 0.04 0.00 - 0.10 K/cumm [facility] Neutrophil pct 76.0 % [facility] Comment: Interpretive Data Percent cell count reference ranges are not reported, since discordance with absolute values may lead to misinterpretation of CBC data. Current Interpretive Data was last revised on 2017. Imm gran pct 0.4 % [facility] Comment: Interpretive Data Percent cell count reference ranges are not reported, since discordance with absolute values may lead to misinterpretation of CBC data. Current Interpretive Data was last revised on 2017. Lymphocyte pct 15.3 % [facility] Comment: Interpretive Data Percent cell count reference ranges are not reported, since discordance with absolute values may lead to misinterpretation of CBC data. Current Interpretive Data was last revised on 2017. Monocyte pct 6.3 % [facility] Comment: Interpretive Data Percent cell count reference ranges are not reported, since discordance with absolute values may lead to misinterpretation of CBC data. Current Interpretive Data was last revised on 2017. Eosinophil pct 1.5 % [facility] Comment: Interpretive Data Percent cell count reference ranges are not reported, since discordance with absolute values may lead to misinterpretation of CBC data. Current Interpretive Data was last revised on 2017. Basophil pct 0.5 % [facility] Comment: Interpretive Data Percent cell count reference ranges are not reported, since discordance with absolute values may lead to misinterpretation of CBC data. Current Interpretive Data was last revised on 2017. Blood 04/16/2025 9:58 AM CDT 04/16/2025 10:09 AM CDT Trino Loza MD LAB BLOOD ORDERABLES Final Result [facility] Department [place] [address] * (ABNORMAL) CBC with auto differential (04/16/2025 9:58 AM CDT) WBC 7.77 3.80 - 9.90 K/cumm Hgb 13.3 11.9 - 15.5 g/dL [facility] Hct 40.9 35.6 - 45.5 % [facility] Plt 221 150 - 400 K/cumm [facility] MPV 11.1 9.1 - 12.3 fL [facility] RBC 4.34 3.90 - 5.20 M/cumm [facility] MCV 94.2 81.3 - 96.4 fL [facility] MCH 30.6 27.1 - 33.3 pg [facility] MCHC 32.5 32.3 - 35.7 g/dL [facility] RDW CV 14.4 11.1 - 14.9 % [facility] RDW SD 49.8(H) 35.7 - 48.1 fL [facility] NRBC abs 0.00 0.00 - 0.01 K/cumm [facility] Blood 04/16/2025 9:58 AM CDT 04/16/2025 10:09 AM CDT Trino Loza MD LAB BLOOD ORDERABLES Final Result Performing Organization Address [facility] Co de Phone Number [facility] [place] [address] * Protime-INR (04/16/2025 9:58 AM CDT) PT 11.6 10.2 - 13.5 sec INR 1.03 0.90 - 1.20 [facility] Comment: Interpretive data Oral anticoagulant therapeutic ranges: Venous thromboembolism prophylaxis or treatment: 2.0-3.0 CARDIOLOGY Standard range: 2.0-3.0 High-intensity range: 2.5-3.5 Refer to indication-specific guidelines for appropriate target ranges for prosthetic heart valve replacement. Current interpretive data was last revised on 2019. Blood 04/16/2025 9:58 AM CDT 04/16/2025 10:09 AM CDT Result [facility] Trino Loza MD LAB BLOOD ORDERABLES Final Result Performing Organization Address [facility] de Phone Number [facility] [place] [address] * MICHELLE ab ql w/rflx to MICHELLE qn (04/16/2025 9:46 AM CDT) MICHELLE Negative Comment: Interpretive Data Normal range for MICHELLE Qualitative Antibody = Negative. 1. MICHELLE is performed using indirect immunofluorescence against HEp-2 cells 2. MICHELLE titers are performed on all positive qualitative results. 3. A significantly positive MICHELLE result is defined as a positive nuclear fluorescence at a titer of 1:80 or greater. 4. 15% of normal people above age 65 have significantly positive MICHELLE results. 5% or less of normal people age 65 or under have significantly positive MICHELLE results. Current interpretive data was last revised on 2020. Blood 04/16/2025 9:46 AM CDT 04/16/2025 10:00 AM CDT Trino Loza MD LAB BLOOD ORDERABLES Final Result Performing Organization Address City/[facility]/ZIP Co de Phone [place] [address] * Allergic bronchopulmonary aspergillosis cascade (04/16/2025 9:46 AM CDT) IgE 9 <=100 IUnits/mL Blood 04/16/2025 9:46 AM CDT 04/16/2025 10:00 AM CDT Trino Loza MD LAB BLOOD ORDERABLES Final Result Performing Organization Address [facility] de [place] [address] * [id number] proteotype (04/16/2025 9:46 AM CDT) alpha-1 antitrypsin 140 100 - 190 mg/dL [facility] Comment: ADDITIONAL INFORMATION Method: Nephelometry Test Performed by: [facility] [place] [address] Cloth Picker: Ashleigh Liz Ph.D.; CLIA# [id number] proteotype S/Z See Footnote [facility] Comment: S Mutation: Negative Z Mutation: Negative Results most consistent with MM phenotype. ADDITIONAL INFORMATION This test was developed and its performance characteristics determined by [facility] in a manner consistent with CLIA requirements. This test has not been cleared or approved by the U.S. Food and Drug Administration. Blood 04/16/2025 9:46 AM CDT 04/16/2025 10:43 AM CDT Trino Loza MD LAB BLOOD ORDERABLES Final Result Performing Organization Address City/[facility] Co de Phone Number [facility] [place] [address] [facility] * Immunoglobulin IgG subclasses (04/16/2025 9:46 AM CDT) IgG 978 767 - 1590 mg/dL [facility] IgG, fraction 1 587 341 - 894 mg/dL [facility] IgG, fraction 2 192 171 - 632 mg/dL [facility] IgG, fraction 3 47.8 18.4 - 106.0 mg/dL [facility] IgG, fraction 4 65.2 2.4 - 121.0 mg/dL [facility] Comment: Test Performed by: [place] [address] Cloth Picker: Ashleigh Liz Ph.D.; CLIA# [id number] Blood 04/16/2025 9:46 AM CDT 04/16/2025 10:43 AM CDT Trino Loza MD LAB BLOOD ORDERABLES Final Result Performing Organization Address [facility] Co de Phone Number [facility] Department [place] [address] [facility] * ONI ab eval w/reflex (04/16/2025 9:46 AM CDT) ONI ab Negative Negative Comment: Interpretive Data Positive Screens will be reflexed to specific testing for Antibodies against the following antigens: Mindy-1 Ab, AUDIO/VISUAL MANAGER Ab, Scl-70 Ab, Tirado Ab, SS-A/Ro Ab, and SS- B/La Ab. Further testing for dsDNA, Centromere, or Ribosomal P antibodies is suggested in patient with a positive screen and negative specific antibodies. Current interpretive data was last revised on 2022. Blood 04/16/2025 9:46 AM CDT 04/16/2025 10:00 AM CDT Trino Loza MD LAB BLOOD ORDERABLES Final Result Performing Organization Address [facility] de Phone Number [facility] [employer] [place] [address] * Anti-Neutrophilic Cytoplasmic Antibody (ANCA) with Reflex to MPO and PR3 Abs (04/16/2025 9:46 AM CDT) ANCA Negative Blood 04/16/2025 9:46 AM CDT 04/16/2025 10:00 AM CDT Trino Loza MD LAB BLOOD ORDERABLES Final Result Performing Organization Address [facility] Phone Number [facility] [employer] [place] [address] * Cyclic citrul peptide antibody, IgG (04/16/2025 9:46 AM CDT) CCP Ab <0.5 <=2.9 units/mL Comment: Interpretive data Negative: <3 units/mL Positive: > or equal to 3 units/mL Current interpretive data was last revised on 2016. Blood 04/16/2025 9:46 AM CDT 04/16/2025 10:00 AM CDT Trino Loza MD LAB BLOOD ORDERABLES Final Result Performing Organization Address [facility] [place] [address] * Rheumatoid factor (04/16/2025 9:46 AM CDT) Rheumatoid factor, quant <10.0 0.1 - 15.0 IUnits/mL Blood 04/16/2025 9:46 AM CDT 04/16/2025 10:00 AM CDT us Trino Loza MD LAB BLOOD ORDERABLES Final Result Performing Organization Address [facility] de Phone Number [facility] [place] [address] * IgA (04/16/2025 9:46 AM CDT) Immunoglobulin A 155 70 - 400 mg/dL Blood 04/16/2025 9:46 AM CDT 04/16/2025 10:00 AM CDT us Trino Loza MD LAB BLOOD ORDERABLES Final Result Performing Organization Address [facility] de Phone Number [facility] [place] [address] * IgM (04/16/2025 9:46 AM CDT) Immunoglobulin M 76 40 - 230 mg/dL Blood 04/16/2025 9:46 AM CDT 04/16/2025 10:00 AM CDT us Trino Loza MD LAB BLOOD ORDERABLES Final Result Performing Organization Address [facility] [place] [address] * IgG (04/16/2025 9:46 AM CDT) Immunoglobulin G 1,061 700 - 1,600 mg/dL Blood 04/16/2025 9:46 AM CDT 04/16/2025 10:00 AM CDT us Trino Loza MD LAB BLOOD ORDERABLES Final Result [facility] Department [place] [address] * MRA Chest W WO Contrast (03/28/2025 11:07 AM CDT) Anatomical Region Laterality Modality Body N/A Magnetic Resonan ce 03/30/2025 10:1 9 AM CDT Impressions 03/30/2025 11:45 AM CDT 1. Right anterior mediastinal mass, which is [...] Mildly dilated ascending aorta at 42 mm. Dictated by: Hank Gallardo MD The radiology attending physician has personally reviewed this study, and had reviewed and/or edited this written report and agrees with it. Electronically signed by: Sean Lozada M.D. Narrative 03/30/2025 11:45 AM CDT EXAMINATION: MAGNETIC RESONANCE ANGIOGRAPHY OF THE CHEST WITH AND WITHOUT CONTRAST HISTORY: 74-year-old female with a history of a anterior mediastinal mass, currently undergoing evaluation for biopsy. This exam was requested to evaluate aortic involvement. TECHNIQUE: Magnetic resonance angiography of the chest was performed prior to and following the administration of intravenous contrast. Post processed images were obtained on the scanner and the images were reviewed on a dedicated 3D workstation. Protocol: MRA chest Contrast: Multihance (gadobenate) 12 mL COMPARISON: 01/13/2025, 03/27/2025 FINDINGS: Again seen is a anterior mediastinal [...] thoracic aorta: 27 mm x 27 mm Procedure Note Neville, Sean Singleton MD - 03/30/2025 EXAMINATION: MAGNETIC RESONANCE ANGIOGRAPHY OF THE CHEST WITH AND WITHOUT CONTRAST HISTORY: 74-year-old female with a history of a anterior mediastinal mass, currently undergoing evaluation for biopsy. This exam was requested to evaluate aortic involvement. TECHNIQUE: Magnetic resonance angiography of the chest was performed prior to and following the administration of intravenous contrast. Post processed images were obtained on the scanner and the images were reviewed on a dedicated 3D workstation. Protocol: MRA chest Contrast: Multihance (gadobenate) 12 mL COMPARISON: 01/13/2025, 03/27/2025 FINDINGS: Again seen is a anterior mediastinal [...] Mildly dilated ascending aorta at 42 mm. Dictated by: Hank Gallardo MD The radiology attending physician has personally reviewed this study, and had reviewed and/or edited this written report and agrees with it. Electronically signed by: Sean Lozada M.D. us Trino Loza MD IM MRI PROCEDURES F inal Result * PET/CT FDG Skull to Thigh (03/27/2025 12:46 PM CDT) Anatomical Region Laterality Modality N/A Positron Emissio n Tomography (PET) 03/27/2025 1:58 PM CDT Impressions 03/27/2025 2:08 PM CDT 1. Markedly avid heterogeneous mass in the anterior mediastinum abutting the anterior aortic wall compatible with infectious / inflammatory (such as fibrosing mediastinitis) etiology vs. malignant process such as lymphoma. Recommend thoracic MRI for further evaluation. 2. Bilateral moderately avid tree-in-bud nodularity, favored to represent an infectious or inflammatory etiology. 3. Tracer uptake in the bilateral L3-L5 facet/neural foramina that may represent a facet arthropathy versus additional infectious or inflammatory etiologies. May consider lumbar spine MRI for further characterization if clinically indicated. Communicated findings with Dr. Beto Loza via phone at [phone]. Dictated by: Graeme Ruelas M.D. The radiology attending physician has personally reviewed this study, and had reviewed and/or edited this written report and agrees with it. Electronically signed by: Dillon Parker MD Narrative 03/27/2025 2:08 PM CDT EXAMINATION: TUMOR FDG-PET/CT IMAGING DATE OF STUDY: 03/27/2025 SCANNER: [employer] ([email or web address]). This is a high-resolution scanner, which can result in higher SUVs (and even detection of previously unrecognized small lesions) compared to older scanners. RADIOPHARMACEUTICAL: 7.5 mCi F-18 Fluorodeoxyglucose (FDG) i.v. Injection site: Left antecubital HISTORY: 74-year-old female with recent hemoptysis presenting with a mediastinal mass. The study is requested for diagnosis. Initial treatment strategy. TECHNIQUE: The patient's fasting blood glucose level, measured by glucometer before injection of FDG, was 93 mg/dL. After intravenous administration of FDG, noncontrast CT images were obtained for attenuation correction and for fusion with emission PET images to allow for anatomical localization of PET findings. Emission PET images were then obtained. The study was interpreted on the [employer] workstation. The mean liver SUV (reported for quality control specialist purposes) is 2.3. The total scanned area was skull vertex to proximal thighs. Images of the body were obtained starting 74 minutes after injection of tracer. All reported SUVs are maximum SUVs, unless otherwise specified. COMPARISON: CT chest on 01/13/2025 DESCRIPTORS OF LESION FDG AVIDITY: Minimal: <= blood pool Mild: > blood pool and <= liver Moderate: > liver and <= 2x SUVmax liver Moderate to marked: >2x SUVmax liver and <= 3x SUVmax liver Marked: > 3x SUVmax liver FINDINGS: Markedly avid necrotic mass abutting the anterior aortic wall with possible infiltration, loss of the fat plane, measuring 4.5 x 3.8 cm with SUV of 11.4 on image 129. The mass also has hyperdense regions suggestive of prior bleeding. Moderately avid bilateral tree and bud nodularity, most prominent in the right middle lobe. L3-L5 facet/neural foramina uptake that is moderate to marked in nature. Thyromegaly without significant uptake. Additional CT findings: Right lens replacement. Dental restorations. Coronary artery calcifications. Small pericardial effusion. Atherosclerotic calcifications of the abdominal aorta and its branches. Colonic diverticulosis. Degenerative changes of the multilevel spine. Procedure Note Dillon Parker MD - 03/27/2025 EXAMINATION: TUMOR FDG-PET/CT IMAGING DATE OF STUDY: 03/27/2025 SCANNER: [facility] Uber[employer] ([email or web address]). This is a high-resolution scanner, which can result in higher SUVs (and even detection of previously unrecognized small lesions) compared to older scanners. RADIOPHARMACEUTICAL: 7.5 mCi F-18 Fluorodeoxyglucose (FDG) i.v. Injection site: Left antecubital HISTORY: 74-year-old female with recent hemoptysis presenting with a mediastinal mass. The study is requested for diagnosis. Initial treatment strategy. TECHNIQUE: The patient's fasting blood glucose level, measured by glucometer before injection of FDG, was 93 mg/dL. After intravenous administration of FDG, noncontrast CT images were obtained for attenuation correction and for fusion with emission PET images to allow for anatomical localization of PET findings. Emission PET images were then obtained. The study was interpreted on the [employer] workstation. The mean liver SUV (reported for quality control specialist purposes) is 2.3. The total scanned area was skull vertex to proximal thighs. Images of the body were obtained starting 74 minutes after injection of tracer. All reported SUVs are maximum SUVs, unless otherwise specified. COMPARISON: CT chest on 01/13/2025 DESCRIPTORS OF LESION FDG AVIDITY: Minimal: <= blood pool Mild: > blood pool and <= liver Moderate: > liver and <= 2x SUVmax liver Moderate to marked: >2x SUVmax liver and <= 3x SUVmax liver Marked: > 3x SUVmax liver FINDINGS: Markedly avid necrotic mass abutting the anterior aortic wall with possible infiltration, loss of the fat plane, measuring 4.5 x 3.8 cm with SUV of 11.4 on image 129. The mass also has hyperdense regions suggestive of prior bleeding. Moderately avid bilateral tree and bud nodularity, most prominent in the right middle lobe. L3-L5 facet/neural foramina uptake that is moderate to marked in nature. Thyromegaly without significant uptake. Additional CT findings: Right lens replacement. Dental restorations. Coronary artery calcifications. Small pericardial effusion. Atherosclerotic calcifications of the abdominal aorta and its branches. Colonic diverticulosis. Degenerative changes of the multilevel spine. IMPRESSION: 1. Markedly avid heterogeneous mass in the anterior mediastinum abutting the anterior aortic wall compatible with infectious / inflammatory (such as fibrosing mediastinitis) etiology vs. malignant process such as lymphoma. Recommend thoracic MRI for further evaluation. 2. Bilateral moderately avid tree-in-bud nodularity, favored to represent an infectious or inflammatory etiology. 3. Tracer uptake in the bilateral L3-L5 facet/neural foramina that may represent a facet arthropathy versus additional infectious or inflammatory etiologies. May consider lumbar spine MRI for further characterization if clinically indicated. Communicated findings with Dr. Beto Loza via phone at [phone]. Dictated by: Graeme Ruelas M.D. The radiology attending physician has personally reviewed this study, and had reviewed and/or edited this written report and agrees with it. Electronically signed by: Dillon Parker MD Trino Loza MD IMG PET PROCEDURES F inal Result * Histoplasma Antibody Blood (03/19/2025 11:14 AM CDT) Histoplasma Ab, yeast CF Negative Negative [place] [facility] Histoplasma Ab, Immunodiffusion Negative Negative ELIUD ROBLEDOCH Comment: A negative complement fixation and immunodiffusion (CF/ID) result does not exclude the diagnosis of histoplasmosis. Repeat testing by CF/ID in 1-2 weeks if clinically indicated. Test Performed by: [place] [address] Cloth Picker: Ashleigh Liz Ph.D.; CLIA# [id number] Blood 03/19/2025 11:1 4 AM CDT 03/19/2025 11:15 AM CDT Trino Loza MD LAB MICROBIOLOGY - G ENERAL ORDERABLES Final Result ELIUD KWAKUWCH [id number] [facility]. Department [place] [address] [place] [facility] * Coccidioides antibody screen w/reflex Blood (03/19/2025 11:03 AM CDT) [facility] Coccidioides ab screen, ser Negative Negative [facility] Comment: Repeat testing on a new sample in 2-3 weeks if clinically indicated. ADDITIONAL INFORMATION This test has been modified from the health and wellness coordinator's instructions. Its performance characteristics were determined by [facility] in a manner consistent with CLIA requirements. This test has not been cleared or approved by the U.S. Food and Drug Administration. Test Performed by: [facility] [address] [place] [address] Cloth Picker: Ashleigh Liz Ph.D.; CLIA# [id number] Blood 03/19/2025 11:0 3 AM CDT 03/19/2025 11:15 AM CDT Trino Loza MD LAB MICROBIOLOGY - G ENERAL ORDERABLES Final Result Performing Organization Address City/[facility] Co de Phone Number ELIUD BJWCH [id number] [employer] [address] [place] [facility] * Allergic bronchopulmonary aspergillosis cascade (03/19/2025 11:03 AM CDT) [facility] IgE 7 <=100 IUnits/mL Comment:Testing performed by : [facility], [address] [place]., [address] Blood 03/19/2025 11:0 3 AM CDT 03/19/2025 2:06 PM CDT Trino Loza MD LAB BLOOD ORDERABLES Final Result Performing Organization Address City/[facility]/ZIP Co de Phone Number ELIUD BJWCH [phone] [employer] [facility] [employer] [place] [address] * T-SPOT.TB Blood (03/19/2025 11:03 AM CDT) [facility] T-SPOT.TB Negative SeeBelow Comment: Normal Value: Negative A negative test result does not exclude the possibility of exposure to or infection with Mycobacterium tuberculosis (M. tuberculosis). Patients with recent exposure to TB infected individuals exhibiting a negative T-SPOT.TB result should be considered for retesting within 6 weeks or if other relevant clinical symptoms indicate. Results from T-SPOT.TB testing must be used in conjunction with each individual's epidemiological history, current medical status, and results of other diagnostic evaluations. The T-SPOT.TB test is qualitative and results are reported as positive, borderline or negative, given that the test controls perform as expected. In line with the Centers for Disease Control and Prevention's 2010 recommendation to report quantitative measurements alongside the qualitative result, the laboratory provides spot counts for informational purposes only. The T-SPOT.TB test should not be interpreted as a quantitative test. T-SPOT.TB Panel A Spot Count 1 CERNER KWAKUWCH T-SPOT.TB Panel B Spot Count 0 CERNER BJWCH T-SPOT.TB Negative Control Passed CERNER BJWCH T-SPOT.TB Positive Control Passed CERNER BJWCH Comment: Test Performed at: [facility], [facility] [address] [place] [id number] NATALIA SYKES,PHD Blood 03/19/2025 11:0 3 AM CDT 03/19/2025 11:15 AM CDT Trino Loza MD LAB MICROBIOLOGY - G ENERAL ORDERABLES Final Result Performing Organization Address City/State/[facility] Co id Phone Number ELIUD AMESWCH [phone] [facility]. Department of [employer] [place] [address] * Blastomyces antibody, EIA, serum Blood (03/19/2025 11:03 AM CDT) [facility] Blastomyces Antibody Negative Negative [facility] Comment: A single negative result does not exclude the diagnosis of blastomycosis. Repeat testing on a new sample in 7-14 days if clinically indicated. Test Performed by: [facility] [address] [place] [id number] Cloth Picker: Ashleigh Liz Ph.D.; CLIA# [id number] Blood 03/19/2025 11:0 3 AM CDT 03/19/2025 11:15 AM CDT Trino Loza MD LAB MICROBIOLOGY - G ENERAL ORDERABLES Final Result Performing Organization Address [facility] [place] [facility] Co de Phone Number ELIUD BJWCH [phone] [facility] [employer] [place] [address] [place] [facility] * Cryptococcal Antigen, Serum Blood (03/19/2025 11:03 AM CDT) Cryptococcus ag, Serum Negative Negative Comment:Testing performed by : [facility], [address] [place] [address], [place]., [address] Blood 03/19/2025 11:0 3 AM CDT 03/19/2025 3:07 PM CDT Trino Loza MD LAB MICROBIOLOGY - G ENERAL ORDERABLES Final Result Performing Organization Address [facility] [place] [facility] de Phone Number [facility] BJWCH [phone] [facility] [employer] [place] [address] * Aspergillus galactomannan antigen Blood (03/19/2025 11:03 AM CDT) Aspergillus galactomannan Ag <0.500 <0.5 Index [facility] Comment: ADDITIONAL INFORMATION This is a qualitative test and the resulted index value is not indicative of disease severity. Serial testing is recommended for patients at high risk for invasive aspergillosis. This assay was performed using the FDA-cleared [employer] Platelia Aspergillus Galactomannan EIA. Test Performed by: [address] [address] Cloth Picker: Ashleigh Liz Ph.D.; CLIA# [id number] Blood 03/19/2025 11:0 3 AM CDT 03/19/2025 11:15 AM CDT Trino Loza MD LAB MICROBIOLOGY - G ENERAL ORDERABLES Final Result ELIUD BJWCH [id number] [facility]. Department [place] [address] [place] [facility] * XR Chest Pa Lateral 2 Views (03/02/2025 11:42 AM CDT) Anatomical Region Laterality Modality Body, Chest N/A Computed Radiogr aphy 03/02/2025 12:1 7 PM CDT Impressions 03/02/2025 12:17 PM CDT Comparison 01/05/2025. Apparent prominence of the ascending aorta on the prior examination corresponds to partially calcified infiltrative soft tissue mass in the right anterior mediastinum on computed tomographic examination 01/13/2025. Clustered nodular opacities in the peripheral right midlung correspond to findings on computed tomographic examination 01/13/2025. More accurate evaluation of the above described findings can be obtained with repeat computed tomography. Focal lingular opacity on the prior examination has resolved and may have represented pneumonia. No pneumothorax seen. No pleural effusion seen. Heart size remains within normal limits. Electronically signed by: Tomy Helms M.D. Narrative 03/02/2025 12:17 PM CDT EXAMINATION: 2 view chest radiograph Procedure Note Tomy Helms MD - 03/02/2025 EXAMINATION: 2 view chest radiograph IMPRESSION: Comparison 01/05/2025. Apparent prominence of the ascending aorta on the prior examination corresponds to partially calcified infiltrative soft tissue mass in the right anterior mediastinum on computed tomographic examination 01/13/2025. Clustered nodular opacities in the peripheral right midlung correspond to findings on computed tomographic examination 01/13/2025. More accurate evaluation of the above described findings can be obtained with repeat computed tomography. Focal lingular opacity on the prior examination has resolved and may have represented pneumonia. No pneumothorax seen. No pleural effusion seen. Heart size remains within normal limits. Electronically signed by: Tomy Helms M.D. Trino Loza MD IMG XR PROCEDURES Fi nal Result * Pulmonary Function Test - (03/02/2025 11:29 AM CDT) FVC PRE 2.36 L [facility] FVC %PRE PRED 90 % [facility] FVC POST 2.34 L [facility] FVC %POST PRED 89 % [facility] FEV1 PRE 1.76 L [facility] FEV1 %PRE PRED 87 % [facility] FEV1 POST 1.87 L [facility] FEV1 %POST PRED 92 % [facility] FEV1/FVC PRE 74.6 % [facility] FEV1/FVC POST 79.6 % [facility] FRC PL PRE 2.93 L [facility] FRC PL %PRE PRED 102 % [facility] RV PRE 1.97 L [facility] RV %PRE PRED 87 % [facility] TLC PRE 4.48 L [facility] TLC %PRE PRED 89 % [facility] DLCO PRE 16.3 ml/min/mmH g [facility] DLCO %PRE PRED 88 % [facility] FIO2 % 21.00 % [facility] PaO2 84.0 mmHg [facility] PaCO2 42.0 mmHg [facility] pH 7.43 [facility] A-aDO2 POC 13.0 mmHg [facility] METHGB % 0.6 % [facility] COHb POC 1.2 % [facility] HCO3 27.9 mEq/L [facility] Anatomical Region Laterality Modality PFT 03/02/2025 10:3 7 AM CDT Narrative 03/02/2025 1:22 PM CDT Table formatting from the original result was not included. [facility] Division of Pulmonary & Critical Care Medicine [address] [place] [address]; [place] [address]; [place] [address]; [phone] Pulmonary Function Laboratory Pulmonary Stress Test Simple/Oxygen Assessment Patient: Lashell Nieto Date: 03/02/2025 : 1950 Ht: 63.5 IN Wt: 143 LBS Time (min) Distance (ft)/ Avery O2 L/M SpO2 HR Ra* BP FEV1 % Pred Rest: RA 99 75 0 104/70 1.76 87 % Walk/Bike: 1 RA 100 79 0 2 RA 98 84 0 3 RA 100 87 0 4 RA 97 87 0 5 RA 98 86 0 6 min 0 sec RA 98 87 0 Recovery: 1 RA 99 74 0 116/66 1.74 86% 3 RA 99 70 0 *Ra rate of perceived exertion (1-10 dyspnea scale) Marco, CHEST 2003; [id number] Walk Test Summary: Six Minute Walk Distance: 1275 ft Six-minute Walk Work [distance (m) x body wt (kg)]: 34287 kg.m (normal >60,000kg.m) Oxygen required to maintain SpO2 greater than 90% during six minutes of walkin L/M Comments: O2A Interpretation: Breathing room air, SpO2 is normal at rest and during exercise sufficient to increase pulse, SpO2 is stable. On this basis, SpO2 is adequate at rest breathing room air and while walking breathing room air. This level of exercise is associated with no significant change of FEV1. By signing this report, the attending pulmonary physician certifies that he/she has personally reviewed and interpreted the graphic and numerical data associated with this pulmonary function study and has reviewed and /or edited a preliminary draft report and agrees with the written final report. PFT performed at:[facility] Procedure:->Oxygen Assessment Titration Procedure:->Lung Volumes Procedure:->Spirometry Procedure:->Spirometry with Bronchodilator Procedure:->DLCO Procedure:->ABG with Co-oximetry DLCO:->Spirometry Air Type:->Room Air Standard:->Plethysmography w/airway resistance, nitrogen washout Pulmonary Function Test Interpretation SPIROMETRY: Spirometry is normal. There is no significant improvement after inhaling a single dose of albuterol. The inspiratory loop is normal. LUNG VOLUMES: TLC measured by plethysmography is normal. DLCO: The diffusing capacity corrected for hemoglobin level (DLCO ADJ) is within normal limits. ARTERIAL BLOOD GAS: The pH and pCO2 are normal. The arterial pO2 is normal at rest. O2 saturation measured by oximetry is normal at rest. Impression: There is no ventilatory defect. There is no impairment of alveolar gas exchange by DLCO. There is no impairment of gas exchange at rest by ABG. The attending pulmonary physician certifies a physician presence in the [facility] during the administration of aerosolized bronchodilator. The attending pulmonary physician certifies that he/she has reviewed and interpreted the graphic and numerical data of this pulmonary function study and agrees with the written final report. The lower limit of normal for PaO2 and %HbO2 is age dependent. However, the [facility] Pulmonary Function Laboratory defines hypoxemia as a PaO2 <56 mm Hg or a %HbO2 <89%. Starting on June of 2024 the [facility] Pulmonary Function Laboratory utilizes race neutral GLI Global normative equations. Trino Loza MD PFT ORDERABLES Gloria l Result * Screening Mammogram Bilateral W Ken (12/03/2024 9:45 AM CDT) Anatomical Region Laterality Modality Breast Bilateral Mammography Impressions 12/04/2024 4:18 PM CDT Bilateral No evidence of malignancy in either breast. OVERALL BI-RADS FINAL ASSESSMENT: 2 - Benign RECOMMENDATION: Recommend bilateral annual screening mammography. Narrative 12/04/2024 4:18 PM CDT EXAMINATION: Screening Mammogram Bilateral W Ken: 12/03/2024 COMPARISON: Relevant prior studies available at the time of interpretation were reviewed. TECHNIQUE: Mammography was performed with 2D and digital breast tomosynthesis (DBT) images. CAD was utilized. BREAST PARENCHYMAL COMPOSITION: The breasts are heterogeneously dense, which may obscure small masses. FINDINGS: Bilateral There is no suspicious mass, calcification, or architectural distortion in either breast. Self Screening Mammogram IMG MAMMO PROCEDURES Fi nal Result * COLONOSCOPY (03/28/2023 10:06 AM CDT) Anatomical Region Laterality Modality Other Narrative Procedure Note Tania Oliveira MD - 03/28/2023 10:06 AM CDT [facility] Patient Name: Lashell Nieto Procedure Date: 03/28/2023 10:06AM Date of : 1950 Admit Type: Outpatient Age: 72 Gender: Female Attending MD: Tania Oliveira M.D. Room: [facility] ENDOSCOPY ROOM 9 Note Status: Finalized Procedure: Colonoscopy Indications: High risk colon cancer surveillance: Personalhistory of colonic polyps Referring MD: Jeffry Horton M.D. Providers: Tania Oliveira M.D. Medicines: Monitored Anesthesia Care Complications: No immediate complications. Estimated Blood Loss: Estimated blood loss: none. Procedure: Pre-Anesthesia Assessment: - Prior to the procedure, a History and Physicalwas performed, and patient medications, allergies and sensitivities were reviewed. The patient'stolerance of previous anesthesia was reviewed. - The risks and benefits of the procedure and the sedation options and risks were discussed with the patient. All questions were answered and informed consent was obtained. - Patient identification and proposed procedurewere verified prior to the procedure by the physician,the nurse and the anesthesiologist. The procedure was verified in the procedure room. - Immediately prior to administration ofmedications, the patient was re-assessed for adequacy to receive sedatives. The benefits, risks and alternatives of theprocedure and sedation were discussed and informed consentwas obtained. All questions were answered. Please referto the signed informed consent document in the medical record. The scope was passed under direct vision.The CF [id number] endoscope was introduced through the anus and advanced to the cecum, identified by appendiceal orifice and ileocecal valve. The colonoscopy was performed without difficulty. The patient tolerated the procedure well. The qualityof the bowel preparation was evaluated using the BBPS ([place] Bowel Preparation Scale) with scores of:Right Colon = 3, Transverse Colon = 3 and Left Colon = 3 (entire mucosa seen well with no residual staining, small fragments of stool or opaque liquid). Thetotal BBPS score equals 9. The quality of the bowel preparation was good. The bowel preparation usedwas GoLYTELY via split dose instruction. Findings: The perianal and digital rectal examinations were normal. A 3 mm polyp was found in the ascending colon. The polyp was sessile. The polyp was removed with a jumbo cold forceps. Resection andretrieval were complete. Verification of patient identification for thespecimen was done. A 3 mm polyp was found in the sigmoid colon. The polyp was sessile.The polyp was removed with a jumbo cold forceps. Resection and retrieval were complete. Verification of patient identification for thespecimen was done. Multiple small and large-mouthed diverticula were found in the entire colon. The terminal ileum appeared normal. Impression: - One 3 mm polyp in the ascending colon, removedwith a jumbo cold forceps. Resected and retrieved. - One 3 mm polyp in the sigmoid colon, removed witha jumbo cold forceps. Resected and retrieved. - Diverticulosis in the entire examined colon. - The examined portion of the ileum was normal. Recommendation: - The patient will be observed post-procedure,until all discharge criteria are met. - Advance diet as tolerated today. - Await pathology results. - Repeat colonoscopy in 5 years for surveillance. - Clinic visit with me in 4-6 months - In the unusual situation that you developabdominal, bleeding or other significant problems in the days following this procedure please call [phone]. After hours and evenings please call [phone] speak to the GI fellow continuity manager. Please tell thefellow that Dr. Rosariod your procedure and that you were instructed to have the fellow call me or the physician covering for me to discuss the managementof your condition. If you have an urgent problem,please go to the nearest emergency room and have the ER doctor call my office during the day or the GIfellow after hours and weekends to arrange admission or transfer to our facility. Please bring this report with you if you go to the emergency room. Electronically signed by Tania Oliveira MD Tania Oliveira M.D. 03/28/2023 11:04:18 AM . Number of Addenda: 0 Note Initiated On: 03/28/2023 10:06 AM Recognized by the [place] [employer] for promoting quality in endoscopy Tania Oliveira MD ENDOSCOPY PROCEDURES Final Result * Dexa Axial Skeleton Bone Density 1 or 2 Site (03/21/2022 10:36 AM CDT) Anatomical Region Laterality Modality Body N/A Digital Radiogra phy 03/21/2022 10:5 1 AM CDT Impressions 03/21/2022 11:52 AM CDT 1. The bone mineral density of the lumbar spine is normal. There has been a statistically significant decrease in bone mineral density since the baseline examination of 03/10/2020. Diffuse degenerative changes are present in the lumbar spine, causing an overestimate of lumbar spine bone density. 2. The bone mineral density of the left femoral neck is mildly decreased. There has been no significant change in bone mineral density since the baseline examination of 03/10/2020. 3. The bone mineral density of the left total hip is normal. There has been a statistically significant decrease in bone mineral density since the baseline examination of 03/10/2020. 4. Overall, the above findings are diagnostic of low bone mass (osteopenia) by WHO criteria. 5. Based on the FRAX fracture risk model, the 10-year probability for major osteoporotic fracture is 5.4% and that for hip fracture is 0.8%. This 10-year fracture risk estimate was calculated using the risk factors noted in the history above, along with the femoral neck bone density. FRAX is intended to help guide treatment decisions in men over age 50 and postmenopausal women with low bone mass (osteopenia). The National Osteoporosis Foundation (NOF) recommends that FDA-approved medical therapies be considered in postmenopausal women and men age 50 years and older with osteoporosis and those with low bone mass whose 10-year fracture probability by FRAX is >= 20% for major osteoporotic fracture or >= 3% for hip fracture. However, all treatment decisions require clinical judgment and consideration of individual patient factors, including patient preferences, comorbidities, previous drug use, risk factors not captured in the FRAX model (e.g., frailty, falls, vitamin D deficiency, increased bone turnover, interval significant decline in bone density) and possible under- or overestimation of fracture risk by FRAX. General comments regarding interpretation of bone density measurements: A) In children, premenopausal woman and males under age 50 not at increased risk for fractures only Z-scores, not T-scores are used to indicate risk. A Z-score above -2.0 is defined as within the expected range for age and Z-score at or less than -2.0 is below the expected range for age. A Z-score below the expected range for age in a patient with recent fractures and/or chronic corticosteroid treatment is consistent with a diagnosis of osteoporosis. B) In post menopausal women and males over 50, comparison of the measured bone mineral density with the average value in young normal subjects (the T-score) has been found to be useful in assessing fracture risk. Fracture risk approximately doubles for each 1.0 standard deviation (SD) in individual's hip or spine bone mineral density is below the average value of young normal subjects. The World Health Organization (WHO) has defined T-scores of -1.0 to -2.5 as diagnostic of low bone mass (OSTEOPENIA), and T-scores of -2.5 or lower to be diagnostic of OSTEOPOROSIS, based on the site of lowest bone density. Note that there will be a change in reporting format and reference databases as patients move from the younger population (group A) to the older population (group B) The National Osteoporosis Foundation (www.nof.org) recommends adequate intake of calcium and vitamin D and regular weight-bearing exercise in all patients. They recommend pharmacologic treatment in postmenopausal women and men age 50 and older presenting with any of the followin) Osteoporosis, after appropriate evaluation to exclude secondary causes. 2) A hip or vertebral (clinical or radiographic) fracture, regardless of the bone density. 3) Low bone mass (Osteopenia) and one or more of: other prior fractures, secondary causes associated with high risk of fracture (such as glucocorticoid use or total immobilization), or computed high risk of fracture (10-yr probability of hip fracture >= 3% or a 10-yr probability of any major osteoporosis-related fracture >= 20% based on the U.S.-adapted WHO algorithm), available at http://www.shef.ac.uk/FRAX). Dictated by: Renzo Tim M.D. The radiology attending physician has personally reviewed this study, and had reviewed and/or edited this written report and agrees with it. Electronically signed by: Bill Alba MD, Ph.D Narrative 03/21/2022 11:52 AM CDT BONE DENSITOMETRY OF THE SPINE AND HIP DATE OF STUDY: 03/21/2022 HISTORY: 71-year-old postmenopausal woman with cessation of menstruation at age 50, triple negative left breast cancer in 2015, metatarsal fracture in 2014, and osteopenia on bone densitometry dated 03/10/2020. She is being treated with vitamin D supplementation. Evaluate bone mineral density. Additional risk factors for fracture: none. FINDINGS (SPINE): The bone mineral density of L1, L3 was assessed by dual-energy x-ray absorptiometry. The average bone mineral density within this region is 1.153 gm/sq-cm. This is 3.4 standard deviations above the mean of the average bone mineral density for age- and gender-matched subjects (the Z-score). It is 1.3 standard deviations above the mean peak bone mineral density in young adults (the T-score). L2 and L4 were excluded from analysis due to T score differences likely related to degenerative changes. FINDINGS (FEMORAL NECK): The bone mineral density of the left femoral neck was assessed by dual-energy x-ray absorptiometry. The average bone mineral density within the femoral neck region is 0.688 gm/sq-cm. This is 0.4 standard deviations above the mean of the average bone mineral density for age- and gender-matched subjects (the Z-score). It is 1.4 standard deviations below the mean peak bone mineral density in young adults (the T-score). FINDINGS (TOTAL HIP): The bone mineral density of the left hip was assessed by dual-energy x-ray absorptiometry. The average bone mineral density within the total hip region is 0.820 gm/sq-cm. This is 0.6 standard deviations above the mean of the average bone mineral density for age- and gender-matched subjects (the Z-score). It is 1.0 standard deviations below the mean peak bone mineral density in young adults (the T-score). SUMMARY OF CURRENT RESULTS: Region BMD T-score Z-score AP Spine (L1, L3) 1.153 1.3 3.4 Femoral Neck (Left) 0.688 -1.4 0.4 Total Hip (Left) 0.820 -1.0 0.6 COMPARISON WITH PREVIOUS RESULTS Region Age BMD T-score BMD Change BMD Change Exam Date g/cm2 vs Baseline vs Previous AP Spine (L1,L3) 03/21/2022 71 1.153 1.3 -2.4%* -2.4%* 03/10/2020 69 1.181 1.5 Femoral Neck(Left) 03/21/2022 71 0.688 -1.4 -1.9% -1.9% 03/10/2020 69 0.702 -1.3 Total Hip(Left) 03/21/2022 71 0.820 -1.0 -3.2%* -3.2%* 03/10/2020 69 0.847 -0.8 *Denotes significance at 95% confidence level Procedure Note Bill Ortega MD PhD - 03/21/2022 BONE DENSITOMETRY OF THE SPINE AND HIP DATE OF STUDY: 03/21/2022 HISTORY: 71-year-old postmenopausal woman with cessation of menstruation at age 50, triple negative left breast cancer in 2015, metatarsal fracture in 2014, and osteopenia on bone densitometry dated 03/10/2020. She is being treated with vitamin D supplementation. Evaluate bone mineral density. Additional risk factors for fracture: none. FINDINGS (SPINE): The bone mineral density of L1, L3 was assessed by dual-energy x-ray absorptiometry. The average bone mineral density within this region is 1.153 gm/sq-cm. This is 3.4 standard deviations above the mean of the average bone mineral density for age- and gender-matched subjects (the Z-score). It is 1.3 standard deviations above the mean peak bone mineral density in young adults (the T-score). L2 and L4 were excluded from analysis due to T score differences likely related to degenerative changes. FINDINGS (FEMORAL NECK): The bone mineral density of the left femoral neck was assessed by dual-energy x-ray absorptiometry. The average bone mineral density within the femoral neck region is 0.688 gm/sq-cm. This is 0.4 standard deviations above the mean of the average bone mineral density for age- and gender-matched subjects (the Z-score). It is 1.4 standard deviations below the mean peak bone mineral density in young adults (the T-score). FINDINGS (TOTAL HIP): The bone mineral density of the left hip was assessed by dual-energy x-ray absorptiometry. The average bone mineral density within the total hip region is 0.820 gm/sq-cm. This is 0.6 standard deviations above the mean of the average bone mineral density for age- and gender-matched subjects (the Z-score). It is 1.0 standard deviations below the mean peak bone mineral density in young adults (the T-score). SUMMARY OF CURRENT RESULTS: Region BMD T-score Z-score AP Spine (L1, L3) 1.153 1.3 3.4 Femoral Neck (Left) 0.688 -1.4 0.4 Total Hip (Left) 0.820 -1.0 0.6 COMPARISON WITH PREVIOUS RESULTS Region Age BMD T-score BMD Change BMD Change Exam Date g/cm2 vs Baseline vs Previous AP Spine (L1,L3) 03/21/2022 71 1.153 1.3 -2.4%* -2.4%* 03/10/2020 69 1.181 1.5 Femoral Neck(Left) 03/21/2022 71 0.688 -1.4 -1.9% -1.9% 03/10/2020 69 0.702 -1.3 Total Hip(Left) 03/21/2022 71 0.820 -1.0 -3.2%* -3.2%* 03/10/2020 69 0.847 -0.8 *Denotes significance at 95% confidence level IMPRESSION: 1. The bone mineral density of the lumbar spine is normal. There has been a statistically significant decrease in bone mineral density since the baseline examination of 03/10/2020. Diffuse degenerative changes are present in the lumbar spine, causing an overestimate of lumbar spine bone density. 2. The bone mineral density of the left femoral neck is mildly decreased. There has been no significant change in bone mineral density since the baseline examination of 03/10/2020. 3. The bone mineral density of the left total hip is normal. There has been a statistically significant decrease in bone mineral density since the baseline examination of 03/10/2020. 4. Overall, the above findings are diagnostic of low bone mass (osteopenia) by WHO criteria. 5. Based on the FRAX fracture risk model, the 10-year probability for major osteoporotic fracture is 5.4% and that for hip fracture is 0.8%. This 10-year fracture risk estimate was calculated using the risk factors noted in the history above, along with the femoral neck bone density. FRAX is intended to help guide treatment decisions in men over age 50 and postmenopausal women with low bone mass (osteopenia). The National Osteoporosis Foundation (NOF) recommends that FDA-approved medical therapies be considered in postmenopausal women and men age 50 years and older with osteoporosis and those with low bone mass whose 10-year fracture probability by FRAX is >= 20% for major osteoporotic fracture or >= 3% for hip fracture. However, all treatment decisions require clinical judgment and consideration of individual patient factors, including patient preferences, comorbidities, previous drug use, risk factors not captured in the FRAX model (e.g., frailty, falls, vitamin D deficiency, increased bone turnover, interval significant decline in bone density) and possible under- or overestimation of fracture risk by FRAX. General comments regarding interpretation of bone density measurements: A) In children, premenopausal woman and males under age 50 not at increased risk for fractures only Z-scores, not T-scores are used to indicate risk. A Z-score above -2.0 is defined as within the expected range for age and Z-score at or less than -2.0 is below the expected range for age. A Z-score below the expected range for age in a patient with recent fractures and/or chronic corticosteroid treatment is consistent with a diagnosis of osteoporosis. B) In post menopausal women and males over 50, comparison of the measured bone mineral density with the average value in young normal subjects (the T-score) has been found to be useful in assessing fracture risk. Fracture risk approximately doubles for each 1.0 standard deviation (SD) in individual's hip or spine bone mineral density is below the average value of young normal subjects. The World Health Organization (WHO) has defined T-scores of -1.0 to -2.5 as diagnostic of low bone mass (OSTEOPENIA), and T-scores of -2.5 or lower to be diagnostic of OSTEOPOROSIS, based on the site of lowest bone density. Note that there will be a change in reporting format and reference databases as patients move from the younger population (group A) to the older population (group B) The National Osteoporosis Foundation (www.nof.org) recommends adequate intake of calcium and vitamin D and regular weight-bearing exercise in all patients. They recommend pharmacologic treatment in postmenopausal women and men age 50 and older presenting with any of the followin) Osteoporosis, after appropriate evaluation to exclude secondary causes. 2) A hip or vertebral (clinical or radiographic) fracture, regardless of the bone density. 3) Low bone mass (Osteopenia) and one or more of: other prior fractures, secondary causes associated with high risk of fracture (such as glucocorticoid use or total immobilization), or computed high risk of fracture (10-yr probability of hip fracture >= 3% or a 10-yr probability of any major osteoporosis-related fracture >= 20% based on the U.S.-adapted WHO algorithm), available at http://www.shef.ac.uk/FRAX). Dictated by: Renzo Tim M.D. The radiology attending physician has personally reviewed this study, and had reviewed and/or edited this written report and agrees with it. Electronically signed by: Bill Alba MD, Ph.D Jeffry Horton MD IMG DXA PROCEDURES Final Resu lt from Last 3 Months or Most Recently Relevant to Health Maintenance Insurance MEDICARE [employer] INSURANCE MEDICARE A INSURANCE MEDICARE A INSURANCE Advance Directives For more information, please contact: [phone] * Full Code (Latest Code Status on File) Date Activated Date Inactivated Comments 03/04/2021 4:57 PM 03/04/2021 9:03 PM Care Teams Wood Heel Attacher Relationship Specialty Start Date End Date Jeffry Horton MD [address] [place] [address] DR Tom DIZE [address] [place] [id number] PCP - General Internal Medicine 11/05/17 Ligia Larsen MD [address] [place] [address] Radiation Oncologist Radiation Oncology 09/10/18 Aft, Jennie Pack MD PhD [address] [facility] [address] [place] [address] Surgeon Surgical Oncology 09/10/18 Donna Moser, PhD [address] [facility] [address] [place] [address] Nurse Practitioner Radiation Oncology 09/10/18 Nae Hunt POTATO INSPECTOR [address] [place] [address] Nurse Practitioner Medical Oncology 01/12/20 Trino Loza MD [address] DIV IM PULMONARY AND CCM, [address] [place] [address] Referring Physician Pulmonary Disease 04/30/25 Danika Elizondo MD PhD [address] DIV IM MEDICAL ONCOLOGY, [address]A, 7B, [address] [place] [address] Medical Oncologist/Gumming Machine Operator Medical Oncology 04/30/25
--- OUTSIDE RECORDS SUMMARY | 2025-05-20 16:29 | XMS_ITS | Encounter Summary ---
Author Organization [facility] Healthcare Address [address] [place] [address] Care Team Providers Care Safety Specialist Name Role Phone Jeffry Horton MD Primary Care Provider [phone] Ligia Larsen MD Unavailable Aft, Jennie Pack MD PhD Unavailable [phone] Donna Moser PhD Unavailable [phone] Nea Hunt SUPERVISOR SINTERING PLANT Unavailable [phone] Trino Loza MD Unavailable [phone] Danika Elizondo MD PhD Unavailable [phone] Encounter Details Date Type Department Care Team (Late st Contact Info) Description 09/27/2020 Telephone [facility] [address] [place] [address] [place] [id number] Johanna Fitzgerald, RT Social History Tobacco Use Types Packs/Day Years Used Date Smoking Tobacco: Never Smokeless Tobacco: Never Alcohol Use Standard Drinks/Week Comments No 0 (1 standard drink = 0.6 oz pur e alcohol) PHQ-2 Answer Date Recorded PHQ-2 Total Score (If total score is 3 or more points, staff should administer the PHQ-9) 0 03/10/2020 Comments No Sex and Gender Information Value Date Recorded Sex Assigned at Not on file Legal Sex Female 1:14 AM LOOM OPERATOR Gender Identity Female 05/14/2020 6:01 PM LOOM OPERATOR Sexual Orientation Straight 03/03/2019 8: 24 PM CDT 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 Job 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 Not on file Not on file Not on file documented as of this encounter Plan of Treatment Not on file documented as of this encounter Visit Diagnoses Not on filedocumented in this encounter Care Teams Safety Specialist Relationship Specialty Start Date End Date Jeffry Horton MD [facility] [address] Santos [facility] [address] [place] [address] PCP - General Internal Medicine 11/05/17 Ligia Larsen MD [address] [facility] [address] [place] [address] Radiation Oncologist Radiation Oncology 09/10/18 IvonnetJennie MD PhD [address] LL [facility] [address] [place] [address] Surgeon Surgical Oncology 09/10/18 Donna Moser, PhD [address] LL [facility] [address] [place] [address] Nurse Practitioner Radiation Oncology 09/10/18 Nae Hunt, SUPERVISOR [employer] [address] [place] [address] Nurse Practitioner Medical Oncology 01/12/20 Trino Loza MD [address] DIV IM PULMONARY AND CCM, [address] [place] [address] Referring Physician Pulmonary Disease 04/30/25 Danika Elizondo MD PhD [address] DIV IM MEDICAL ONCOLOGY, [address]A, 7B, [address] [place] [address] Medical Oncologist/Hand Inserter Operator Medical Oncology 04/30/25 documented as of this encounter
--- OUTSIDE RECORDS SUMMARY | 2025-05-20 17:02 | XMS_ITS | Encounter Summary ---
Author Organization [facility] Address [address] [place] [address] Phone Care Team Providers Care Senior Center Manager Name Role Phone Jeffry Horton MD Primary Care Provider [phone] Ligia Larsen MD Unavailable Aft, Jennie Pack MD PhD Unavailable [phone] Donna Moser PhD Unavailable [phone] Nae Hunt ASSEMBLER DECK [employer] HULL Unavailable [phone] Trino Loza MD Unavailable [phone] Danika Elizondo MD PhD Unavailable [phone] Encounter Details Date Type Department Care Team (Late st Contact Info) Description 05/20/[address] 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 Pt is aware of date, time and location GER OF COMMUNITY RELATIONS documented in this encounter Plan of Treatment [...] on stairs Contact your local community or [facility] for information on exercise, fall prevention programs, or options for improving home safety. documented as of this encounter Visit Diagnoses Not on filedocumented in this encounter Care Teams Senior Center Manager Relationship Specialty Start Date End Date Jeffry Horton MD [facility] [address] [place] [address] PCP - General Internal Medicine 11/05/17 Ligia Larsen MD [address] [place] [address] Radiation Oncologist Radiation Oncology 09/10/18 AftJennie MD PhD [address] [place] [address] Surgeon Surgical Oncology 09/10/18 Donna Moser, PhD [address] [place] [address] Nurse Practitioner Radiation Oncology 09/10/18 Nae Hunt, ASSEMBLER DECK [employer] HULL [address] [place] [address] Nurse Practitioner Medical Oncology 01/12/20 Trino Loza MD [address] DIV IM PULMONARY AND CCM, [address] [place] [address] Referring Physician Pulmonary Disease 04/30/25 Danika Elizondo MD PhD [address] DIV IM MEDICAL ONCOLOGY, [address]A, [address]B, [address] [place] [address] Medical Oncologist/Secondary Special Education Teacher Medical Oncology 04/30/25 documented as of this encounter
--- OUTSIDE RECORDS SUMMARY | 2025-05-20 17:02 | XMS_ITS | Encounter Summary ---
Author Organization [facility] Healthcare Address [address] [place] [address] Care Team Providers Care Picture Engraver Name Role Phone Jeffry Horton MD Primary Care Provider [phone] Ligia Larsen MD Unavailable Aft, Jennie Pack MD PhD Unavailable [phone] Donna Moser PhD Unavailable [phone] Nae Hunt HOUSEKEEPING SUPERVISOR HOTEL Unavailable [phone] Trino Loza MD Unavailable [phone] Danika Elizondo MD PhD Unavailable [phone] Encounter Details Date Type Department Care Team (Late st Contact Info) Description 04/20/2025 Results Follow-Up [facility] Medical Group at the [address] [place] [address] Jeffry Horton MD [address] [place] [address] DR Santos [facility] [address] [place] [address] Lipid panel, Hemoglobin A1c, Comprehensive [...] on file Legal Sex Female 1:14 AM AIRPORT SCREENER Gender Identity Female 05/14/2020 6:01 PM AIRPORT SCREENER Sexual Orientation Straight 03/03/2019 8: 24 PM CDT 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 [address] [place] [address] Radiation Oncologist Radiation Oncology 09/10/18 Jennie Liu MD PhD [address] [place] [address] Surgeon Surgical Oncology 09/10/18 Donna Moser, PhD [address] [facility] [address] [place] [address] Nurse Practitioner Radiation Oncology 09/10/18 Nae Hunt, HOUSEKEEPING SUPERVISOR HOTEL [address] [facility] [place] [address] Nurse Practitioner Medical Oncology 01/12/20 Trino Loza MD [address] [facility] [address] DIV IM PULMONARY AND CCM, [address] [place] [address] Referring Physician Pulmonary Disease 04/30/25 Danika Elizondo MD PhD [address] [facility] [address] DIV IM MEDICAL ONCOLOGY, [address] 7A, [address]B, [address] [place] [address] Medical Oncologist/Song Plugger Medical Oncology 04/30/25 documented as of this encounter
--- OUTSIDE RECORDS SUMMARY | 2025-05-20 17:02 | XMS_ITS | Encounter Summary ---
Author Organization [facility] Address [address] [place] [address] Phone Care Team Providers Care Hand Laster Name Role Phone Jeffry Horton MD Primary Care Provider [phone] Ligia Larsen MD Unavailable Aft, Jennie Pack MD PhD Unavailable [phone] Donna Moser PhD Unavailable [phone] Nae Hunt ADVANCED PRACTICE PSYCHIATRIC NURSE Unavailable [phone] Trino Loza MD Unavailable [phone] Danika Elizondo MD PhD Unavailable Encounter Details Date Type Department Care Team (Late st Contact Info) Description 04/16/2025 Results Follow-Up 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 Author [facility] Chronic Pain Care Plan Chronic [...] on stairs Contact your local community or [facility] for information on exercise, fall prevention programs, or options for improving home safety. documented as of this encounter Visit Diagnoses Not on filedocumented in this encounter Care Teams Hand Laster Relationship Specialty Start Date End Date Jeffry Horton MD [facility] [address] Santos [address] [address] PCP - General Internal Medicine 11/05/17 Ligia Larsen MD [address] [facility] [address] LL [facility] [address] [place] [address] Radiation Oncologist Radiation Oncology 09/10/18 Jennie Liu MD PhD [address] [facility] [address] LL [facility] [address] [place] [address] Surgeon Surgical Oncology 09/10/18 Donna Moser, PhD [address] [facility] [address] LL [facility] [address] [place] [address] Nurse Practitioner Radiation Oncology 09/10/18 Nae Hunt, ADVANCED PRACTICE PSYCHIATRIC NURSE [address] [place] [address] Nurse Practitioner Medical Oncology 01/12/20 Trino Loza MD [address] [facility] [address] DIV IM PULMONARY AND CCM, [address] [place] [address] Referring Physician Pulmonary Disease 04/30/25 Danika Elizondo MD PhD [address] [facility] [address] DIV IM MEDICAL ONCOLOGY, [address]A, [address]B, [address] [place] [address] Medical Oncologist/Putter In Medical Oncology 04/30/25 documented as of this encounter
--- OUTSIDE RECORDS SUMMARY | 2025-05-20 17:02 | XMS_ITS | Clinical Summary ---
Author Organization [facility] Address [facility] [place] [address] Care Team Providers Care Prenatal Genetic Counselor Name Role Phone Unavailable Primary Care Provider Unavailabl e Immunizations Immunization Administration Dates Next Due MODERNA COVID-19 (12+) MRNA, LNP-S, PF, 100 MCG/ 0.5 ML DOSE 08/05/2020,07/08/2020 Social History Tobacco Use Types Packs/Day Years Used Date Smoking Tobacco: Never Assessed Comments Unknown Sex and Gender Information Value Date Recorded Sex Assigned at Not on file Legal Sex Female 11:33 AM DENTAL HYGIENIST Gender Identity Not on file Sexual Orientation [...]
--- OUTSIDE RECORDS SUMMARY | 2025-05-20 17:02 | XMS_ITS | Encounter Summary ---
Author Organization [facility] Healthcare Address [address] [place] [address] Care Team Providers Care Hopper Attendant Name Role Phone Jeffry Horton MD Primary Care Provider Ligia Larsen MD Unavailable Aft, Jennie Pack MD PhD Unavailable [phone] Donna Moser PhD Unavailable [phone] Nae Hunt SUPERVISOR INSULATION Unavailable Trino Loza MD Unavailable [phone] Danika Elizondo MD PhD Unavailable [phone] Reason for Visit * Reason Onset Date Comments Scheduling Appointments 02/22/2024/ LVM for patient to call back to schedule. 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 documented as of this encounter Visit Diagnoses Not on filedocumented in this encounter Care Teams Hopper Attendant Relationship Specialty Start Date End Date Jeffry Horton MD [address] [address] [place] [address] PCP - General Internal Medicine 11/05/17 Ligia Larsen MD [address] [place] [address] Radiation Oncologist Radiation Oncology 09/10/18 AftJennie MD PhD [address] [place] [address] Surgeon Surgical Oncology 09/10/18 Donna Moser, PhD [address] [place] [address] Nurse Practitioner Radiation Oncology 09/10/18 Nae Hunt, SUPERVISOR INSULATION [address] [place] [address] Nurse Practitioner Medical Oncology 01/12/20 Trino Loza MD [address] DIV IM PULMONARY AND CCM, [address] [place] [address] Referring Physician Pulmonary Disease 04/30/25 Danika Elizondo MD PhD [address] DIV IM MEDICAL ONCOLOGY, [facility] [address]A, 7B, [address] [place] [address] Medical Oncologist/Benefits Assistant Medical Oncology 04/30/25 documented as of this encounter
--- OUTSIDE RECORDS SUMMARY | 2025-05-20 17:02 | XMS_ITS | Encounter Summary ---
Author Organization [facility] Healthcare Address [address] [place] [address] Care Team Providers Care Metal Patternmaker Name Role Phone Jeffry Horton MD Primary Care Provider [phone] Ligia Larsen MD Unavailable Aft, Jennie Pack MD PhD Unavailable [phone] Roman Bentley MD Unavailable Donna Moser PhD Unavailable [phone] Nae Hunt TANKER DRIVER Unavailable [phone] Trino Loza MD Unavailable [phone] Danika Elizondo MD PhD Unavailable [phone] Encounter Details Date Type Department Care Team (Late st Contact Info) Description 07/18/2018 Telephone [facility] Radiation Oncology [address] [facility] [place] [address] Timothy Hernandez CMA Social History Tobacco Use Types Packs/Day Years Used Date Smoking Tobacco: Never Smokeless Tobacco: Never Alcohol Use Standard Drinks/Week Comments No 0 (1 standard drink = 0.6 oz pur e alcohol) Comments Unknown Sex and Gender Information Value Date Recorded Sex Assigned at Not on file Legal Sex Female 1:14 AM CASE MAKER Gender Identity Female 05/14/2020 6:01 PM CASE MAKER Sexual Orientation Straight 03/03/2019 8: 24 PM CDT 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 Not on file Not on file Not on file documented as of this encounter Plan of Treatment Not on file documented as of this encounter Visit Diagnoses Not on filedocumented in this encounter Care Teams Metal Patternmaker Relationship Specialty Start Date End Date Jeffry Horton MD [facility] [facility] [address] [place] [address] PCP - General Internal Medicine 11/05/17 Ligia Larsen MD [address] [place] [address] Radiation Oncologist Radiation Oncology 09/10/18 IvonnetJennie MD PhD [address] LL [facility] [address] [place] [address] Surgeon Surgical Oncology 09/10/18 Roman Bentley MD [address] [place] [address] Referring Physician Medical Oncology 09/10/18 01/11/20 Donna Moser, PhD [address] [place] [address] Nurse Practitioner Radiation Oncology 09/10/18 Nae Hunt, TANKER DRIVER [address] [place] [address] Nurse Practitioner Medical Oncology 01/12/20 Trino Loza MD [address] DIV IM PULMONARY AND CCM, [address] [place] [address] Referring Physician Pulmonary Disease 04/30/25 Danika Elizondo MD PhD [address] [facility] MEDICAL ONCOLOGY, [address] [place] [address] Medical Oncologist/Principal Systems Architect Medical Oncology 04/30/25 documented as of this encounter
--- OUTSIDE RECORDS SUMMARY | 2025-05-20 17:02 | XMS_ITS | Encounter Summary ---
Author Organization [facility] Address [address] [place] [address] Phone Care Team Providers Care Machine Heel Seat Fitter Name Role Phone Jeffry Horton MD Primary Care Provider [phone] Ligia Larsen MD Unavailable Aft, Jennie Pack MD PhD Unavailable [phone] Donna Moser PhD Unavailable [phone] Nae Hunt DIE ATTACHER Unavailable [phone] Trino Loza MD Unavailable [phone] Danika Elizondo MD PhD Unavailable [phone] Reason for Referral * MRI/CAT/PET Scan (Routine) - Authorized Specialty Diagnoses / Procedures Referred By Alex gomez Referred To Contact Radiology Diagnoses Thymic carcinoma (HCC) Procedures CT angiogram chest with and without contrast Adonay Craig, [place] [address] [facility] [address] [place] [address] Phone: tel: fax: [address] [address] Referral ID Status Reason Start Date Expiration Date V isits Requested Visits Authorized [id number] Authorized 05/19/2025 06/18/2026 1 1 ER COVERING MACHINE OPERATOR Encounter Details Date Type Department Care Team (Late st Contact Info) Description 05/19/2025 Orders Only [facility] Medicine Surgery [address] [facility] Floor [address] [place] [id number] Adonay Craig NP [address] [place] [address] Thymic carcinoma (HCC) (Primary Dx) [...] on file Legal Sex Female 1:14 AM RUBBER COVERING MACHINE OPERATOR Gender Identity Female 05/14/2020 6:01 PM RUBBER COVERING MACHINE OPERATOR Sexual Orientation Straight 03/03/2019 8: 24 PM CDT 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 documented in this encounter Care Teams Machine Heel Seat Fitter Relationship Specialty Start Date End Date Jeffry Horton MD [address] [place] [address] [address] [address] PCP - General Internal Medicine 11/05/17 Ligia Larsen MD [address] [facility] [address] [place] [address] Radiation Oncologist Radiation Oncology 09/10/18 Jennie Liu MD PhD [address] [facility] [address] [place] [address] Surgeon Surgical Oncology 09/10/18 Donna Moser, PhD [address] [facility] [address] [place] [address] Nurse Practitioner Radiation Oncology 09/10/18 Nae Hunt, DIE ATTACHER [address] [place] [address] Nurse Practitioner Medical Oncology 01/12/20 Trino Loza MD [address] [facility] DIV IM PULMONARY AND CCM, [address] [place] [address] Referring Physician Pulmonary Disease 04/30/25 Danika Elizondo MD PhD [address] [facility] DIV IM MEDICAL ONCOLOGY, [facility] [address]A, [address] [place] [address] Medical Oncologist/General Teller Medical Oncology 04/30/25 documented as of this encounter
--- OUTSIDE RECORDS SUMMARY | 2025-05-20 17:02 | XMS_ITS | Encounter Summary ---
Author Organization [facility] Address [address] [place] [address] Phone Care Team Providers Care Buildings Painter Name Role Phone Jeffry Horton MD Primary Care Provider [phone] Ligia Larsen MD Unavailable Aft, Jennie Pack MD PhD Unavailable Donna Moser PhD Unavailable [phone] Nae Hunt RETAIL LEASING AGENT Unavailable [phone] Trino Loza MD Unavailable [phone] Danika Elizondo MD PhD Unavailable [phone] Encounter Details Date Type Department Care Team (Late st Contact Info) Description 03/23/2025 Results Follow-Up 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 documented as of this encounter Visit Diagnoses Not on filedocumented in this encounter Care Teams Buildings Painter Relationship Specialty Start Date End Date Jeffry Horton MD [address] [facility] [address] [place] [address] PCP - General Internal Medicine 11/05/17 Ligia Larsen MD [address] [place] [address] Radiation Oncologist Radiation Oncology 09/10/18 AftJennie MD PhD [address] [place] [address] Surgeon Surgical Oncology 09/10/18 Donna Moser, PhD [address] [place] [address] Nurse Practitioner Radiation Oncology 09/10/18 Nae Hunt, RETAIL LEASING AGENT [address] [place] [address] Nurse Practitioner Medical Oncology 01/12/20 Trino Loza MD [address] DIV IM PULMONARY AND CCM, [address] [place] [address] Referring Physician Pulmonary Disease 04/30/25 Danika Elizondo MD PhD [address] DIV IM MEDICAL ONCOLOGY, [address] [place] [address] Medical Oncologist/Dairy Management Specialist Medical Oncology 04/30/25 documented as of this encounter
--- OUTSIDE RECORDS SUMMARY | 2025-05-20 17:02 | XMS_ITS | Clinical Summary ---
Author Organization [facility] Address [address] [address] Care Team Providers Care Dermatology Procedural Physician Name Role Phone Jeffry Horton MD Primary Care Provider [phone] Ligia Larsen MD Unavailable Aft, Jennie Pack MD PhD Unavailable [phone] Donna Moser PhD Unavailable [phone] Nae Hunt [employer] Unavailable [phone] Trino Loza MD Unavailable [phone] Danika Elizondo MD PhD Unavailable [phone] Allergies Active Allergy Reactions Criticality Noted [...] 03/25/2025 Assessment & Plan (04/20/2025 2:49 PM PERSONALIZED LIVING ASSISTANT): Incidental finding on CT imaging. Managing without medications. 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 Right posterior capsular opacification Glaucoma suspect of both eyes 01/07/2025 Pseudophakia of right eye 06/04/2024 Overview (06/04/2024): 06/04/2024- Extraction Cataract - Phacoemulsification And Lens Implant - Right [id number] of power 22.0D AIM: PLANO Assessment & Plan (06/20/2024 9:18 AM PERSONALIZED LIVING ASSISTANT): Status-post Extraction Cataract - Phacoemulsification And Lens [...] eye. Assessment & Plan (06/04/2024 11:17 AM PERSONALIZED LIVING ASSISTANT): Post op day 1s/p Extraction Cataract - [...] 08/25/2022 Assessment & Plan (05/01/2025 12:23 PM PERSONALIZED LIVING ASSISTANT): 1. Chronic, well controlled 2. Discussed how [...] 03/12/2022 Assessment & Plan (05/01/2025 12:23 PM PERSONALIZED LIVING ASSISTANT): - Chronic, well-controlled - The patient is [...] (07/02/2020): Added automatically from request for surgery [id number] Assessment & Plan (02/14/2025 10:15 AM CDT): [...] 03/06/2018 Assessment & Plan (04/20/2025 2:53 PM PERSONALIZED LIVING ASSISTANT): Diet-controlled hyperlipidemia. Target LDL less than 130. [...] 10/03/2017 Assessment & Plan (06/20/2024 9:18 AM PERSONALIZED LIVING ASSISTANT): BAT to visually sig but no issues [...] angles Assessment & Plan (07/05/2023 2:31 PM PERSONALIZED LIVING ASSISTANT): Not visually significant. Do not recommend surgery [...] (OS)>OD Assessment & Plan (05/20/2021 10:32 AM PERSONALIZED LIVING ASSISTANT): Not visually significant. Do not recommend surgery at this time. Continue to monitor. Patient to call if problems with activities of daily living. Brochure offered/given. left eye (OS)>OD Assessment & Plan (05/19/2020 3:11 PM PERSONALIZED LIVING ASSISTANT): Not visually significant. Do not recommend surgery [...] 05/20/202112/17 Assessment & Plan (07/05/2023 2:31 PM PERSONALIZED LIVING ASSISTANT): Has always been hyperopic No longer wearing [...] past. Assessment & Plan (05/20/2021 10:38 AM PERSONALIZED LIVING ASSISTANT): Has always been hyperopic No longer wearing CTL MRx is better than +1.25 OTC, but will try various OTC first. Did not like bifocals in the past. 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 No need to garrido into cataract extraction (CE) left eye (OS) yet. Will monitor. Cotninue timolol BID Assessment & Plan (06/05/2024 8:13 AM PERSONALIZED LIVING ASSISTANT): On timolol both eyes (OU) chronically- will continue Now open angles right eye (OD) Will monitor. Assessment & Plan (05/21/2024 8:56 PM PERSONALIZED LIVING ASSISTANT): Follows with Dr. Mendoza, here for second [...] (OU). Assessment & Plan (07/05/2023 3:51 PM PERSONALIZED LIVING ASSISTANT): History of CDR asymmetry & large optic nerves ([place] in [place]). No FHx, normal pach Has been latanoprost [...] asymmetry & large optic nerves ([place] in [place]). No FHx, normal pach Reviewed OCT and [...] changes. Assessment & Plan (05/20/2021 10:35 AM PERSONALIZED LIVING ASSISTANT): History of CDR asymmetry. intraocular pressure (IOP) WNL, normal testing and pachs. First time with higher intraocular pressure (IOP). No FHx. Plan baseline testing- HVF and ONOCT Assessment & Plan (05/19/2020 3:07 PM PERSONALIZED LIVING ASSISTANT): History of CDR asymmetry. intraocular pressure (IOP) WNL, normal testing and pachs. Will continue to monitor. Assessment & Plan (10/01/2018 10:11 AM CDT): Glaucoma suspect based on CDR asymmetry: IOP within normal limits, RNFL normal, visual field and pachs today: Trichiasis 10/03/2017 01/07/2025 Low back pain 04/13/2016 02/14/2025 Overview (05/21/2024): with radiculopathy -seeing ortho at [place] s/p laminectomy 1997 Abnormal mammogram 08/23/2015 8 Mammogram abnormal 08/23/2015 8 Encounters Date Type Department Care Team Description 05/20/2025 Telephone [facility] Medicine Surgery [address] [facility] [address] [place] [phone] Luca Alvarado RMA 05/19/2025 3:00 PM PERSONALIZED LIVING ASSISTANT Office Visit [facility] Medicine Oncology [facility] Floor 5 [place] [phone] Danika Elizondo MD PhD 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 2:00 PM PERSONALIZED LIVING ASSISTANT Office Visit [facility] Medicine Surgery [facility] 5 [place] [phone] Kelley Kohler MD Thymic carcinoma (HCC) (Primary Dx) 05/19/2025 Orders Only [facility] Medicine Surgery [address] [place] [address] 5 [place] [phone] Adonay Craig NP Thymic carcinoma (HCC) (Primary Dx) 05/18/2025 Orders Only [facility] [address] [place] [address] 5 [place] [phone] Danika Elizondo MD PhD Thymic carcinoma (HCC) (Primary Dx) 05/13/2025 4:16 PM PERSONALIZED LIVING ASSISTANT - 05/13/2025 11:59 PM PERSONALIZED LIVING ASSISTANT Hospital Encounter [facility] Radiology at [address] [address] Thymic carcinoma (HCC) Discharge Disposition: Discharge to home or self care 05/11/2025 Orders Only [facility] Radiology at [address] [address] Caty Rivera RN 05/05/2025 3:00 PM PERSONALIZED LIVING ASSISTANT Lab [facility] - Lab Collection [address] [facility] Floor 5 [place] [address] Thymic carcinoma (HCC) 05/05/2025 1:40 PM PERSONALIZED LIVING ASSISTANT Office Visit [facility] [address] [place] [address] 5 [place] [address] Danika Elizondo MD PhD Thymic carcinoma (HCC) (Primary Dx) 05/01/2025 11:45 AM PERSONALIZED LIVING ASSISTANT Office Visit [facility] [address] [facility] [address] [place] [phone] Maurizio Wolfe MD LEONEL on CPAP (Primary Dx); Gastroesophageal reflux disease, unspecified whether esophagitis present 04/29/2025 Orders Only [facility] Pul[facility] [address] [facility] Advanced Medicine 8th [place] [address] [place] [phone] Trino Loza MD Primary thymic carcinoma (HCC) (Primary Dx) 04/24/2025 7:39 AM PERSONALIZED LIVING ASSISTANT - 04/24/2025 11:59 PM PERSONALIZED LIVING ASSISTANT Hospital Encounter [facility] at [address], [address] [place] [phone] Lalita Campoverde MD Cervical spondylosis Discharge Disposition: Discharge to home or self care 04/24/2025 Telephone [facility] at [address], [address] [place] [phone] Lalita Campoverde MD POST R CMBB #1 CALL 04/22/2025 10:29 AM PERSONALIZED LIVING ASSISTANT - 04/22/2025 11:59 PM PERSONALIZED LIVING ASSISTANT Hospital Encounter [facility] Imaging [address] [place] [address] Discharge Disposition: Discharge to home or self care 04/22/2025 7:50 AM PERSONALIZED LIVING ASSISTANT - 04/22/2025 11:59 PM PERSONALIZED LIVING ASSISTANT Hospital Encounter [facility] [address] [place] [address] Chasity Alvardao RN Mediastinal mass Discharge Disposition: Discharge to home or self care 04/21/2025 Telephone [facility] [address] [facility] Advanced Medicine 8th [place] [address] [place] [phone] Fahad Castillo RN 04/20/2025 4:54 PM PERSONALIZED LIVING ASSISTANT - 04/20/2025 11:59 PM PERSONALIZED LIVING ASSISTANT Hospital Encounter [address] [place] [address] Discharge Disposition: Discharge to home or self care 04/20/2025 2:30 PM PERSONALIZED LIVING ASSISTANT Office Visit [facility] at the [address] [phone] Jeffry Horton MD Encounter for annual wellness visit (AWV) in Medicare patient (Primary Dx); Pure hypercholesterolemia; Elevated glucose; Bronchiectasis without complication (HCC); Mediastinal mass 04/20/2025 Results Follow-Up [facility] at the [address] [phone] Jeffry Horton MD Lipid panel, Hemoglobin A1c, Comprehensive metabolic panel, without glucose (Outreach), Additional followed-up results: 2 04/20/2025 Orders Only [facility] at the [address] [phone] Jeffry Horton MD Pure hypercholesterolemia; Elevated glucose 04/16/2025 9:35 AM CDT Lab [facility] ([facility] [address] [place] [phone] Bronchiectasis without complication (HCC); Mediastinal mass; Cough with hemoptysis 04/16/2025 8:30 AM CDT Office Visit [facility] Medicine Pulmonary [address] [facility] 8th [place] [address] [place] [phone] Trino Loza MD Mediastinal mass (Primary Dx); Bronchiectasis without complication (HCC); Cough with hemoptysis; 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; Fibrosing mediastinitis 04/16/2025 Results Follow-Up [facility] Pulmonary [address] [facility] 8th [place] [address] [place] [phone] Trino Loza MD Differential, auto 04/13/2025 Telephone [facility] Pulmonary [address] [facility] 8th [place] [address] [place] [phone] Trell Martinez CPhT 04/02/2025 Telephone [facility] [address] [facility] 8th [place] [address] [place] [address] Fahad Castillo, RN 04/02/2025 Telephone [facility] [address] [facility] 8th [place] [address] [place] [address] Dedra Herrera, SMT MACHINE OPERATOR 03/30/2025 Telephone Radiology 1 [place] [address] Lydia Chau, RT 03/28/2025 9:30 AM CDT - 03/28/2025 11:59 PM CDT Hospital Encounter [facility] [address] [place] [address] Trino Loza MD Mediastinal mass; Aortitis Discharge Disposition: Discharge to home or self care 03/27/2025 9:54 AM CDT - 03/27/2025 11:59 PM CDT Hospital Encounter [facility] [address] Floor 8 [place] [address] Discharge Disposition: Discharge to home or self care 03/27/2025 9:54 AM CDT - 03/27/2025 11:59 PM CDT Hospital Encounter [facility] - PET [address] [facility] Floor 8 [place] [address] Mediastinal mass; Malignant neoplasm of anterior mediastinum (HCC) Discharge Disposition: Discharge to home or self care 03/27/2025 Orders Only [facility] [address] [facility] [address] [place] [phone] Trino Loza MD Mediastinal mass (Primary Dx); Aortitis 03/25/2025 Telephone [facility] [address] [facility] 8th [place] [address] [place] [address] Dedra Herrera, SMT MACHINE OPERATOR 03/24/2025 Telephone [facility] [address] [facility] 8th [place] [address] [place] [address] Fahad Castillo, RN 03/23/2025 Orders Only [facility] Pulmonary [address] [facility] 8th [place] [address] [place] [address] Fahad Castillo, RN Mediastinal mass (Primary Dx) 03/23/2025 Telephone [facility] Pulmonary [address] [facility] 8th [place] [address] [place] [address] Fahad Castillo, RN 03/23/2025 Orders Only [facility] at the [address] [place] [phone] Jeffry Horton MD 03/23/2025 Results Follow-Up [facility] Pulmonary [address] [facility] 8th [place] [address] [place] [phone] Trino Loza MD T-SPOT.TB Blood 03/23/2025 Telephone [facility] Pulmonary [address] [facility] 8th [place] [address] [place] [address] Fahad Castillo, DAYAN 03/19/2025 10:[address] [facility] [id number] [place] [address] [place] [address] Hemoptysis; Multiple lung nodules on CT 03/19/2025 9:09 AM CDT - 03/19/2025 11:59 PM CDT Hospital Encounter [facility] at [facility] [address] [address], [address] [place] [phone] Lalita Campoverde MD Cervical spondylosis (Primary Dx); Cervicalgia; DDD (degenerative disc disease), cervical Discharge Disposition: Discharge to home or self care 03/19/2025 8:30 AM CDT Telemedicine [facility] Pulmonary [address] [facility] 8th [place] [address] [place] [address] Trino Loza MD Bronchiectasis without complication (HCC) (Primary Dx); Hemoptysis; Lung nodules; Multiple lung nodules on CT; Mediastinal mass; Malignant neoplasm of anterior mediastinum (HCC); 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 03/19/2025 Telephone [facility] Pulmonary [address] [facility] 8th [place] [address] [place] [address] Fahad Castillo RN 03/02/2025 11:35 AM CDT - 03/02/2025 11:59 PM CDT Hospital Encounter [facility] [address] [place] [address] Hemoptysis Discharge Disposition: Discharge to home or self care 03/02/2025 10:30 AM CDT - 03/02/2025 11:59 PM CDT Hospital Encounter [facility] Pulmonary [address] [facility] [address] [place] [phone] Hemoptysis Discharge Disposition: Discharge to home or [...] on file Legal Sex Female 1:14 AM PERSONALIZED LIVING ASSISTANT Gender Identity Female 05/14/2020 6:01 PM PERSONALIZED LIVING ASSISTANT Sexual Orientation Straight 03/03/2019 8: 24 PM CDT 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 Not on file Not on file Not on file Obstetrics History Para Term AB IAB SAB Ectopic Multiple Livin g Live Births 2 1 1 Date Outcome GA Total Labor Labor/2nd/3rd Weight Sex Type Anes PTL Radha A1 A5 Name Clin Term Last Filed Vital Signs Vital Sign Reading Time Taken Comments Blood Pressure 122/75 05/19/2025 1:52 PM PERSONALIZED LIVING ASSISTANT Pulse 71 05/19/2025 1:52 PM PERSONALIZED LIVING ASSISTANT Temperature 36.3 C (97.3 F) 05/19/2025 1:52 PM PERSONALIZED LIVING ASSISTANT Respiratory Rate 18 05/19/2025 1:52 PM PERSONALIZED LIVING ASSISTANT Oxygen Saturation 98% 05/19/2025 1:52 PM PERSONALIZED LIVING ASSISTANT Inhaled Oxygen Concentration - - Weight 66 kg (145 lb 8 oz) 05/19/2025 1:52 PM CS T Height 160 cm (5' 3) 05/13/2025 4:46 PM PERSONALIZED LIVING ASSISTANT Body Mass Index 25.77 05/13/2025 4:46 PM PERSONALIZED LIVING ASSISTANT Plan of Treatment Health Maintenance Due Date [...] home safety. Medical Devices Implanted Type Area Director Style Device Identifier Shelf Expiration Date Model / Serial / Lot [employer] Lens Iol 22d Envista Hydrophobic Acrylic Strl [id number] - [id number] - [id number] Implanted:Qty: 1 on 06/04/2024 by Claire Mendoza MD at [facility] Right: Eye [employer] [id number] 12/15/2026 [id number] / [id number] / [id number] Procedures Procedure Name Priority Date/Time Associated Diagnosis Comments MRI BRAIN W WO CONTRAST Schedule Routine, Read Routine (OP Routine) 05/13/2025 5:47 PM PERSONALIZED LIVING ASSISTANT Thymic carcinoma (HCC) [facility] XF Routine 05/05/2025 3:05 PM PERSONALIZED LIVING ASSISTANT Thymic carcinoma (HCC) PAIN MGMT IMAGING CERVICAL/THORACIC FACET/MEDIAL BRANCH BLOCK RIGHT Schedule Routine, Read Routine (OP Routine) 04/24/2025 8:46 AM PERSONALIZED LIVING ASSISTANT Cervical spondylosis XR CHEST 1 VIEW IP Routine 04/22/2025 10:[address]ING [address] MEDIASTINUM NEEDLE BIOPSY Schedule Routine, Read Routine (OP Routine) 04/22/2025 10:12 AM PERSONALIZED LIVING ASSISTANT Mediastinal mass MYCOLOGY (FUNGAL) CULTURE Routine 04/22/2025 10:00 AM PERSONALIZED LIVING ASSISTANT MYCOBACTERIOLOGY AFB CULTURE Routine 04/22/2025 10:00 AM PERSONALIZED LIVING ASSISTANT AEROBIC AND ANAEROBIC CULTURE AND GRAM STAIN Routine 04/22/2025 10:00 AM PERSONALIZED LIVING ASSISTANT FLOW LEUKEMIA/LYMPHOMA Routine 04/22/2025 9:48 AM PERSONALIZED LIVING ASSISTANT SURGICAL PATHOLOGY Routine 04/22/2025 9:48 AM PERSONALIZED LIVING ASSISTANT Mediastinal mass EGFR Routine 04/20/2025 2:24 PM PERSONALIZED LIVING ASSISTANT Pure hypercholesterolemia GLUCOSE, RANDOM (OUTREACH) Routine 04/20/2025 2:24 PM PERSONALIZED LIVING ASSISTANT Pure hypercholesterolemia COMPREHENSIVE METABOLIC PANEL WITHOUT GLUCOSE (OUTREACH) Routine 04/20/2025 2:24 PM PERSONALIZED LIVING ASSISTANT Pure hypercholesterolemia HEMOGLOBIN A1C Routine 04/20/2025 2:24 PM PERSONALIZED LIVING ASSISTANT Elevated glucose COMPREHENSIVE METABOLIC PANEL (OUTREACH) Routine 04/20/2025 2:24 PM PERSONALIZED LIVING ASSISTANT Pure hypercholesterolemia LIPID PANEL Routine 04/20/2025 2:24 PM PERSONALIZED LIVING ASSISTANT Pure hypercholesterolemia DIFFERENTIAL AUTO Routine 04/16/2025 9:58 [...] 9:46 AM CDT Bronchiectasis without complication (HCC) [id number] PROTEOTYPE Routine 04/16/2025 9:46 AM CDT Bronchiectasis [...] Brain W WO Contrast (05/13/2025 5:47 PM PERSONALIZED LIVING ASSISTANT) Anatomical Region Laterality Modality Head and Neck N/A Magnetic Resonan ce 05/15/2025 8:5 8 AM PERSONALIZED LIVING ASSISTANT Impressions 05/15/2025 11:25 AM PERSONALIZED LIVING ASSISTANT 1. No evidence of intracranial metastatic disease. 2. Numerous T2/FLAIR white matter hyperintensities, compatible with chronic microvascular changes. Dictated by: Richard Barakat M.D. The radiology attending physician has personally reviewed this study, and had reviewed and/or edited this written report and agrees with it. Electronically signed by: Babatunde Chambers M.D. Narrative 05/15/2025 11:25 AM PERSONALIZED LIVING ASSISTANT EXAMINATION: Magnetic resonance imaging (MRI) of the [...] xF - Lab Collect (05/05/2025 3:05 PM PERSONALIZED LIVING ASSISTANT) Reason for Study To identify mutations relevant to patient's cancer. 05/12/2025 3:31 PM PERSONALIZED LIVING ASSISTANT [facility] Genetic Diseases Assessed Cancer 05/12/2025 3:31 PM PERSONALIZED LIVING ASSISTANT [facility] Description of Ranges of DNA Sequences Examined 105 gene liquid biopsy 05/12/2025 3:31 PM PERSONALIZED LIVING ASSISTANT [facility] Overall Interpretation positive 05/12/2025 3:31 PM PERSONALIZED LIVING ASSISTANT [facility] [email or web address] 05/12/2025 3:31 PM PERSONALIZED LIVING ASSISTANT [facility] Comment:[facility] link Low Coverage Regions JAK1, SPOP 05/12/2025 3:31 PM PERSONALIZED LIVING ASSISTANT [facility] Trial Count 1 05/12/2025 3:31 PM PERSONALIZED LIVING ASSISTANT [facility]: Clinical Trial Match 1 Clinical Trial NCT ID: [id number] Clinical Trial Title: A Dwuvz-Zh-Jfxno, Phase 1 Study Evaluating Oral TACC3 PPI Inhibitor, AO-252, in Advanced Solid Tumors With or Without Brain Metastases Clinical Trial URL: [email or web address] ltrials.gov/ct2 /[email or web address] Clinical Phase: Phase 1 Clinical Trial Matches: TP53 p.S96fs mutation Clinical Trial Distance and Location: [address], [place], [place] 05/12/2025 3:31 PM PERSONALIZED LIVING ASSISTANT [facility] Blood Tumor Mutational Kiester Note bTMB cannot be calculated due to insufficient circulating tumor DNA. 05/12/2025 3:31 PM PERSONALIZED LIVING ASSISTANT [facility] ctDNA Tumor Fraction <0.25 % 05/12/2025 3:31 PM PERSONALIZED LIVING ASSISTANT [facility] Microsatellite Instability Note MSI-High not detected 05/12/2025 3:31 PM PERSONALIZED LIVING ASSISTANT [facility] Treatment Implications Note No reportable treatment options found. 05/12/2025 3:31 PM PERSONALIZED LIVING ASSISTANT [facility] Blood specimen (specimen) 05/05/2025 3:05 PM PERSONALIZED LIVING ASSISTANT 05/06/2025 6:43 PM PERSONALIZED LIVING ASSISTANT Narrative This result has genomic variants that were not included in this document. Danika Elizondo MD PhD LAB GENETIC TESTING Final Result Performing Organization Address [facility] de Phone Number [facility] [address] [facility], [address] [place] [address] [facility] [address] [facility], [address] [place] [address] * Imaging Cervical/Thoracic Facet Medial Branch Block Right (62497) (04/24/2025 8:46 AM PERSONALIZED LIVING ASSISTANT) Narrative [id number] - 04/24/2025 8:47 AM PERSONALIZED LIVING ASSISTANT The images from this study are not interpreted by Radiology. Please refer to the physician's procedure / OR operative note. Lalita Campoverde MD IMG PAIN MGMT PROCEDURES F inal Result Performing Organization Address [facility] de Phone Number [email or web address] * XR Chest 1 View (04/22/2025 10:36 AM PERSONALIZED LIVING ASSISTANT) Anatomical Region Laterality Modality Body, Chest N/A Computed Radiogr aphy 04/22/2025 10:4 6 AM PERSONALIZED LIVING ASSISTANT Impressions 04/22/2025 10:48 AM PERSONALIZED LIVING ASSISTANT Comparison made to chest radiograph 03/02/2025. No [...] Main Hackett M.D. Narrative 04/22/2025 10:48 AM PERSONALIZED LIVING ASSISTANT EXAMINATION: 1 view chest radiograph Procedure Note [...] CT Mediastinum Needle Biopsy (04/22/2025 10:12 AM PERSONALIZED LIVING ASSISTANT) Anatomical Region Laterality Modality Mediastinum N/A Computed Tomogra phy 04/22/2025 10:4 9 AM PERSONALIZED LIVING ASSISTANT Impressions 04/22/2025 10:49 AM PERSONALIZED LIVING ASSISTANT Successful CT-guided core biopsy of the mediastinal mass. Please see separate pathology results for interpretation of the submitted biopsy material. Electronically signed by: Idris Gardner M.D., MPH Narrative 04/22/2025 10:49 AM PERSONALIZED LIVING ASSISTANT EXAMINATION: 1. CT guided core biopsy of [...] to the Genomics research team for processing. [place] utilized: Coaxial outer needle: 5 cm 19-gauge [...] to the Genomics research team for processing. [place] utilized: Coaxial outer needle: 5 cm 19-gauge [...] (fungal) culture Aspirate Mediastinum (04/22/2025 10:00 AM PERSONALIZED LIVING ASSISTANT) Report Final Report: No fungus isolated Comment:Testing performed by : [facility], [facility] [facility], [place]., [address] Aspirate (Mediastinum) 04/22/2025 10:00 AM PERSONALIZED LIVING ASSISTANT 04/22/2025 12:38 PM PERSONALIZED LIVING ASSISTANT Narrative [facility] - 05/20/2025 1:00 PM PERSONALIZED LIVING ASSISTANT Mycology cultures are held for 4 weeks. us Trino Loza MD LAB MICROBIOLOGY - G ENERAL ORDERABLES Final Result Performing Organization Address [facility] Hospital/[facility]/ZIP Co de Phone Number ELIUD AMESWCH [address] [employer]. [facility] [place] [address] * Aerobic and anaerobic culture and gram stain Wound Mediastinum (04/22/2025 10:00 AM PERSONALIZED LIVING ASSISTANT) Direct Specimen Exam Stain: No polymorphonuclear leukocytes seen. No organisms seen. Comment:Testing performed by : [facility], [address] [place] [address]., [id number] Report Final Report: No growth ELIUD JACOBS Comment:Testing performed by : [facility], [address] [place] [address]., [id number] Wound (Mediastinum) 04/22/2025 10:00 AM PERSONALIZED LIVING ASSISTANT 04/22/2025 12:38 PM PERSONALIZED LIVING ASSISTANT Trino Loza MD LAB MICROBIOLOGY - G ENERAL ORDERABLES Final Result Performing Organization Address [facility] Co de Phone Number ELIUD BJWCH [address] [employer]. [place] [address] * Flow Leukemia/Lymphoma Tissue (04/22/2025 9:48 AM PERSONALIZED LIVING ASSISTANT) Barakat Stain Test Completed Comment:Testing performed by : [facility], [address] [place]., [address] Leukemia/Lymp hipolito Result See separate Surgical Pathology report. ELIUD JACOBS Comment:Testing performed by : [facility], [address] [place]., [address] Tissue 04/22/2025 9:48 AM PERSONALIZED LIVING ASSISTANT 04/22/2025 5:12 PM PERSONALIZED LIVING ASSISTANT us Chasity Alvarado RN LAB PATHOLOGY ORDERABLES F inal Result Performing Organization Address City/[facility]/ZIP Co de Phone Number ELIUD AMESWCH [address] [employer]. [facility] [place] [address] * Surgical pathology (04/22/2025 9:48 AM PERSONALIZED LIVING ASSISTANT) Tissue (Mediastinal, Mass/Biopsy including flow) 04/22/2025 9:48 AM PERSONALIZED LIVING ASSISTANT Comment:SURGICAL PATH AND FL OW 1-Formalin 1-RPMI Tissue specimen (specimen) (Mediastinal, Mass/Biopsy including flow) 04/22/2025 9:53 AM PERSONALIZED LIVING ASSISTANT Comment:Send to flow Narrative PATHOLOGY BJ - 04/28/2025 12:51 PM PERSONALIZED LIVING ASSISTANT EPIC results best viewed via link to PDF [facility] [place] [address] Note to Patients: This report may contain [...] Gender: F : 1950 (Age: 74) Address: [address] [place] [id number] Hospital #: [id number] Taken:04/22/2025 Received:04/22/2025 Reported: 04/28/2025 Patient Type: [facility] EP ANCIL Client BJWCH Service: Laboratory Location: [...] reviewed by an additional cardiothoracic pathologists for senior quality methods specialist. This result was flagged as significant and was sent to Drs. Idris Gardner and Trino Loza via [employer] chat on 04/28/2025. 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 Flow Cytometric Analysis Specimen quality: paucicellular Flow cytometry was not performed due to insufficient viable cell counts. A Barakat-Giemsa stained cytospin from the flow cytometry specimen was examined for internal chief quality officer purposes. (The flow cytometry was reviewed by [...] The TRPS-1 IHC test was performed by [facility], [address] [place] [address]. Microscopic slide review and interpretation for this case was performed at [facility], Department of Surgical Pathology, [address] [facility] [place], [place] [id number], [place] [address] CLIA # [id number] The performance characteristics of some immunohistochemical stains, fluorescence in-situ hybridization tests and immunophenotyping by flow cytometry cited in this report (if any) were determined by the Surgical Pathology and Flow Cytometry Departments at [facility] as part of an ongoing senior quality methods specialist program and in compliance with federally mandated [...] Surgical Pathology and Flow Cytometry Departments of [facility]. It has not been cleared or approved by the U. S. Food and Drug Administration. IMAGES AND SCANNED DOCUMENTS, IF INCLUDED, ONLY VIEWABLE IN PDF VERSION OF REPORT Idris Gardner MD LAB PATHOLOGY ORDERABLES Final Result PATHOLOGY [facility] [phone] * Glucose, random (Outreach) (04/20/2025 2:24 PM PERSONALIZED LIVING ASSISTANT) Glucose 114 70 - 199 mg/dL Comment: [...] last revised 2022. Blood 04/20/2025 2:24 PM PERSONALIZED LIVING ASSISTANT 04/20/2025 5:51 PM PERSONALIZED LIVING ASSISTANT Jeffry Horton MD LAB BLOOD ORDERABLES Final Re sult [facility] [address] [facility] Department [place] [address] * eGFR (04/20/2025 2:24 PM PERSONALIZED LIVING ASSISTANT) eGFR >90 >=60 mL/min/1. 73 m2 Comment: [...] last reviewed 2021. Blood 04/20/2025 2:24 PM PERSONALIZED LIVING ASSISTANT 04/20/2025 5:57 PM PERSONALIZED LIVING ASSISTANT Jeffry Horton MD LAB BLOOD ORDERABLES Final Re sult Performing Organization Address City/[facility]/ZIP Co de Phone Number [facility] [place] [address] * Comprehensive metabolic panel, without glucose (Outreach) (04/20/2025 2:24 PM PERSONALIZED LIVING ASSISTANT) Sodium 142 135 - 145 mmol/L Potassium, pl 3.6 3.3 - 4.9 mmol/L [facility] Chloride 103 97 - 110 mmol/L [facility] CO2 25 22 - 32 mmol/L [facility] Anion gap 14 2 - 15 mmol/L [facility] BUN 18 6 - 25 mg/dL [facility] Creatinine 0.68 0.60 - 1.10 mg/dL [facility] Calcium 9.3 8.5 - 10.3 mg/dL [facility] Protein, pl 6.9 6.5 - 8.5 g/dL [facility] Albumin 4.0 3.5 - 5.0 g/dL [facility] Bilirubin, total 0.3 0.1 - 1.2 mg/dL [facility] Alk phos 81 40 - 130 Units/L [facility] AST 25 10 - 45 Units/L [facility] ALT 23 7 - 45 Units/L [facility] Blood 04/20/2025 2:24 PM PERSONALIZED LIVING ASSISTANT 04/20/2025 5:51 PM PERSONALIZED LIVING ASSISTANT Jeffry Horton MD LAB BLOOD ORDERABLES Final Re sult Performing Organization Address City/[facility]/ZIP Co de Phone Number [facility] Department [place] [address] * Hemoglobin A1c (04/20/2025 2:24 PM PERSONALIZED LIVING ASSISTANT) Hgb A1C 5.5 4.0 - 5.6 % Estimated Average Glucose 111 mg/dL ELIUD [facility] Comment: The ADA recommends reporting an estimated Average Glucose (eAG) with all Hemoglobin A1c results using the equation derived from a study of 507 normal and diabetic adults. Minority populations were underrepresented and children were not included. (Diabetes Care 2020; 43(S1): S66-S76). The eAG is not equivalent to a fasting glucose. Blood 04/20/2025 2:24 PM PERSONALIZED LIVING ASSISTANT 04/20/2025 5:51 PM PERSONALIZED LIVING ASSISTANT us Jeffry Horton MD LAB BLOOD ORDERABLES Final Re sult [facility] [address] [facility] Department [place] [address] * Lipid panel (04/20/2025 2:24 PM PERSONALIZED LIVING ASSISTANT) Cholesterol 190 30 - 199 mg/dL Comment: [...] revised on 2018. Triglycerides 96 <=149 mg/dL [facility] Comment: Interpretive Data Ages < or = [...] revised on 2018. HDL 66 >=40 mg/dL [facility] Comment: Interpretive Data Ages < or = [...] on 2018. LDL, calculated 107 <=129 mg/dL [facility] Comment: Interpretive Data Ages < or = [...] revised on 2024. Non-HDL Cholesterol 124 mg/dL [facility] Comment: Interpretive Data Ages < or [...] last revised on 2018. Chol/HDL ratio 3 [facility] Blood 04/20/2025 2:24 PM PERSONALIZED LIVING ASSISTANT 04/20/2025 5:51 PM PERSONALIZED LIVING ASSISTANT us Jeffry Horton MD LAB BLOOD ORDERABLES Final Re sult [facility] One [facility] Department [place] [address] * Differential, auto (04/16/2025 9:58 AM CDT) Neutrophil abs 5.90 1.50 - 6.50 K/cumm Imm gran abs 0.03 0.00 - 0.10 K/cumm [facility] Lymphocyte abs 1.19 0.80 - 3.30 K/cumm [facility] Monocyte abs 0.49 0.20 - 0.80 K/cumm [facility] Eosinophil abs 0.12 0.00 - 0.50 K/cumm [facility] Basophil abs 0.04 0.00 - 0.10 K/cumm [facility] Neutrophil pct 76.0 % [facility] Comment: Interpretive Data Percent cell count reference ranges are not reported, since discordance with absolute values may lead to misinterpretation of CBC data. Current Interpretive Data was last revised on 2017. Imm gran pct 0.4 % [facility] Comment: Interpretive Data Percent cell count reference ranges are not reported, since discordance with absolute values may lead to misinterpretation of CBC data. Current Interpretive Data was last revised on 2017. Lymphocyte pct 15.3 % [facility] Comment: Interpretive Data Percent cell count reference ranges are not reported, since discordance with absolute values may lead to misinterpretation of CBC data. Current Interpretive Data was last revised on 2017. Monocyte pct 6.3 % [facility] Comment: Interpretive Data Percent cell count reference ranges are not reported, since discordance with absolute values may lead to misinterpretation of CBC data. Current Interpretive Data was last revised on 2017. Eosinophil pct 1.5 % [facility] Comment: Interpretive Data Percent cell count reference ranges are not reported, since discordance with absolute values may lead to misinterpretation of CBC data. Current Interpretive Data was last revised on 2017. Basophil pct 0.5 % [facility] Comment: Interpretive Data Percent cell count reference ranges are not reported, since discordance with absolute values may lead to misinterpretation of CBC data. Current Interpretive Data was last revised on 2017. Blood 04/16/2025 9:58 AM CDT 04/16/2025 10:09 AM CDT Trino Loza MD LAB BLOOD ORDERABLES Final Result [facility] One [facility] Department [place] [address] * (ABNORMAL) CBC with auto differential (04/16/2025 9:58 AM CDT) WBC 7.77 3.80 - 9.90 K/cumm Hgb 13.3 11.9 - 15.5 g/dL [facility] Hct 40.9 35.6 - 45.5 % [facility] Plt 221 150 - 400 K/cumm [facility] MPV 11.1 9.1 - 12.3 fL [facility] RBC 4.34 3.90 - 5.20 M/cumm [facility] MCV 94.2 81.3 - 96.4 fL [facility] MCH 30.6 27.1 - 33.3 pg [facility] MCHC 32.5 32.3 - 35.7 g/dL [facility] RDW CV 14.4 11.1 - 14.9 % [facility] RDW SD 49.8(H) 35.7 - 48.1 fL [facility] NRBC abs 0.00 0.00 - 0.01 K/cumm [facility] Blood 04/16/2025 9:58 AM CDT 04/16/2025 10:09 AM CDT Trino Loza MD LAB BLOOD ORDERABLES Final Result Performing Organization Address [facility] Co de Phone Number [facility] [place] [place] [address] * Protime-INR (04/16/2025 9:58 AM CDT) PT 11.6 10.2 - 13.5 sec INR 1.03 0.90 - 1.20 [facility] Comment: Interpretive data Oral anticoagulant therapeutic ranges: Venous thromboembolism prophylaxis or treatment: 2.0-3.0 CARDIOLOGY Standard range: 2.0-3.0 High-intensity range: 2.5-3.5 Refer to indication-specific guidelines for appropriate target ranges for prosthetic heart valve replacement. Current interpretive data was last revised on 2019. Blood 04/16/2025 9:58 AM CDT 04/16/2025 10:09 AM CDT Result [facility] Trino Loza MD LAB BLOOD ORDERABLES Final Result Performing Organization Address [facility] de Phone Number [facility] [place] [place] [address] * MICHELLE ab ql w/rflx to MICHELLE [...] BLOOD ORDERABLES Final Result Performing Organization Address City/[facility]/ZIP Co de Phone Number [place] [address] * Allergic bronchopulmonary aspergillosis cascade (04/16/2025 9:46 AM CDT) IgE 9 <=100 IUnits/mL Blood 04/16/2025 9:46 AM CDT 04/16/2025 10:00 AM CDT Trino Loza MD LAB BLOOD ORDERABLES Final Result Performing Organization Address [facility] de Phone [place] [address] * [id number] proteotype (04/16/2025 9:46 AM CDT) alpha-1 antitrypsin 140 100 - 190 mg/dL [facility] Comment: ADDITIONAL INFORMATION Method: Nephelometry Test Performed by: [facility] [place] [address] Trade Facilitator: Ashleigh Liz Ph.D.; CLIA# [id number] proteotype S/Z See Footnote ELIUD NIETO Comment: S Mutation: Negative Z Mutation: Negative Results most consistent with MM phenotype. ADDITIONAL INFORMATION This test was developed and its performance characteristics determined by [facility] in a manner consistent with CLIA requirements. This test has not been cleared or approved by the U.S. Food and Drug Administration. Blood 04/16/2025 9:46 AM CDT 04/16/2025 10:43 AM CDT Trino Loza MD LAB BLOOD ORDERABLES Final Result Performing Organization Address City/[facility] Co de Phone Number ELIUD Tovar [facility] [place] [address] [place] [facility] * Immunoglobulin IgG subclasses (04/16/2025 9:46 AM CDT) IgG 978 767 - 1590 mg/dL [place] [facility] IgG, fraction 1 587 341 - 894 mg/dL [facility] IgG, fraction 2 192 171 - 632 mg/dL [facility] IgG, fraction 3 47.8 18.4 - 106.0 mg/dL [facility] IgG, fraction 4 65.2 2.4 - 121.0 mg/dL [facility] Comment: Test Performed by: [place] [address] Trade Facilitator: Ashleigh Liz Ph.D.; CLIA# [id number] Blood 04/16/2025 9:46 AM CDT 04/16/2025 10:43 AM CDT Trino Loza MD LAB BLOOD ORDERABLES Final Result Performing Organization Address [facility] Co de Phone Number ELIUD AMES [facility] Department [place] [address] [place] [facility] * ONI ab eval w/reflex (04/16/2025 9:46 AM CDT) ONI ab Negative Negative Comment: Interpretive Data Positive Screens will be reflexed to specific testing for Antibodies against the following antigens: Mindy-1 Ab, CARCASS WASHER Ab, Scl-70 Ab, Tirado Ab, SS-A/Ro Ab, and SS- B/La Ab. Further testing for dsDNA, Centromere, or Ribosomal P antibodies is suggested in patient with a positive screen and negative specific antibodies. Current interpretive data was last revised on 2022. Blood 04/16/2025 9:46 AM CDT 04/16/2025 10:00 AM CDT Trino Loza MD LAB BLOOD ORDERABLES Final Result Performing Organization Address [facility] de Phone Number [facility] [place] [address] * Anti-Neutrophilic Cytoplasmic Antibody (ANCA) with Reflex to MPO and PR3 Abs (04/16/2025 9:46 AM CDT) ANCA Negative Blood 04/16/2025 9:46 AM CDT 04/16/2025 10:00 AM CDT Trino Loza MD LAB BLOOD ORDERABLES Final Result Performing Organization Address [facility] Phone Number [facility] [place] [address] * Cyclic citrul peptide antibody, IgG (04/16/2025 9:46 AM CDT) CCP Ab <0.5 <=2.9 units/mL Comment: Interpretive data Negative: <3 units/mL Positive: > or equal to 3 units/mL Current interpretive data was last revised on 2016. Blood 04/16/2025 9:46 AM CDT 04/16/2025 10:00 AM CDT Trino Loza MD LAB BLOOD ORDERABLES Final Result Performing Organization Address [facility] [place] [address] * Rheumatoid factor (04/16/2025 9:46 AM CDT) Rheumatoid factor, quant <10.0 0.1 - 15.0 IUnits/mL Blood 04/16/2025 9:46 AM CDT 04/16/2025 10:00 AM CDT us Trino Loza MD LAB BLOOD ORDERABLES Final Result Performing Organization Address [facility] de Phone Number [facility] [place] [address] * IgA (04/16/2025 9:46 AM CDT) Immunoglobulin A 155 70 - 400 mg/dL Blood 04/16/2025 9:46 AM CDT 04/16/2025 10:00 AM CDT us Trino Loza MD LAB BLOOD ORDERABLES Final Result Performing Organization Address [facility] de Phone Number [facility] [place] [place] [address] * IgM (04/16/2025 9:46 AM CDT) Immunoglobulin M 76 40 - 230 mg/dL Blood 04/16/2025 9:46 AM CDT 04/16/2025 10:00 AM CDT us Trino Loza MD LAB BLOOD ORDERABLES Final Result Performing Organization Address [facility] [place] [address] * IgG (04/16/2025 9:46 AM CDT) Immunoglobulin G 1,061 700 - 1,600 mg/dL Blood 04/16/2025 9:46 AM CDT 04/16/2025 10:00 AM CDT us Trino Loza MD LAB BLOOD ORDERABLES Final Result [facility] Department [place] [address] * MRA Chest W WO Contrast (03/28/2025 [...] with Dr. Beto Loza via phone at 1343. Dictated by: Graeme Ruelas M.D. The radiology attending physician has personally reviewed this study, and had reviewed and/or edited this written report and agrees with it. Electronically signed by: Dillon Parker MD Narrative 03/27/2025 2:08 PM CDT EXAMINATION: TUMOR FDG-PET/CT IMAGING DATE OF STUDY: 03/27/2025 SCANNER: [employer]Star (SQ1). This is a high-resolution scanner, which [...] obtained. The study was interpreted on the [employer] workstation. The mean liver SUV (reported for chief quality officer purposes) is 2.3. The total scanned area [...] FDG-PET/CT IMAGING DATE OF STUDY: 03/27/2025 SCANNER: [facility] CardStar (SQ1). This is a high-resolution scanner, which [...] obtained. The study was interpreted on the [employer] workstation. The mean liver SUV (reported for chief quality officer purposes) is 2.3. The total scanned area [...] CDT) Histoplasma Ab, yeast CF Negative Negative [place] [facility] Histoplasma Ab, Immunodiffusion Negative Negative ELIUD ROBLEDOCH Comment: A negative complement fixation and immunodiffusion (CF/ID) result does not exclude the diagnosis of histoplasmosis. Repeat testing by CF/ID in 1-2 weeks if clinically indicated. Test Performed by: [place] [address] Trade Facilitator: Ashleigh Liz Ph.D.; CLIA# [id number] Blood 03/19/2025 11:1 4 AM CDT 03/19/2025 11:15 AM CDT Trino Loza MD LAB MICROBIOLOGY - G ENERAL ORDERABLES Final Result ELIUD KWAKUWCH [address] [facility]. [place] [address] [place] [facility] * Coccidioides antibody screen w/reflex Blood (03/19/2025 11:03 AM CDT) [facility] Coccidioides ab screen, ser Negative Negative [facility] Comment: Repeat testing on a new sample in 2-3 weeks if clinically indicated. ADDITIONAL INFORMATION This test has been modified from the horse groomer's instructions. Its performance characteristics were determined by [facility] in a manner consistent with CLIA requirements. This test has not been cleared or approved by the U.S. Food and Drug Administration. Test Performed by: [facility] [address] [place] [address] Trade Facilitator: Ashleigh Liz Ph.D.; CLIA# [id number] Blood 03/19/2025 11:0 3 AM CDT 03/19/2025 11:15 AM CDT Trino Loza MD LAB MICROBIOLOGY - G ENERAL ORDERABLES Final Result Performing Organization Address City/[facility] Co de Phone Number ELIUD BJWCH [address] [employer] [place] [address] [place] [facility] * Allergic bronchopulmonary aspergillosis cascade (03/19/2025 11:03 AM CDT) [facility] IgE 7 <=100 IUnits/mL Comment:Testing performed by : [facility], [address] [place]., [address] Blood 03/19/2025 11:0 3 AM CDT 03/19/2025 2:06 PM CDT Trino Loza MD LAB BLOOD ORDERABLES Final Result Performing Organization Address City/[facility]/ZIP Co de Phone Number ELIUD BJWCH [address] [employer]. [facility] [place] [address] * T-SPOT.TB Blood (03/19/2025 11:03 AM CDT) [facility] T-SPOT.TB Negative SeeBelow Comment: Normal Value: Negative [...] Passed CERNER BJWCH Comment: Test Performed at: [employer] [facility], [employer] [address] [place] [phone] NATALIA SYKES,PHD Blood 03/19/2025 11:0 3 AM CDT 03/19/2025 11:15 AM CDT Trino Loza MD LAB MICROBIOLOGY - G ENERAL ORDERABLES Final Result Performing Organization Address City/State/[facility] Co sc Phone Number ELIUD AMESWCH [address] [facility]. [place] [address] * Blastomyces antibody, EIA, serum Blood (03/19/2025 11:03 AM CDT) [facility] Blastomyces Antibody Negative Negative [facility] Comment: A single negative result does not exclude the diagnosis of blastomycosis. Repeat testing on a new sample in 7-14 days if clinically indicated. Test Performed by: [facility] [address] [place] [address] Trade Facilitator: Ashleigh Liz Ph.D.; CLIA# [id number] Blood 03/19/2025 11:0 3 AM CDT 03/19/2025 11:15 AM CDT Trino Loza MD LAB MICROBIOLOGY - G ENERAL ORDERABLES Final Result Performing Organization Address [facility] Co de Phone Number ELIUD BJWCH [address] [facility] [place] [address] [place] [facility] * Cryptococcal Antigen, Serum Blood (03/19/2025 11:03 AM CDT) Cryptococcus ag, Serum Negative Negative Comment:Testing performed by : [facility], [address] [place] [address], [place]., [address] Blood 03/19/2025 11:0 3 AM CDT 03/19/2025 3:07 PM CDT Trino Loza MD LAB MICROBIOLOGY - G ENERAL ORDERABLES Final Result Performing Organization Address [facility] de Phone Number [facility] [address] [facility] [place] [address] * Aspergillus galactomannan antigen Blood (03/19/2025 11:03 AM CDT) Aspergillus galactomannan Ag <0.500 <0.5 Index [facility] Comment: ADDITIONAL INFORMATION This is a qualitative test and the resulted index value is not indicative of disease severity. Serial testing is recommended for patients at high risk for invasive aspergillosis. This assay was performed using the FDA-cleared [employer] Platelia Aspergillus Galactomannan EIA. Test Performed by: [address] [address] Trade Facilitator: Ashleigh Liz Ph.D.; CLIA# [id number] Blood 03/19/2025 11:0 3 AM CDT 03/19/2025 11:15 AM CDT Trino Loza MD LAB MICROBIOLOGY - G ENERAL ORDERABLES Final Result ELIUD BJWCH [address] [facility]. [place] [address] [place] [facility] * XR Chest Pa Lateral [...] % [facility] FEV1/FVC PRE 74.6 % [facility] FEV1/FVC POST 79.6 % [facility] FRC PL PRE 2.93 L [facility] FRC PL %PRE PRED 102 % [facility] RV PRE 1.97 L [facility] RV %PRE PRED 87 % [facility] TLC PRE 4.48 L [facility] TLC %PRE PRED 89 % [facility] DLCO PRE 16.3 ml/min/mmH g [facility] DLCO %PRE PRED 88 % [facility] FIO2 % 21.00 % [facility] PaO2 84.0 mmHg [facility] PaCO2 42.0 mmHg [facility] pH 7.43 [facility] A-aDO2 POC 13.0 mmHg [facility] METHGB % 0.6 % [facility] COHb POC 1.2 % [facility] HCO3 27.9 mEq/L [facility] Anatomical Region Laterality Modality PFT 03/02/2025 10:3 7 AM CDT Narrative 03/02/2025 1:22 PM CDT Table formatting from the original result was not included. [facility] Division of Pulmonary & Critical Care Medicine [address] [place] [address]; Institute [address]; [place] [address]; [phone] Pulmonary Function Laboratory Pulmonary Stress Test Simple/Oxygen [...] Work [distance (m) x body wt (kg)]: 77577 kg.m (normal >60,000kg.m) Oxygen required to maintain [...] with the written final report. PFT performed at:->[facility] Adult PFT Lab- CAM-8D Procedure:->Oxygen Assessment Titration [...] and %HbO2 is age dependent. However, the [facility] Pulmonary Function Laboratory defines hypoxemia as a PaO2 <56 mm Hg or a %HbO2 <89%. Starting on June of 2024 the [facility] Pulmonary Function Laboratory utilizes race neutral GLI [...] Female Attending MD: Tania Oliveira M.D. Room: [facility] 9 Note Status: Finalized Procedure: [...] scope was passed under direct vision.The CF [id number] endoscope was introduced through the anus and advanced to the cecum, identified by appendiceal orifice and ileocecal valve. The colonoscopy was performed without difficulty. The patient tolerated the procedure well. The qualityof the bowel preparation was evaluated using the BBPS ([place] Bowel Preparation Scale) with scores of:Right Colon [...] the days following this procedure please call [phone]. After hours and evenings please call [phone] speak to the GI fellow transmission worker. Please tell thefellow that Dr. Rosariod your [...] On: 03/28/2023 10:06 AM Recognized by the [employer] for promoting quality [...] Recently Relevant to Health Maintenance Insurance MEDICARE [employer] INSURANCE MEDICARE A INSURANCE MEDICARE A INSURANCE Advance Directives For more information, please contact: [phone] * Full Code (Latest Code Status on File) Date Activated Date Inactivated Comments 03/04/2021 4:57 PM 03/04/2021 9:03 PM Care Teams Dermatology Procedural Physician Relationship Specialty Start Date End Date Jeffry Horton MD [address] [place] [address] DR Tom DIEZ [address] [place] [address] PCP - General Internal Medicine 11/05/17 Ligia Lasren MD [address] [facility] [address] LL [address] [place] [address] Radiation Oncologist Radiation Oncology 09/10/18 Aft, Jennie Pack MD PhD [address] [facility] [address] # LL [facility] [address] [place] [address] Surgeon Surgical Oncology 09/10/18 Donna Moser, PhD [address] [facility] [address] LL [facility] [address] [place] [address] Nurse Practitioner Radiation Oncology 09/10/18 Nae Hunt CIGAR HEAD HOLER [address] [place] [address] Nurse Practitioner Medical Oncology 01/12/20 Trino Loza MD [address] [facility] [address] DIV IM PULMONARY AND CCM, [address] [place] [address] Referring Physician Pulmonary Disease 04/30/25 Danika Elizondo MD PhD [address] [facility] [address] DIV IM MEDICAL ONCOLOGY, [address], [address], [address] [place] [address] Medical Oncologist/Video Editor Medical Oncology 04/30/25
--- OUTSIDE RECORDS SUMMARY | 2025-05-20 17:02 | XMS_ITS | Encounter Summary ---
Author Organization [facility] Address [address] [place] [address] Phone Care Team Providers Care Control Operator Flow Coat Name Role Phone Jeffry Horton MD Primary Care Provider [phone] Ligia Larsen MD Unavailable Aft, Jennie Pack MD PhD Unavailable Donna Moser PhD Unavailable [phone] Nae Hunt CLAIMS EXAMINER Unavailable [phone] Trino Loza MD Unavailable [phone] Danika Elizondo MD PhD Unavailable Encounter Details Date Type Department Care Team (Late st Contact Info) Description 10/15/2022 Documentation [facility] Medicine Gastroenterology [address] [facility] 2nd [address] [place] [address] Tania Oliveira MD [address] [place] [address] Social History Tobacco Use Types [...] on file Legal Sex Female 1:14 AM VALET ATTENDANT Gender Identity Female 05/14/2020 6:01 PM VALET ATTENDANT Sexual Orientation Straight 03/03/2019 8: 24 PM CDT 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 Not on file Not on file Not on file documented as of this encounter Plan of Treatment Not on file documented as of this encounter Visit Diagnoses Not on filedocumented in this encounter Care Teams Control Operator Flow Coat Relationship Specialty Start Date End Date Jeffry Horton MD [address] [place] [address] DR Santos [address] [address] PCP - General Internal Medicine 11/05/17 Ligia Larsen MD [address] [place] [address] Radiation Oncologist Radiation Oncology 09/10/18 Jennie Liu MD PhD [address] [address] Surgeon Surgical Oncology 09/10/18 Donna Moser, PhD [address] [address] Nurse Practitioner Radiation Oncology 09/10/18 Nae Hunt CLAIMS EXAMINER [address] [place] [address] Nurse Practitioner Medical Oncology 01/12/20 Trino Loza MD [address] [facility] [address] DIV IM PULMONARY AND CCM, [address] [place] [address] Referring Physician Pulmonary Disease 04/30/25 Danika Elizondo MD PhD [address] [facility] [address] DIV IM MEDICAL ONCOLOGY, [facility] 7A, 7B, [address] [place] [address] Medical Oncologist/Historiography Teacher Medical Oncology 04/30/25 documented as of this encounter
--- OUTSIDE RECORDS SUMMARY | 2025-05-20 17:02 | XMS_ITS | Encounter Summary ---
Author Organization [facility] Address [address] [place] [address] Phone Care Team Providers Care Aviation Electrician Name Role Phone Jeffry Horton MD Primary Care Provider [phone] Ligia Larsen MD Unavailable Aft, Jennie Pack MD PhD Unavailable [phone] Donna Moser PhD Unavailable [phone] Nae Hunt PILOT STEAM YACHT Unavailable [phone] Trino Loza MD Unavailable [phone] Danika Elizondo MD PhD Unavailable [phone] Reason for Referral * Diagnostic Imaging (Routine) - Closed Specialty Diagnoses / Procedures Referred By Alex gomez Referred To Contact Diagnoses Combined form of age-related cataract, both eyes Procedures IOL Biometry - OU - Both Eyes Claire Mendoza MD Phone: tel: fax: [facility] (All Locations) Referral ID Status Reason Start Date Expiration Date Visits Re quested Visits Authorized [id number] Closed 02/21/2024 03/22/2025 1 1 Encounter Details Date Type Department Care Team (Late st Contact Info) Description 02/21/2024 Orders Only [facility] Medicine Ophthalmology 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 documented as of this encounter Procedures Procedure Name Priority Date/Time Associated Diagnosis Comments TOPOGRAPHY NON-BILLABLE - OU - BOTH EYES Routine 04/23/2024 3:54 PM BIOMEDICAL ENGINEERING AIDE Combined form of age-related cataract, both eyes documented in this encounter Results * Topography Non-Billable - OU - Both Eyes (04/23/2024 3:54 PM BIOMEDICAL ENGINEERING AIDE) Anatomical Region Laterality Modality Head Other Narrative 04/25/2024 1:05 PM BIOMEDICAL ENGINEERING AIDE Good cooperation Non-billable topography for preoperative measurements. Will review for cataract surgery us Claire Mendoza MD OPHTH MAPPING Final Result * IOL Biometry - OU - Both Eyes (04/23/2024 3:53 PM BIOMEDICAL ENGINEERING AIDE) AC IOL (OS) 2.68 CONTINUUM AC IOL (OD) 2.62 CONTINUUM White to White (OS) 11.8 mm CONTINUUM White to White (OD) 12.2 mm CONTINUUM A LENGTH (OS) 23.65 CONTINUUM A LENGTH (OD) 23.25 CONTINUUM Anatomical Region Laterality Modality Head Other Narrative 04/25/2024 1:06 PM BIOMEDICAL ENGINEERING AIDE Right Eye Axial length was 23.25. White [...] eyes documented in this encounter Care Teams Aviation Electrician Relationship Specialty Start Date End Date Jeffry Horton MD [address] [facility] [place] [address] PCP - General Internal Medicine 11/05/17 Ligia Larsen MD [address] [place] [address] Radiation Oncologist Radiation Oncology 09/10/18 Jennie Liu MD PhD [address] LL [address] [place] [address] Surgeon Surgical Oncology 09/10/18 Donna Moser, PhD [address] LL [address] [place] [address] Nurse Practitioner Radiation Oncology 09/10/18 Nae Hunt, PILOT STEAM YACHT [address] [place] [address] Nurse Practitioner Medical Oncology 01/12/20 Trino Loza MD [address] DIV IM PULMONARY AND CCM, [address] [place] [address] Referring Physician Pulmonary Disease 04/30/25 Danika Elizondo MD PhD [address] DIV IM MEDICAL ONCOLOGY, [address], [address] [place] [address] Medical Oncologist/Statistical Assistant Medical Oncology 04/30/25 documented as of this encounter
--- OUTSIDE RECORDS SUMMARY | 2025-05-20 17:02 | XMS_ITS | Clinical Summary ---
Author Organization [facility] Address [address] [place] [address] Care Team Providers Care Associate Material Handler Name Role Phone Homero Hernández MD Primary Care Provider [phone] Source Comments [facility],non-owned Affiliates and Associated Physician Practices is amultiple site organization consisting of ambulatory clinics and hospital sitesin [place], [place], [place] and [place]. This disclosure is being madepursuant to the Care Everywhere program and may not contain all information available regarding this patient. Last updated 18.[employer] [facility] Allergies No known active allergies Medications * Be aware that medications may not be up to date on this document. Alwaysverify current medications with the patient. cetirizine (ZYRTEC) 10 MG tablet Take 10 mg by mouth once daily. Active Cholecalciferol (VITAMIN D) 1000 UNITS capsule Take 1,000 Units by mouth once daily. Active [place]-3 Fatty Acids (FISH OIL) 1000 MG CAPS capsule Take 1,000 mg by mouth. Active glucosamine (GLUCOSAMINE) 500 MG capsule Take 500 mg by mouth 3 times daily with meals. Active magnesium 30 MG tablet Take 30 mg by mouth once daily. Active support hose knee high closed toe (TEDS) support hose Apply 1 Each to affected area as directed. 2 Each 1 05/18/2014 Active Social History Tobacco Use Types Packs/Day Years Used Date Smoking Tobacco: Never Assessed Comments Unknown Sex and Gender Information Value Date Recorded Sex Assigned at Not on file Legal Sex Female 7:55 AM CAREER DEVELOPMENT COORDINATOR Gender Identity Not on file Sexual Orientation Not on file Last Filed Vital Signs Vital Sign Reading Time Taken Comments Blood Pressure 109/62 05/18/2014 1:00 PM CAREER DEVELOPMENT COORDINATOR Pulse 74 05/18/2014 1:01 PM CAREER DEVELOPMENT COORDINATOR Temperature 36.1 C (97 F) 05/18/2014 11:40 AM CAREER DEVELOPMENT COORDINATOR Respiratory Rate 16 05/18/2014 1:01 PM CAREER DEVELOPMENT COORDINATOR Oxygen Saturation 100% 05/18/2014 1:01 PM CAREER DEVELOPMENT COORDINATOR Inhaled Oxygen Concentration - - Weight 62.6 kg (138 lb) 05/18/2014 11:40 AM CAREER DEVELOPMENT COORDINATOR Height 162.6 cm (5' 4) 05/18/2014 11:40 AM CAREER DEVELOPMENT COORDINATOR Body Mass Index 23.69 05/18/2014 11:40 AM CAREER DEVELOPMENT COORDINATOR Plan of Treatment Health Maintenance Due Date Last Done Comments BONE DENSITY TESTING 1950 COLOGUARD (AGES 45-75) - COL ON CA SCREENING 1950 COLON MONITORING 1950 COLONOSCOPY - COLON CA SCREENING 1950 CT COLONOGRAPHY - COLON CA SCREENING 1950 Colorectal Cancer Screening 1950 FIT - COLON CA SCREENING 1950 FLEX SIG - COLON CA SCREENING 1950 LIPID TESTING 1950 MAMMOGRAM 1950 HEPATITIS C SCREENING 12/24/1968 DTAP/TDAP/TD VACCINES (1 - Tdap) 1969 PNEUMOCOCCAL VACCINE 50+ (1 of 1 - PCV) 2000 ZOSTER VACCINE (1 of 2) 2000 DEPRESSION SCREENING 06/18/2024 COVID-19 VACCINE (1 - 2024-2 6 season) 2025 INFLUENZA VACCINE (#1) 2025 Respiratory Syncytial Virus (RSV) Vaccine Pt: or over 60 yrs (1 - 1-dose 75+ series) 2025 HEPATITIS B VACCINE Aged Out No longe r eligible based on patient's age to complete this topic HIB VACCINE Aged Out No longer eligi ble based on patient's age to complete this topic HPV VACCINE Aged Out No longer eligi ble based on patient's age to complete this topic MENINGOCOCCAL (Group B) VACC INE SHARED DECISION-MAKING Aged Out No longer eligibl e based on patient's age to complete this topic MENINGOCOCCAL GROUPS A/C/Y/W VACCINE Aged Out No longer eligible b ased on patient's age to complete this topic Insurance [facility] Care Teams Associate Material Handler Relationship Specialty Start Date End Date Homero Hernández MD [address] [place] [id number] PCP - General 05/18/14
--- OUTSIDE RECORDS SUMMARY | 2025-05-20 17:02 | XMS_ITS ---
Author Organization [facility] Address [address] [address] Care Team Providers Care Pet Store Merchandiser Name Role Phone Jeffry Horton MD Primary Care Provider [phone] Ligia Larsen MD Unavailable AftJennie MD PhD Unavailable [phone] Donna Moser PhD Unavailable Nae Hunt LEGAL EXECUTIVE ASSISTANT Unavailable [phone] Trino Loza MD Unavailable [phone] Danika Elizondo MD PhD Unavailable [phone] Active Problems Patient Care Coordination No [...] 03/25/2025 Assessment & Plan (04/20/2025 2:49 PM SHEARING SUPERVISOR): Incidental finding on CT imaging. Managing without medications. 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 Right posterior capsular opacification Glaucoma suspect of both eyes 01/07/2025 Pseudophakia of right eye 06/04/2024 Overview (06/04/2024): 06/04/2024- Extraction Cataract - Phacoemulsification And Lens Implant - Right [id number] of power 22.0D AIM: PLANO Assessment & Plan (06/20/2024 9:18 AM SHEARING SUPERVISOR): Status-post Extraction Cataract - Phacoemulsification And Lens [...] eye. Assessment & Plan (06/04/2024 11:17 AM SHEARING SUPERVISOR): Post op day 1s/p Extraction Cataract - [...] 08/25/2022 Assessment & Plan (05/01/2025 12:23 PM SHEARING SUPERVISOR): 1. Chronic, well controlled 2. Discussed how [...] 03/12/2022 Assessment & Plan (05/01/2025 12:23 PM SHEARING SUPERVISOR): - Chronic, well-controlled - The patient is [...] (07/02/2020): Added automatically from request for surgery [id number] Assessment & Plan (02/14/2025 10:15 AM CDT): [...] 03/06/2018 Assessment & Plan (04/20/2025 2:53 PM SHEARING SUPERVISOR): Diet-controlled hyperlipidemia. Target LDL less than 130. [...] 10/03/2017 Assessment & Plan (06/20/2024 9:18 AM SHEARING SUPERVISOR): BAT to visually sig but no issues [...] angles Assessment & Plan (07/05/2023 2:31 PM SHEARING SUPERVISOR): Not visually significant. Do not recommend surgery [...] (OS)>OD Assessment & Plan (05/20/2021 10:32 AM SHEARING SUPERVISOR): Not visually significant. Do not recommend surgery at this time. Continue to monitor. Patient to call if problems with activities of daily living. Brochure offered/given. left eye (OS)>OD Assessment & Plan (05/19/2020 3:11 PM SHEARING SUPERVISOR): Not visually significant. Do not recommend surgery [...] 05/20/202112/17 Assessment & Plan (07/05/2023 2:31 PM SHEARING SUPERVISOR): Has always been hyperopic No longer wearing [...] past. Assessment & Plan (05/20/2021 10:38 AM SHEARING SUPERVISOR): Has always been hyperopic No longer wearing CTL MRx is better than +1.25 OTC, but will try various OTC first. Did not like bifocals in the past. 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 No need to garrido into cataract extraction (CE) left eye (OS) yet. Will monitor. Cotninue timolol BID Assessment & Plan (06/05/2024 8:13 AM SHEARING SUPERVISOR): On timolol both eyes (OU) chronically- will continue Now open angles right eye (OD) Will monitor. Assessment & Plan (05/21/2024 8:56 PM SHEARING SUPERVISOR): Follows with Dr. Mendoza, here for second [...] (OU). Assessment & Plan (07/05/2023 3:51 PM SHEARING SUPERVISOR): History of CDR asymmetry & large optic [...] asymmetry & large optic nerves ([place] in [place]). No FHx, normal pach Reviewed OCT and HVF today. right eye (OD) with slight suggestion of changes right eye (OD)>OS, but no glaucomatous changes. Assessment & Plan (05/20/2021 10:35 AM SHEARING SUPERVISOR): History of CDR asymmetry. intraocular pressure (IOP) WNL, normal testing and pachs. First time with higher intraocular pressure (IOP). No FHx. Plan baseline testing- HVF and ONOCT Assessment & Plan (05/19/2020 3:07 PM SHEARING SUPERVISOR): History of CDR asymmetry. intraocular pressure (IOP) WNL, normal testing and pachs. Will continue to monitor. Assessment & Plan (10/01/2018 10:11 AM CDT): Glaucoma suspect based on CDR asymmetry: IOP within normal limits, RNFL normal, visual field and pachs today: Trichiasis 10/03/2017 01/07/2025 Low back pain 04/13/2016 02/14/2025 Overview (05/21/2024): with radiculopathy -seeing ortho at [place] s/p laminectomy 1996 Abnormal mammogram 08/23/2015 8 Mammogram abnormal 08/23/2015 8
--- OUTSIDE RECORDS SUMMARY | 2025-05-20 17:02 | XMS_ITS | Encounter Summary ---
Author Organization [facility] Address [address] [place] [address] Care Team Providers Care Propulsion Machinery Service Engineer Name Role Phone Jeffry Horton MD Primary Care Provider [phone] Ligia Laresn MD Unavailable Aft, Jennie Pack MD PhD Unavailable [phone] Donna Moser PhD Unavailable [phone] Nae Hunt MACHINE SAND MIXER Unavailable [phone] Trino Loza MD Unavailable [phone] Danika Elizondo MD PhD Unavailable [phone] Encounter Details Date Type Department Care Team (Late st Contact Info) Description 09/27/2020 Telephone [facility] [address] [place] [address] [place] [address] Johanna Fitzgerlad, RT Social History Tobacco Use Types Packs/Day [...] on file Legal Sex Female 1:14 AM BUSINESS PROCESS EXPERT Gender Identity Female 05/14/2020 6:01 PM BUSINESS PROCESS EXPERT Sexual Orientation Straight 03/03/2019 8: 24 PM CDT 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 [address] [place] [address] PCP - General Internal Medicine 11/05/17 Ligia Larsen MD [address] [facility] [address] [place] [address] Radiation Oncologist Radiation Oncology 09/10/18 IvonnetJennie MD PhD [address] LL [facility] [address] [place] [address] Surgeon Surgical Oncology 09/10/18 Donna Moser, PhD [address] LL [facility] [address] [place] [address] Nurse Practitioner Radiation Oncology 09/10/18 Nae Hunt, MACHINE SAND MIXER [address] [place] [address] Nurse Practitioner Medical Oncology 01/12/20 Trino Loza MD [address] DIV IM PULMONARY AND CCM, [address] [place] [address] Referring Physician Pulmonary Disease 04/30/25 Danika Elizondo MD PhD [address] DIV IM MEDICAL ONCOLOGY, [address] [place] [address] Medical Oncologist/Growth Hacker Medical Oncology 04/30/25 documented as of this encounter
== END 2025-05-20 16:17 | disposition home or self-care (01) ==
LOC: ANHED 15:57
PROVIDERS: Emergency Provider Nurse Practitioner Family
DX: S92.345A Nondisplaced fracture of fourth metatarsal bone, left foot, initial encounter for closed fracture (principal); S92.355A Nondisplaced fracture of fifth metatarsal bone, left foot, initial encounter for closed fracture; M19.011 Primary osteoarthritis, right shoulder; W10.9XXA Fall (on) (from) unspecified stairs and steps, initial encounter
CPT/HCPCS: 73610; 73630; 99284